=== PATIENT | female | born 1965 | race Caucasian/White ===

== ENCOUNTER 2018-01-30 05:19 | Emergency (ER) | payer BC ==
[2018-01-30] MEDS ORDERED: HYDROmorphone 0.5 MG/0.5 ML SYRINGE IVPUSH ONE ×2 (05:35→06:47)
[2018-01-30] MEDS ORDERED: Metoclopramide 10 MG/2 ML SDV IVPUSH ONE (05:36)
--- NOTE | 2018-01-30 05:40 | EDM.PDOC ---
ED HPI GENERAL MEDICAL PROBLEM - General Chief Complaint: Back Pain or Injury Stated Complaint: BACK PAIN Time Seen by Provider: 01/30/18 05:35 Source of Information: Reports: Patient, Family (spouse) History Limitations: Reports: No Limitations - History of Present Illness INITIAL COMMENTS - FREE TEXT/NARRATIVE: 52-year-old female presents to the ED with her spouse. She awoke around 0130 hrs. this morning with severe bilateral lower back pain radiating into her left groin. She does have pressure rating into her bulb at present. Associated nausea and vomiting from the intensity of the pain 3. Mostly bilious without blood. Does have some feeling of need to void but did not defecate. No history of kidney stones. Pain is currently a 6 out of 10. She is a insulin-dependent diabetic 42 years. Sugars were checked at home and were in the 200s. Currently no position is comfortable. She was fine when she went to bed last night. Onset: Today Onset Date: 01/30/18 Onset Time: 01:30 Duration: Hour(s): Location: Reports: Abdomen (Left lower quadrant abdominal pain), Back (Diffuse low back pain felt across both sides of the L5 facet joint distribution.) Quality: Reports: Other (Pain is constant with a strong intermittent severe colicky component) Severity: Moderate Improves with: Reports: None Worsens with: Reports: None Context: Reports: Other (Awoke from sleep with terrible pain.). Denies: Activity, Exercise, Lifting, Sick Contact, Trauma Associated Symptoms: Reports: Loss of Appetite (Due to the intensity of the pain.), Nausea/Vomiting Treatments DISABILITY MANAGER: Reports: Other (see below) (None.) Bilateral Back Pain Score (Numeric/FACES): 8 - Related Data Allergies Allergy/AdvReac Type Severity Reaction Status Date / Time No Known Allergies Allergy Verified 01/30/18 05:24 Home Meds: Home Meds oxyCODONE HCl/Acetaminophen [Percocet 5-325 mg Tablet] 1 - 2 each PO Q4H PRN # 10 tablet 01/30/18 [Rx] Past Medical History HEENT History: Reports: Impaired Vision Other HEENT History: Wears glasses Endocrine/Metabolic History: Reports: Diabetes, Type I, Hypothyroidism Social & Family History - Living Situation & Occupation Living situation: Reports: Occupation: Employed ED ROS GENERAL - Review of Systems Review Of Systems: See Below Constitutional: Reports: Fatigue, Decreased Appetite. Denies: Fever, Chills HEENT: Reports: No Symptoms Respiratory: Reports: No Symptoms Cardiovascular: Reports: No Symptoms Endocrine: Reports: Fatigue GI/Abdominal: Reports: Abdominal Pain (Diffuse lower abdominal pain mostly suprapubic and little more in the left as compared to the right.), Nausea, Vomiting (Precipitated by intensity of the pain that awoke from sleep at 0130 hrs. this morning) : Reports: Frequency, Urgency. Denies: Dysuria, Flank Pain Musculoskeletal: Reports: Back Pain (Diffuse low back pain) Skin: Reports: No Symptoms Neurological: Reports: No Symptoms Psychiatric: Reports: No Symptoms Hematologic/Lymphatic: Reports: No Symptoms Immunologic: Reports: No Symptoms ED EXAM,LOWER BACK PAIN/INJURY - Physical Exam Exam: See Below Exam Limited By: No Limitations General Appearance: Alert, WD/WN, Moderate Distress (Obviously in pain. No position is comfortable) Eye Exam: Bilateral Eye: Normal Inspection Respiratory/Chest: No Respiratory Distress, Lungs Clear, Normal Breath Sounds Cardiovascular: Normal Peripheral Pulses, Regular Rate, Rhythm, No Edema, No Murmur, No Rub GI/Abdominal: No Organomegaly, No Abnormal Bruit, No Mass, Tender (Mild tenderness suprapubically.), Abnormal Bowel Sounds (Fairly quiet sent bowel sounds.), Other (Some ecchymoses in various locations from insulin injections.) . No: Rigid, Rebound Back Exam: Normal Inspection, Full Range of Motion. No: CVA Tenderness (L), CVA Tenderness (R) Extremities: Normal Inspection, Normal Range of Motion, Non-Tender, No Pedal Edema Neurological: Alert, Normal Mood/Affect, Normal Dorsiflexion, CN II-XII Intact, Oriented x 3 Skin Exam: Warm, Intact, Normal Color, No Rash Course - Vital Signs Last Recorded V/S: Last Vital Signs Temp 37.8 C 01/30/18 05:26 Pulse 83 01/30/18 05:26 Resp 18 01/30/18 05:26 BP 154/71 H 01/30/18 05:26 Pulse Ox 95 01/30/18 05:26 - Orders/Labs/Meds Orders: Active Orders 24 hr Category Date Time Status URINALYSIS W/MICROSCOPIC [UA W/MICROSCOPIC] [URIN] Stat Lab 01/30/18 07:13 Ordered Dicyclomine [Bentyl] Med 01/30/18 07:18 Once 20 mg PO ONETIME ONE Magnesium Citrate [Citrate of Magnesia] Med 01/30/18 07:19 Once 240 ml PO ONETIME ONE Sodium Chloride 0.9% [Normal Saline] 1,000 ml Med 01/30/18 07:00 Active IV ASDIRECTED Medication Orders Dicyclomine HCl (Bentyl) 20 mg PO ONETIME ONE Stop: 01/30/18 07:19 Sodium Chloride (Normal Saline) 1,000 mls @ 999 mls/hr IV ASDIRECTED [facility] Meds: Medications Generic Name Dose Route Start Last Admin Trade Name Freq PRN Reason Stop Dose Admin Dicyclomine HCl 20 mg 01/30/18 07:18 Bentyl PO 01/30/18 07:19 ONETIME ONE Sodium Chloride 1,000 mls @ 999 mls/hr 01/30/18 07:00 Normal Saline IV ASDIRECTED [facility] Discontinued Medications Generic Name Dose Route Start Last Admin Trade Name Freq PRN Reason Stop Dose Admin Hydromorphone HCl 1 mg 01/30/18 05:35 01/30/18 05:47 Dilaudid IVPUSH 01/30/18 05:36 1 mg ONETIME ONE Administration Hydromorphone HCl 0.5 mg 01/30/18 06:47 01/30/18 06:53 Dilaudid IVPUSH 01/30/18 06:48 0.5 mg ONETIME ONE Administration Sodium Chloride 1,000 mls @ 150 mls/hr 01/30/18 05:45 01/30/18 06:48 Normal Saline IV 999 mls/hr ASDIRECTED [facility] Infusion Metoclopramide HCl 7.5 mg 01/30/18 05:36 01/30/18 05:45 Reglan IVPUSH 01/30/18 05:37 7.5 mg ONETIME ONE Administration - Radiology Interpretation Free Text/Narrative:: 52-year-old female presents to the ED after wakening suddenly from sleep with severe bilateral low back pain radiating into the left groin and vulvar area. Associated nausea and vomiting with the onset of the pain at about 1:30 this morning. Feeling fine. No position is been carpal since onset of the pain. Pain is constant but has a strong intermittent colicky component. She has no known chronic back problems. On examination quite bowel sounds throughout. Anion abdomen on examination. No CVA tenderness. The history is strongly suggestive of a renal colic problem. CT abdomen without contrast will be done Urinalysis 1 one becomes available. IV will be normal saline at 150 mils per hour. Dilaudid 1 mg IV with Reglan 7.5 mg IV for nausea and pain relief. Toradol and not be given as she's been insulin-dependent diabetic 42 years. - Re-Assessments/Exams Free Text/Narrative Re-Assessment/Exam: 01/30/18 06:34 CT the abdomen has been completed. Liver appears to be normal. Gallbladder is visualized without any obvious gallstones. Pancreas is mildly atrophic. Spleen is normal. Both kidneys are atrophic in appearance. There is minimal bilateral perinephric stranding. I could not identify any dilatation of the ureters or evidence of stone disease. There are no stones within the renal parenchyma. The colon is fairly stool-filled ,particularly on the right side up to the hepatic flexure. No evidence of diverticulitis is evident. Appendix is visualized and is felt to be within normal limits. Disc spaces are well maintained although there are moderate degenerative arthritic changes in the lumbar spine. Therefore no specific cause for her diffuse low back pain is identified. I will await V rad report. 01/30/18 06:39 Still has not been able to void. Pain is still of 5 or 6 out of 10 in her low back. She reports that when she was in to see her family physician couple weeks back she was identified to have a low-grade bacterial infection I suspect bacterial vaginosis by the way she speaking and she was on a one-week course of Flagyl. Been off this medication for couple of weeks. There was no mention of PID. Plan I'm going to open up her IV so that I can get a urine specimen. Will give her 0.5 of Dilaudid IV for further pain relief. 01/30/18 07:19 radiologist is over read her CT and agrees with me with no positive findings. His only the significant finding of constipation as a possible cause of her pain. Possible due to diabetes that she may have ischemia of an organ but this is certainly not evident at this time. I'm going to allow her to go home and provide bowel cleanse with Citroma 8 ounces but quit by mouth for 6 ounces of juice of choice. Bentyl 20 mg will be given by mouth now to help alleviate cramping /colicky pain. It may take a few hours for the Citroma to work as she has pain medicine on board. Once her bowel cleanse her pain should be gone. She was advised if she is not better by 4:00 this afternoon she is to return to the ED. She will need further investigations and imaging. Departure - Departure Time of Disposition: 07:23 Disposition: Home, Self-Care 01 Condition: Fair Clinical Impression: Constipation by delayed colonic transit Low back pain Qualifiers: Chronicity: acute Back pain laterality: bilateral Sciatica presence: without sciatica Qualified Code(s): M54.5 - Low back pain - Discharge Information Prescriptions: oxyCODONE HCl/Acetaminophen [Percocet 5-325 mg Tablet] 1 - 2 each PO Q4H PRN # 10 tablet PRN Reason: pain relief. Referrals: Kobe Maravilla MD [Primary Care Provider] - Forms: ED Department Discharge, ED Return to Work/School Form Additional Instructions: Evaluation the emergency room this morning due to awakening from sleep with severe low back pain which was more or less bilateral. Associated development of nausea and vomiting. Pain in the left lower groin and vulvar area. Concern was for possibility of a kidney stone. You received medication Dilaudid 1 mg IV with Reglan 710 mg IV for relief of pain and nausea. Subsequent he required another 0.5 mg of Dilaudid for pain relief. CT scan of the abdomen and pelvis was performed and did not reveal any evidence of kidney stones. Gallbladder shows no evidence of stones liver pancreas appeared to be normal. The only positive finding was increased stool throughout the entire colon compatible with constipation. Pelvic organs look to be normal with ovaries present without any major cysts or free fluid in the pelvis. Back bones also look to be okay without any stents severe degenerative disc disease or degenerative arthritis. Changes were age-appropriate. Suggest treatment with Citroma 8 ounces by mouth with 6 ounces of juice of choice orally once when you get home this morning. This may take a few hours to kick in situ pain medicine on board. Bowls should work 3-5 times over the next 6-8 hours. This should alleviate your lower abdominal /back pain. May use Percocet 5/3/25 milligram tablet 1 or 2 every 4-6 hours if needed for pain relief. If you are not we will back to normal within the next 8-12 hours you're to return to the ED for further investigations. Obviously off work today and in no provided in this regard. - My Orders Last 24 Hours: My Active Orders 01/30/18 07:00 Sodium Chloride 0.9% [Normal Saline] 1,000 ml IV ASDIRECTED 01/30/18 07:13 URINALYSIS W/MICROSCOPIC [UA W/MICROSCOPIC] [URIN] Stat 01/30/18 07:18 Dicyclomine [Bentyl] 20 mg PO ONETIME ONE 01/30/18 07:19 Magnesium Citrate [Citrate of Magnesia] 240 ml PO ONETIME ONE - Assessment/Plan Last 24 Hours: My Active Orders 01/30/18 07:00 Sodium Chloride 0.9% [Normal Saline] 1,000 ml IV ASDIRECTED 01/30/18 07:13 URINALYSIS W/MICROSCOPIC [UA W/MICROSCOPIC] [URIN] Stat 01/30/18 07:18 Dicyclomine [Bentyl] 20 mg PO ONETIME ONE 01/30/18 07:19 Magnesium Citrate [Citrate of Magnesia] 240 ml PO ONETIME ONE
[2018-01-30] MEDS ORDERED: Sodium Chloride 0.9% 1,000 ML IV SCH ×2 (05:45→07:00)
--- NOTE | 2018-01-30 06:57 | CT ---
CT abdomen and pelvis Technique: Multiple axial sections were obtained from top of the liver inferiorly through the pubic symphysis. Intravenous and oral contrast was not utilized. Comparison: No previous study. Findings: Kidneys show no abnormal calcifications. Adrenal glands show no nodule. No abnormal calcifications are seen within the kidneys. Ureters show no dilatation. No abnormal calcifications are seen along the course of the ureters. Visualized lung bases shows nothing acute. Noncontrast appearance of the spleen and liver shows no focal abnormality. Adrenal glands show no nodule. Pancreas appears within normal limits. Gallbladder contains no calcified gallstones. Aorta shows no aneurysmal dilatation. No retroperitoneal adenopathy or mesenteric abnormalities are seen. Appendix is seen which is normal in size. No pelvic mass or adenopathy is seen. Low density areas are seen within the cervix believed to represent incidental nabothian cysts. Bone window settings were reviewed which shows slight degenerative change within the spine. Impression: 1. No renal calculi, ureteral dilatation or ureteral stone is seen. 2. Other incidental findings. Nothing acute is appreciated on noncontrast CT study of the abdomen and pelvis. Diagnostic code #2
[2018-01-30] MEDS ORDERED: Dicyclomine 10 MG Cap PO ONE (07:18)
[2018-01-30] MEDS ORDERED: Magnesium Citrate Solution 296 ML Bottle PO ONE (07:19)
== END 2018-01-30 07:52 | disposition home or self-care (01) ==
LOC: JD.ED 05:19
DX: K59.01 Slow transit constipation (principal); M54.5 Low back pain; E10.9 Type 1 diabetes mellitus without complications
CPT/HCPCS: 74176; 81001; 96361; 96374; 96375; 96376; 99284; J1170; J2765; J7040

== ENCOUNTER 2018-02-15 11:26 | Inpatient (IN) | payer BC ==
[2018-02-15] MEDS ORDERED: Lactated Ringers 1,000 ML IV ONE ×2 (12:29→13:48)
[2018-02-15] MEDS ORDERED: Sodium Chloride 0.9% 10 ML Syringe FLUSH PRN (12:30)
[2018-02-15] MEDS ORDERED: Ondansetron 4 MG/2 ML SDV IVPUSH ONE (12:30)
--- NOTE | 2018-02-15 12:58 | EDM.PDOC ---
ED HPI GENERAL MEDICAL PROBLEM - General Chief Complaint: Diabetic Complaint Stated Complaint: BODY ACHES/VOMITING Time Seen by Provider: 02/15/18 12:13 Source of Information: Reports: Patient History Limitations: Reports: No Limitations - History of Present Illness INITIAL COMMENTS - FREE TEXT/NARRATIVE: 52-year-old female presents for evaluation and treatment of abdominal discomfort , vomiting and malaise. She states she has been feeling unwell for the last 2 weeks. She was seen in our ER proximally 2 weeks ago. UA and CT of the abdomen and pelvis without IV and oral contrast was done. She states she was diagnosed with constipation. She did the bowel cleanout as prescribed but her symptoms continue to worsen. This Sunday she saw her primary care provider, Dr. Chauhan, she had lab work done. On Sunday she was given fluids. She feels that her symptoms are slowly worsening. Patient reports current symptoms of generalized abdominal discomfort which she describes as an intermit "fire ". reports that she had an episode of diaphoresis and dizziness earlier which prompted the visit to the ER tonight. She has been feeling nauseous and vomited once this morning. She states that she is not much and appetite has not much to eat since last Sunday. In addition she has a dry nonproductive cough. No ear pain or sore throat. Patient has a past medical history of type 1 diabetes. She is currently on sliding scale NovoLog and Toujeo at night. Last dose of Toujeo was last night. Her last dose of NovoLog was this morning, she states that she utilized 4 units. Her last blood sugar was 289 this morning. She has never had any history of DKA. Generalized Pain Score (Numeric/FACES): 8 lower abdomen Pain Score (Numeric/FACES): 2 - Related Data Allergies Allergy/AdvReac Type Severity Reaction Status Date / Time No Known Allergies Allergy Verified 02/15/18 12:03 Home Meds: Home Meds Ondansetron [Zofran ODT] 4 mg PO Q6H PRN #20 tab.dis 02/15/18 [Rx] Past Medical History HEENT History: Reports: Impaired Vision Other HEENT History: Wears glasses Endocrine/Metabolic History: Reports: Diabetes, Type I, Hypothyroidism Social & Family History - Tobacco Use Smoking Status *Q: Unknown Ever Smoked - Living Situation & Occupation Living situation: Reports: Occupation: Employed ED ROS GENERAL - Review of Systems Review Of Systems: See Below Constitutional: Reports: Malaise, Weakness, Fatigue, Diaphoresis. Denies: Fever HEENT: Denies: Ear Pain, Throat Pain Respiratory: Reports: Shortness of Breath (episodic), Cough. Denies: Sputum Cardiovascular: Reports: Chest Pain ("some") GI/Abdominal: Reports: Abdominal Pain (generalized "fire"), Nausea, Vomiting Neurological: Reports: Dizziness ED EXAM GENERAL NO PERIP PULSE - Physical Exam Exam: See Below Exam Limited By: No Limitations General Appearance: Alert, WD/WN, No Apparent Distress, Mild Distress, Obese, Other (acutely ill appearing) Eye Exam: Bilateral Eye: Normal Inspection Ears: Normal External Exam Nose: Normal Inspection Throat/Mouth: Normal Inspection, Normal Lips, Normal Voice, No Airway Compromise , Other (dry mucus membranes, smells of ketones) Respiratory/Chest: No Respiratory Distress, Lungs Clear, Normal Breath Sounds Cardiovascular: Normal Peripheral Pulses, Regular Rate, Rhythm, No Murmur GI/Abdominal: Normal Bowel Sounds, Soft, Non-Tender Extremities: Normal Inspection Neurological: Alert, Oriented, Normal Cognition Psychiatric: Normal Affect, Normal Mood Skin Exam: Warm, Dry, Normal Color EKG INTERPRETATION EKG Date: 02/15/18 Time: 15:40 Rhythm: NSR Rate (Beats/Min): 63 [place]: LAD-Left [place] Deviation P-Wave: Present QRS: Normal ST-T: Normal QT: Normal EKG Interpretation Comments: NSR at 63 bpm. First degree AV block. No ischmic changes. LAD. NO LVH. NO IVCDs. QTc within normal limits. Reviewd by myself and Dr. Hanson. Course - Vital Signs Last Recorded V/S: Last Vital Signs Temp 98.5 F 02/15/18 11:59 Pulse 58 L 02/15/18 11:59 Resp 18 02/15/18 11:59 BP 169/82 H 02/15/18 11:59 Pulse Ox 99 02/15/18 18:13 - Orders/Labs/Meds Orders: Active Orders 24 hr Category Date Time Status RESPIRATORY PANEL BY PCR [MREF] Stat Lab 02/15/18 17:35 Ordered UA W/MICROSCOPIC [URIN] Stat Lab 02/15/18 13:35 Ordered Sodium Chloride 0.9% [Saline Flush] Med 02/15/18 12:30 Active 10 ml FLUSH ASDIRECTED PRN Peripheral IV Insertion Adult [OM.PC] Routine Oth 02/15/18 12:29 Ordered EKG 12 Lead [EK] Stat Ther 02/15/18 14:58 Ordered Medication Orders Acetaminophen (Tylenol) 650 mg PO Q4H PRN PRN Reason: Pain (Mild 1-3)/fever Albuterol/Ipratropium (Duoneb 3.0-0.5 Mg/3 Ml) 3 ml NEB Q4H PRN PRN Reason: Shortness Of Breath/wheezing Bisacodyl (Dulcolax) 5 mg PO DAILY PRN PRN Reason: Constipation Dextrose/Water (Dextrose 50% In Water) 50 ml IVPUSH ASDIRECTED PRN PRN Reason: Hypoglycemia Docusate Sodium (Colace) 100 mg PO BID PRN PRN Reason: Constipation Famotidine (Pepcid) 20 mg IVPUSH BID WILLIAM Hydralazine HCl (Apresoline) 20 mg IVPUSH Q4H PRN PRN Reason: Hypertension Sodium Chloride (Normal Saline) 1,000 mls @ 100 mls/hr IV ASDIRECTED [facility] Last Admin: 02/15/18 18:39 Dose: 100 mls/hr Insulin Aspart (Novolog) 0 unit SUBCUT Q6H [facility]; Protocol Last Admin: 02/15/18 18:34 Dose: 4 units Lorazepam (Ativan) 2 mg IVPUSH Q4H PRN PRN Reason: Seizures Magnesium Sulfate (Pharmacy To Dose - Magnesium Replacement) 1 dose .XX ASDIRECTED [facility] Metoclopramide HCl (Reglan) 5 mg IVPUSH ACBED [facility] Stop: 02/16/18 17:01 Metoclopramide HCl (Reglan) 5 mg PO ACBED [facility] Metoprolol Tartrate (Lopressor) 5 mg IVPUSH Q4H PRN PRN Reason: Tachycardia Miscellaneous Information (Remove Patch) 1 ea TRDERM Q72H [facility] Stop: 02/18/18 18:31 Last Admin: 02/15/18 18:37 Dose: Not Given Potassium Chloride (Pharmacy To Dose - Potassium Replacement) 1 dose .XX ASDIRECTED [facility] Senna/Docusate Sodium (Senna Plus) 1 tab PO BID PRN PRN Reason: Constipation Sodium Chloride (Saline Flush) 10 ml FLUSH ASDIRECTED PRN PRN Reason: Keep Vein Open Last Admin: 02/15/18 13:05 Dose: 10 ml Temazepam (Restoril) 15 mg PO BEDTIME PRN PRN Reason: Sleep Labs: Laboratory Tests 02/15/18 02/15/18 02/15/18 Range/Units 12:48 13:09 13:09 WBC 8.79 (3.98-10.04) K/mm3 RBC 5.06 (3.98-5.22) M/mm3 Hgb 14.3 (11.2-15.7) gm/L Hct 39.7 (34.1-44.9) % MCV 78.5 L (79.4-94.8) fl MCH 28.3 (25.6-32.2) pg MCHC 36.0 H (32.2-35.5) g/dl RDW Std Deviation 37.2 (36.4-46.3) fL Plt Count 247 (182-369) K/mm3 MPV 10.3 (9.4-12.3) fl Neut % (Auto) 69.8 (34.0-71.1) % Lymph % (Auto) 23.5 (19.3-51.7) % [place] % (Auto) 6.0 (4.7-12.5) % Eos % (Auto) 0.3 L (0.7-5.8) Baso % (Auto) 0.2 (0.1-1.2) % Neut # (Auto) 6.12 (1.56-6.13) K/mm3 Lymph # (Auto) 2.07 (1.18-3.74) K/mm3 [place] # (Auto) 0.53 H (0.24-0.36) K/mm3 Eos # (Auto) 0.03 L (0.04-0.36) K/mm3 Baso # (Auto) 0.02 (0.01-0.08) K/mm3 D-Dimer, Quantitative (0.19-0.50) mg/L Puncture Site Lt radial ABG pH 7.53 H (7.35-7.45) ABG pCO2 22.6 L (35.0-45.0) mmHg ABG pO2 101.0 H (80.0-100.0) mmHg ABG HCO3 19.0 L (22.0-26.0) meq/L ABG O2 Saturation 98.6 H (96.0-97.0) % ABG Base Excess -1.6 (-2-2.0) Romario Test Positive A-a Gradient 5 mmHg FiO2 21.00 (21.00-100.00) % Sodium 136 (136-145) mEq/L Potassium 3.6 (3.5-5.1) mEq/L Chloride 103 (98-107) mEq/L Carbon Dioxide 23 (21-32) mEq/L Anion Gap 13.6 (5-15) BUN 13 (7-18) mg/dL Creatinine 0.8 (0.55-1.02) mg/dL Est Cr Clr Drug Dosing TNP Estimated GFR (MDRD) > 60 (>60) mL/min BUN/Creatinine Ratio 16.3 (14-18) Glucose 282 H (74-106) mg/dL POC Glucose (70-105) mg/dL Hemoglobin A1c (4.50-6.20) % Serum Osmolality 293 (280-300) mosm/kg Lactic Acid (0.4-2.0) mmol/L Calcium 8.3 L (8.5-10.1) mg/dL Magnesium 1.5 L (1.8-2.4) mg/dl Total Bilirubin 0.8 (0.2-1.0) mg/dL AST 16 (15-37) U/L ALT 13 L (14-59) U/L Alkaline Phosphatase 83 (46-116) U/L Troponin I (0.00-0.056) ng/mL C-Reactive Protein (<1.0) mg/dL Total Protein 7.0 (6.4-8.2) g/dl Albumin 3.1 L (3.4-5.0) g/dl Globulin 3.9 gm/dL Albumin/Globulin Ratio 0.8 L (1-2) Lipase (73-393) U/L TSH 3rd Generation (0.358-3.74) uIU/mL Urine Color (Yellow) Urine Appearance (Clear) Urine pH (5.0-8.0) Ur Specific [place] (1.005-1.030) Urine Protein (Negative) Urine Glucose (UA) (Negative) Urine Ketones (Negative) Urine Occult Blood (Negative) Urine Nitrite (Negative) Urine Bilirubin (Negative) Urine Urobilinogen (0.2-1.0) Ur Leukocyte Esterase (Negative) Urine RBC (0-5) /hpf Urine WBC (0-5) /hpf Ur Epithelial Cells (0-5) /hpf Urine Bacteria (FEW) /hpf Urine Mucus (FEW) /hpf Ketones (0.0-0.3) mM 02/15/18 02/15/18 02/15/18 Range/Units 13:09 13:09 13:09 WBC (3.98-10.04) K/mm3 RBC (3.98-5.22) M/mm3 Hgb (11.2-15.7) gm/L Hct (34.1-44.9) % MCV (79.4-94.8) fl MCH (25.6-32.2) pg MCHC (32.2-35.5) g/dl RDW Std Deviation (36.4-46.3) fL Plt Count (182-369) K/mm3 MPV (9.4-12.3) fl Neut % (Auto) (34.0-71.1) % Lymph % (Auto) (19.3-51.7) % [place] % (Auto) (4.7-12.5) % Eos % (Auto) (0.7-5.8) Baso % (Auto) (0.1-1.2) % Neut # (Auto) (1.56-6.13) K/mm3 Lymph # (Auto) (1.18-3.74) K/mm3 [place] # (Auto) (0.24-0.36) K/mm3 Eos # (Auto) (0.04-0.36) K/mm3 Baso # (Auto) (0.01-0.08) K/mm3 D-Dimer, Quantitative 0.30 (0.19-0.50) mg/L Puncture Site ABG pH (7.35-7.45) ABG pCO2 (35.0-45.0) mmHg ABG pO2 (80.0-100.0) mmHg ABG HCO3 (22.0-26.0) meq/L ABG O2 Saturation (96.0-97.0) % ABG Base Excess (-2-2.0) Romario Test A-a Gradient mmHg FiO2 (21.00-100.00) % Sodium (136-145) mEq/L Potassium (3.5-5.1) mEq/L Chloride (98-107) mEq/L Carbon Dioxide (21-32) mEq/L Anion Gap (5-15) BUN (7-18) mg/dL Creatinine (0.55-1.02) mg/dL Est Cr Clr Drug Dosing Estimated GFR (MDRD) (>60) mL/min BUN/Creatinine Ratio (14-18) Glucose (74-106) mg/dL POC Glucose (70-105) mg/dL Hemoglobin A1c (4.50-6.20) % Serum Osmolality (280-300) mosm/kg Lactic Acid (0.4-2.0) mmol/L Calcium (8.5-10.1) mg/dL Magnesium (1.8-2.4) mg/dl Total Bilirubin (0.2-1.0) mg/dL AST (15-37) U/L ALT (14-59) U/L Alkaline Phosphatase (46-116) U/L Troponin I (0.00-0.056) ng/mL C-Reactive Protein 0.9 (<1.0) mg/dL Total Protein (6.4-8.2) g/dl Albumin (3.4-5.0) g/dl Globulin gm/dL Albumin/Globulin Ratio (1-2) Lipase (73-393) U/L TSH 3rd Generation 1.915 (0.358-3.74) uIU/mL Urine Color (Yellow) Urine Appearance (Clear) Urine pH (5.0-8.0) Ur Specific [place] (1.005-1.030) Urine Protein (Negative) Urine Glucose (UA) (Negative) Urine Ketones (Negative) Urine Occult Blood (Negative) Urine Nitrite (Negative) Urine Bilirubin (Negative) Urine Urobilinogen (0.2-1.0) Ur Leukocyte Esterase (Negative) Urine RBC (0-5) /hpf Urine WBC (0-5) /hpf Ur Epithelial Cells (0-5) /hpf Urine Bacteria (FEW) /hpf Urine Mucus (FEW) /hpf Ketones 1.5 (0.0-0.3) mM 02/15/18 02/15/18 02/15/18 Range/Units 13:09 13:09 13:09 WBC (3.98-10.04) K/mm3 RBC (3.98-5.22) M/mm3 Hgb (11.2-15.7) gm/L Hct (34.1-44.9) % MCV (79.4-94.8) fl MCH (25.6-32.2) pg MCHC (32.2-35.5) g/dl RDW Std Deviation (36.4-46.3) fL Plt Count (182-369) K/mm3 MPV (9.4-12.3) fl Neut % (Auto) (34.0-71.1) % Lymph % (Auto) (19.3-51.7) % [place] % (Auto) (4.7-12.5) % Eos % (Auto) (0.7-5.8) Baso % (Auto) (0.1-1.2) % Neut # (Auto) (1.56-6.13) K/mm3 Lymph # (Auto) (1.18-3.74) K/mm3 [place] # (Auto) (0.24-0.36) K/mm3 Eos # (Auto) (0.04-0.36) K/mm3 Baso # (Auto) (0.01-0.08) K/mm3 D-Dimer, Quantitative (0.19-0.50) mg/L Puncture Site ABG pH (7.35-7.45) ABG pCO2 (35.0-45.0) mmHg ABG pO2 (80.0-100.0) mmHg ABG HCO3 (22.0-26.0) meq/L ABG O2 Saturation (96.0-97.0) % ABG Base Excess (-2-2.0) Romario Test A-a Gradient mmHg FiO2 (21.00-100.00) % Sodium (136-145) mEq/L Potassium (3.5-5.1) mEq/L Chloride (98-107) mEq/L Carbon Dioxide (21-32) mEq/L Anion Gap (5-15) BUN (7-18) mg/dL Creatinine (0.55-1.02) mg/dL Est Cr Clr Drug Dosing Estimated GFR (MDRD) (>60) mL/min BUN/Creatinine Ratio (14-18) Glucose (74-106) mg/dL POC Glucose (70-105) mg/dL Hemoglobin A1c 7.20 H (4.50-6.20) % Serum Osmolality (280-300) mosm/kg Lactic Acid (0.4-2.0) mmol/L Calcium (8.5-10.1) mg/dL Magnesium (1.8-2.4) mg/dl Total Bilirubin (0.2-1.0) mg/dL AST (15-37) U/L ALT (14-59) U/L Alkaline Phosphatase (46-116) U/L Troponin I < 0.017 (0.00-0.056) ng/mL C-Reactive Protein 1.2 H* (<1.0) mg/dL Total Protein (6.4-8.2) g/dl Albumin (3.4-5.0) g/dl Globulin gm/dL Albumin/Globulin Ratio (1-2) Lipase 49 L (73-393) U/L TSH 3rd Generation (0.358-3.74) uIU/mL Urine Color (Yellow) Urine Appearance (Clear) Urine pH (5.0-8.0) Ur Specific [place] (1.005-1.030) Urine Protein (Negative) Urine Glucose (UA) (Negative) Urine Ketones (Negative) Urine Occult Blood (Negative) Urine Nitrite (Negative) Urine Bilirubin (Negative) Urine Urobilinogen (0.2-1.0) Ur Leukocyte Esterase (Negative) Urine RBC (0-5) /hpf Urine WBC (0-5) /hpf Ur Epithelial Cells (0-5) /hpf Urine Bacteria (FEW) /hpf Urine Mucus (FEW) /hpf Ketones (0.0-0.3) mM 02/15/18 02/15/18 02/15/18 Range/Units 13:14 13:35 15:18 WBC (3.98-10.04) K/mm3 RBC (3.98-5.22) M/mm3 Hgb (11.2-15.7) gm/L Hct (34.1-44.9) % MCV (79.4-94.8) fl MCH (25.6-32.2) pg MCHC (32.2-35.5) g/dl RDW Std Deviation (36.4-46.3) fL Plt Count (182-369) K/mm3 MPV (9.4-12.3) fl Neut % (Auto) (34.0-71.1) % Lymph % (Auto) (19.3-51.7) % [place] % (Auto) (4.7-12.5) % Eos % (Auto) (0.7-5.8) Baso % (Auto) (0.1-1.2) % Neut # (Auto) (1.56-6.13) K/mm3 Lymph # (Auto) (1.18-3.74) K/mm3 [place] # (Auto) (0.24-0.36) K/mm3 Eos # (Auto) (0.04-0.36) K/mm3 Baso # (Auto) (0.01-0.08) K/mm3 D-Dimer, Quantitative (0.19-0.50) mg/L Puncture Site ABG pH (7.35-7.45) ABG pCO2 (35.0-45.0) mmHg ABG pO2 (80.0-100.0) mmHg ABG HCO3 (22.0-26.0) meq/L ABG O2 Saturation (96.0-97.0) % ABG Base Excess (-2-2.0) Romario Test A-a Gradient mmHg FiO2 (21.00-100.00) % Sodium (136-145) mEq/L Potassium (3.5-5.1) mEq/L Chloride (98-107) mEq/L Carbon Dioxide (21-32) mEq/L Anion Gap (5-15) BUN (7-18) mg/dL Creatinine (0.55-1.02) mg/dL Est Cr Clr Drug Dosing Estimated GFR (MDRD) (>60) mL/min BUN/Creatinine Ratio (14-18) Glucose (74-106) mg/dL POC Glucose 320 H (70-105) mg/dL Hemoglobin A1c (4.50-6.20) % Serum Osmolality (280-300) mosm/kg Lactic Acid 1.4 (0.4-2.0) mmol/L Calcium (8.5-10.1) mg/dL Magnesium (1.8-2.4) mg/dl Total Bilirubin (0.2-1.0) mg/dL AST (15-37) U/L ALT (14-59) U/L Alkaline Phosphatase (46-116) U/L Troponin I (0.00-0.056) ng/mL C-Reactive Protein (<1.0) mg/dL Total Protein (6.4-8.2) g/dl Albumin (3.4-5.0) g/dl Globulin gm/dL Albumin/Globulin Ratio (1-2) Lipase (73-393) U/L TSH 3rd Generation (0.358-3.74) uIU/mL Urine Color Yellow (Yellow) Urine Appearance Clear (Clear) Urine pH 7.0 (5.0-8.0) Ur Specific [place] 1.015 (1.005-1.030) Urine Protein Negative (Negative) Urine Glucose (UA) 2+ H (Negative) Urine Ketones 4+ H (Negative) Urine Occult Blood Negative (Negative) Urine Nitrite Negative (Negative) Urine Bilirubin Negative (Negative) Urine Urobilinogen 1.0 (0.2-1.0) Ur Leukocyte Esterase Negative (Negative) Urine RBC 0-5 (0-5) /hpf Urine WBC 0-5 (0-5) /hpf Ur Epithelial Cells 0-5 (0-5) /hpf Urine Bacteria Few (FEW) /hpf Urine Mucus Not seen (FEW) /hpf Ketones (0.0-0.3) mM // Range/Units 16:00 WBC (3.98-10.04) K/mm3 RBC (3.98-5.22) M/mm3 Hgb (11.2-15.7) gm/L Hct (34.1-44.9) % MCV (79.4-94.8) fl MCH (25.6-32.2) pg MCHC (32.2-35.5) g/dl RDW Std Deviation (36.4-46.3) fL Plt Count (182-369) K/mm3 MPV (9.4-12.3) fl Neut % (Auto) (34.0-71.1) % Lymph % (Auto) (19.3-51.7) % [place] % (Auto) (4.7-12.5) % Eos % (Auto) (0.7-5.8) Baso % (Auto) (0.1-1.2) % Neut # (Auto) (1.56-6.13) K/mm3 Lymph # (Auto) (1.18-3.74) K/mm3 [place] # (Auto) (0.24-0.36) K/mm3 Eos # (Auto) (0.04-0.36) K/mm3 Baso # (Auto) (0.01-0.08) K/mm3 D-Dimer, Quantitative (0.19-0.50) mg/L Puncture Site ABG pH (7.35-7.45) ABG pCO2 (35.0-45.0) mmHg ABG pO2 (80.0-100.0) mmHg ABG HCO3 (22.0-26.0) meq/L ABG O2 Saturation (96.0-97.0) % ABG Base Excess (-2-2.0) Romario Test A-a Gradient mmHg FiO2 (21.00-100.00) % Sodium (136-145) mEq/L Potassium (3.5-5.1) mEq/L Chloride (98-107) mEq/L Carbon Dioxide (21-32) mEq/L Anion Gap (5-15) BUN (7-18) mg/dL Creatinine (0.55-1.02) mg/dL Est Cr Clr Drug Dosing Estimated GFR (MDRD) (>60) mL/min BUN/Creatinine Ratio (14-18) Glucose (74-106) mg/dL POC Glucose 243 H (70-105) mg/dL Hemoglobin A1c (4.50-6.20) % Serum Osmolality (280-300) mosm/kg Lactic Acid (0.4-2.0) mmol/L Calcium (8.5-10.1) mg/dL Magnesium (1.8-2.4) mg/dl Total Bilirubin (0.2-1.0) mg/dL AST (15-37) U/L ALT (14-59) U/L Alkaline Phosphatase (46-116) U/L Troponin I (0.00-0.056) ng/mL C-Reactive Protein (<1.0) mg/dL Total Protein (6.4-8.2) g/dl Albumin (3.4-5.0) g/dl Globulin gm/dL Albumin/Globulin Ratio (1-2) Lipase (73-393) U/L TSH 3rd Generation (0.358-3.74) uIU/mL Urine Color (Yellow) Urine Appearance (Clear) Urine pH (5.0-8.0) Ur Specific [place] (1.005-1.030) Urine Protein (Negative) Urine Glucose (UA) (Negative) Urine Ketones (Negative) Urine Occult Blood (Negative) Urine Nitrite (Negative) Urine Bilirubin (Negative) Urine Urobilinogen (0.2-1.0) Ur Leukocyte Esterase (Negative) Urine RBC (0-5) /hpf Urine WBC (0-5) /hpf Ur Epithelial Cells (0-5) /hpf Urine Bacteria (FEW) /hpf Urine Mucus (FEW) /hpf Ketones (0.0-0.3) mM Meds: Medications Generic Name Dose Route Start Last Admin Trade Name Freq PRN Reason Stop Dose Admin Acetaminophen 650 mg 02/15/18 18:12 Tylenol PO Q4H PRN Pain (Mild 1-3)/fever Albuterol/Ipratropium 3 ml 02/15/18 18:12 Duoneb 3.0-0.5 Mg/3 Ml NEB Q4H PRN Shortness Of Breath/wheezing Bisacodyl 5 mg 02/15/18 18:12 Dulcolax PO DAILY PRN Constipation Dextrose/Water 50 ml 02/15/18 17:36 Dextrose 50% In Water IVPUSH ASDIRECTED PRN Hypoglycemia Docusate Sodium 100 mg 02/15/18 18:12 Colace PO BID PRN Constipation Famotidine 20 mg 02/16/18 09:00 Pepcid IVPUSH BID WILLIAM Hydralazine HCl 20 mg 02/15/18 17:35 Apresoline IVPUSH Q4H PRN Hypertension Sodium Chloride 1,000 mls @ 100 mls/hr 02/15/18 18:30 02/15/18 18:39 Normal Saline IV 100 mls/hr ASDIRECTED WILLIAM Administration Insulin Aspart 0 unit 02/15/18 17:45 02/15/18 18:34 Novolog SUBCUT 4 units Q6H WILLIAM Administration Protocol Lorazepam 2 mg 02/15/18 17:35 Ativan IVPUSH Q4H PRN Seizures Magnesium Sulfate 1 dose 02/15/18 17:45 Pharmacy To Dose - Magnesium Replacement .XX ASDIRECTED WILLIAM Metoclopramide HCl 5 mg 02/16/18 07:00 Reglan IVPUSH 02/16/18 17:01 ACBED [facility] Metoclopramide HCl 5 mg 02/16/18 22:00 Reglan PO ACBED [facility] Metoprolol Tartrate 5 mg 02/15/18 17:35 Lopressor IVPUSH Q4H PRN Tachycardia Miscellaneous Information 1 ea 02/15/18 18:30 02/15/18 18:37 Remove Patch TRDERM 02/18/18 18:31 Not Given Q72H [facility] Potassium Chloride 1 dose 02/15/18 17:45 Pharmacy To Dose - Potassium Replacement .XX ASDIRECTED [facility] Senna/Docusate Sodium 1 tab 02/15/18 18:12 Senna Plus PO BID PRN Constipation Sodium Chloride 10 ml 02/15/18 12:30 02/15/18 13:05 Saline Flush FLUSH 10 ml ASDIRECTED PRN Administration Keep Vein Open Temazepam 15 mg 02/15/18 18:12 Restoril PO BEDTIME PRN Sleep Discontinued Medications Generic Name Dose Route Start Last Admin Trade Name Freq PRN Reason Stop Dose Admin Albuterol/Ipratropium 3 ml 02/15/18 18:14 Duoneb 3.0-0.5 Mg/3 Ml NEB Q4H PRN Shortness Of Breath/wheezing Famotidine 20 mg 02/15/18 18:27 02/15/18 18:37 Pepcid IVPUSH 02/15/18 18:28 20 mg ONETIME ONE Administration Lactated Ringer's 1,000 mls @ 999 mls/hr 02/15/18 12:29 02/15/18 13:05 Ringers, Lactated IV 02/15/18 13:29 999 mls/hr .BOLUS ONE Administration Lactated Ringer's 1,000 mls @ 999 mls/hr 02/15/18 13:48 02/15/18 14:07 Ringers, Lactated IV 02/15/18 14:48 999 mls/hr .BOLUS ONE Administration Magnesium Sulfate 2 gm/ Premix 50 mls @ 50 mls/hr 02/15/18 15:53 02/15/18 16: 05 IV 02/15/18 16:52 50 mls/hr ONETIME ONE Administration Erythromycin Lactobionate 250 100 mls @ 100 mls/hr 02/15/18 18:30 02/15/18 18 :58 mg/ Sodium Chloride IV 02/16/18 13:29 100 mls/hr Q6H WILLIAM Administration Insulin Aspart 3 unit 02/15/18 16:04 02/15/18 16:11 Novolog SUBCUT 02/15/18 16:05 3 units NOW STA Administration Ketorolac Tromethamine 15 mg 02/15/18 13:39 02/15/18 18:48 Toradol IVPUSH 02/15/18 13:40 Not Given ONETIME ONE Lorazepam 0.5 mg 02/15/18 16:02 02/15/18 16:12 Ativan IVPUSH 02/15/18 16:03 0.5 mg ONETIME ONE Administration Metoclopramide HCl 10 mg 02/15/18 17:45 02/15/18 18:49 Reglan IVPUSH 02/16/18 11:46 Not Given Q6H WILLIAM Metoclopramide HCl 10 mg 02/15/18 18:24 02/15/18 18:34 Reglan IVPUSH 02/15/18 18:25 10 mg ONETIME ONE Administration Metoclopramide HCl 10 mg 02/16/18 07:00 Reglan IVPUSH 02/16/18 19:01 Q6H WILLIAM Metoclopramide HCl 10 mg 02/17/18 07:00 Reglan PO ACBED WILLIAM Metoclopramide HCl 5 mg 02/17/18 07:00 Reglan IVPUSH 02/17/18 19:01 Q6H WILLIAM Ondansetron HCl 4 mg 02/15/18 12:30 02/15/18 13:05 Zofran IVPUSH 02/15/18 12:31 4 mg ONETIME ONE Administration Scopolamine 1.5 mg 02/15/18 18:18 02/15/18 18:34 Transderm-Scop TRDERM 02/15/18 18:19 1.5 mg Q72H ONE Administration - Radiology Interpretation Free Text/Narrative:: Chest: Two views of the chest were obtained. Comparison: No prior chest x-ray. Heart size and mediastinum are normal. Lungs are clear. Bony structures are unremarkable. Impression: 1. Nothing acute is seen on two-view chest x-ray. - Re-Assessments/Exams Free Text/Narrative Re-Assessment/Exam: 02/15/18 16:31 I reviewed the patient's labs and imaging with her. She has a respiratory alkalosis, hypomagnesemia and hyperglycemia. I did give her 2 liters of LR. The case was discussed with Dr. Hanson, ER physician. Recommended ruling out a pulmonary embolus and silent RI. EKG and additional labs including d-dimer, troponin, lipase were ordered. The patient had an episode where she became quite dizzy and short of breath. I entered the room. Her oxygen sats were 100% on room air. She was tachypneic and sitting on the edge of the bed. Very anxious at this time. Lungs were clear to auscultation. I asked nursing staff to check her blood sugar, blood sugar at this time is 243. I reassured her and ordered her 0.5 mg Ativan. I also gave her 3 units of NovoLog for her elevated sugar. When checked on her later she states that the Ativan helped her sleep and she feels much more relaxed. Patient has declined pain medication since coming to the ER. Once the patient's additional labs returned including her EKG, troponin and d- dimer is unclear etiology of her symptoms at this point. I did order a respiratory panel as well as West Nile and Lyme's disease labs. I discussed the case with Dr. Smith, hospitalist on-call agrees to the admission. Patient meets for observation. Departure - Departure Time of Disposition: 16:55 Disposition: Refer to Observation Condition: Fair Clinical Impression: Hyperglycemia, Hypoglycemia, Respiratory alkalosis - Discharge Information - My Orders Last 24 Hours: My Active Orders 02/15/18 12:29 Peripheral IV Insertion Adult [OM.PC] Routine 02/15/18 12:30 Sodium Chloride 0.9% [Saline Flush] 10 ml FLUSH ASDIRECTED PRN 02/15/18 13:35 UA W/MICROSCOPIC [URIN] Stat 02/15/18 14:58 EKG 12 Lead [EK] Stat 02/15/18 17:35 RESPIRATORY PANEL BY PCR [MREF] Stat - Assessment/Plan Last 24 Hours: My Active Orders 02/15/18 12:29 Peripheral IV Insertion Adult [OM.PC] Routine 02/15/18 12:30 Sodium Chloride 0.9% [Saline Flush] 10 ml FLUSH ASDIRECTED PRN 02/15/18 13:35 UA W/MICROSCOPIC [URIN] Stat 02/15/18 14:58 EKG 12 Lead [EK] Stat 02/15/18 17:35 RESPIRATORY PANEL BY PCR [MREF] Stat
[2018-02-15] MEDS ORDERED: Ketorolac 15 MG/ML SDV IVPUSH ONE (13:39)
--- NOTE | 2018-02-15 13:51 | CR ---
Chest: Two views of the chest were obtained. Comparison: No prior chest x-ray. Heart size and mediastinum are normal. Lungs are clear. Bony structures are unremarkable. Impression: 1. Nothing acute is seen on two-view chest x-ray. Diagnostic code #1
[2018-02-15] MEDS ORDERED: Magnesium Sulfate/Water 2 GM in Premix Bag 1 BAG IV ONE (15:53)
[2018-02-15] MEDS ORDERED: LORazepam 2 MG/ML SDV IVPUSH ONE (16:02)
[2018-02-15] MEDS ORDERED: Insulin Aspart 100 Units/ML 3 ML Pen SUBCUT STA (16:04)
[2018-02-15] MEDS ORDERED: hydrALAZINE 20 MG/ML SDV IVPUSH PRN (17:35)
[2018-02-15] MEDS ORDERED: LORazepam 2 MG/ML SDV IVPUSH PRN (17:35)
[2018-02-15] MEDS ORDERED: Metoprolol Tartrate 5 MG/5 ML SDV IVPUSH PRN (17:35)
[2018-02-15] MEDS ORDERED: 50% Dextrose in Water 50 ML Syringe IVPUSH PRN (17:36)
[2018-02-15] MEDS ORDERED: Metoclopramide 10 MG/2 ML SDV IVPUSH SCH (17:45)
[2018-02-15] MEDS ORDERED: Bisacodyl 5 MG Tab PO PRN (18:12)
[2018-02-15] MEDS ORDERED: Albuterol/Ipratropium 3.0-0.5 MG/3 ML Neb Soln NEB PRN ×2 (18:12→18:14)
[2018-02-15] MEDS ORDERED: Acetaminophen 325 MG Tab PO PRN (18:12)
[2018-02-15] MEDS ORDERED: Temazepam 15 MG Cap PO PRN (18:12)
[2018-02-15] MEDS ORDERED: Docusate Sodium 100 MG Cap PO PRN (18:12)
[2018-02-15] MEDS ORDERED: Scopolamine 1.5 MG Transdermal Patch TRDERM ONE (18:18)
[2018-02-15] MEDS ORDERED: Metoclopramide 10 MG/2 ML SDV IVPUSH ONE (18:24)
[2018-02-15] MEDS ORDERED: Famotidine 20 MG/2 ML SDV IVPUSH ONE (18:27)
[2018-02-15] MEDS ORDERED: REMOVE SCOPALAMINE TRDERM SCH (18:30)
[2018-02-15] MEDS: Insulin Aspart 100 Units/ML 3 ML Pen SUBCUT SCH ×2 (18:34→23:49)
--- NOTE | 2018-02-15 18:37 | PCM.HP ---
H&P History of Present Illness - General Date of Service: 02/15/18 Admit Problem/Dx: Admission Diagnosis/Problem Admission Diagnosis/Problem Hyperglycemia Source of Information: Patient, Family, Old Records, Provider, RN Notes Reviewed History Limitations: Reports: No Limitations - History of Present Illness Initial Comments - Free Text/Narative: This is a 62 yo white female with past medical hx/o DM1 for 41 years now, Peripheral Neuropathy and Hypothyroidism who comes in with 2 weeks hx/o GI complaints of abdominal discomfort, nausea, vomiting, pyrosis and early satiety. She also reports having no appetite and as a result she had a considerable amount of weight loss. She admits to having dry cough but w/o shortness of breath. She denies having diarrhea or change in bowel habits. Patient was initially seen in ED on 01/30/2018, presented with complaints of bilateral lower back pain associated with nausea and vomiting. At that time, kidney stone was a concern but her CT scan revealed no acute abnormal finding for liver, pancreas, gall bladder or renal stones. However she was noted for increased stool throughout the entire colon and was subsequently diagnosed with constipation. According to patient, she was discharged with a colon prep/stimulant and was able to evacuate her stools w/o much trouble. Her last bowel movement was yesterday and was regular. However she is not passing much gas. Patient reports no recent trauma or surgery. Her screening colonoscopy was done this past May at [facility] with benign findings (per patient). She carries no hx/o GERD or PUD and most importantly she never had EGD in the past. Patient reports no recent travel outside the country. No unusual diet or drink and no sick contact. She could not remember her last meal but she admits to hiking with her family in [place] prior to onset of her symptoms. Her initial work up in ED shows a CBC remarkable for MCV of 78.5, MCHC of 36 and eosinophils of 0.3%. Her ABG shows a pH of 7.53, PCO2 of 22.6, PO2 of 101, HCO3 of 19, and O2 saturation of 98.6% on 21% FiO2. Her chemistry is significant for glucose of 282, calcium of 8.3, magnesium of 1.5, ALT of 13, CRP of 1.2, albumin of 2.1, and lipase of 49. Her initial troponin level and d- dimer are both wnls. Her chest x-ray shows no acute abnormal findings. Patient is being admitted for evaluation of probable diabetic gastroparesis. She is full code. Generalized Pain Score (Numeric/FACES): 8 lower abdomen Pain Score (Numeric/FACES): 2 - Related Data Allergies/Adverse Reactions: Allergies Allergy/AdvReac Type Severity Reaction Status Date / Time No Known Allergies Allergy Verified 02/15/18 12:03 Home Medications: Home Meds Acetaminophen 500 mg PO DAILY PRN 02/16/18 [History] Acetaminophen/oxyCODONE [Percocet 325-5 MG] 1 - 2 tab PO DAILY PRN 02/16/18 [ History] Aspirin [Adult Low Dose Aspirin EC] 81 mg PO DAILY 02/16/18 [History] Gabapentin [Neurontin] 1,200 mg PO BEDTIME 02/16/18 [History] Levothyroxine [Synthroid] 50 mcg PO DAILY 02/16/18 [History] Lisinopril 20 mg PO DAILY 02/16/18 [History] atorvaSTATin [Lipitor] 10 mg PO DAILY 02/16/18 [History] Past Medical History HEENT History: Reports: Impaired Vision Other HEENT History: Wears glasses Cardiovascular History: Reports: High Cholesterol, Hypertension Gastrointestinal History: Reports: None Genitourinary History: Reports: Diabetic Nephropathy Endocrine/Metabolic History: Reports: Diabetes, Type I, Hypothyroidism - Infectious Disease History Infectious Disease History: Reports: Chicken Pox - Past Surgical History HEENT Surgical History: Reports: Eye Surgery, Laser Surgery Cardiovascular Surgical History: Reports: None GI Surgical History: Reports: Colonoscopy Social & Family History - Family History Family Medical History: Noncontributory - Tobacco Use Smoking Status *Q: Unknown Ever Smoked - Caffeine Use Caffeine Use: Reports: Coffee, Soda - Recreational Drug Use Recreational Drug Use: No - Living Situation & Occupation Living situation: Reports: Occupation: Employed H&P Review of Systems - Review of Systems: Review Of Systems: See Below General: Reports: Malaise, Weakness, Fatigue, Diaphoresis, Weight Loss. Denies : Fever, Chills, Night Sweats HEENT: Reports: No Symptoms. Denies: Sore Throat Pulmonary: Reports: Shortness of Breath (episodic), Cough. Denies: Pleuritic Chest Pain Cardiovascular: Denies: Chest Pain Gastrointestinal: Reports: Constipation, Decreased Appetite, Nausea, Vomiting, Other (Abdominal discomfort, early satiety). Denies: Anorexia, Black Stool, Bloody Stool, Diarrhea, Difficulty Swallowing, Distension, Hematemesis, Mucous in Stool, Stool Incontinence Genitourinary: Reports: No Symptoms Musculoskeletal: Reports: No Symptoms Skin: Denies: Cyanosis, Jaundice, Mottled, Pallor, Diaphoresis, Dryness, Pruritis, Rash, Erythema, Change in Color, Change in Hair/Nails, Lesions, Urticaria Psychiatric: Denies: Depression, Anxiety, Agitation, Hallucinations Neurological: Reports: Weakness. Denies: Confusion, Pre-Existing Deficit, Difficulty Walking, Gait Disturbance Hematologic/Lymphatic: Reports: No Symptoms Immunologic: Reports: No Symptoms Exam - Exam Exam: See Below - Vital Signs Vital Signs: Last Vital Signs Temp 36.9 C 02/15/18 11:59 Pulse 58 L 02/15/18 11:59 Resp 18 02/15/18 11:59 BP 169/82 H 02/15/18 11:59 Pulse Ox 99 02/15/18 18:13 Weight: 90.038 kg - Exam General: Alert, Oriented, Cooperative, Mild Distress HEENT: Conjunctiva Clear, EACs Clear, EOMI, Hearing Intact, Mucosa Moist & [place] , Nares Patent, Normal Nasal Septum, Posterior Pharynx Clear, Pupils Equal, Pupils Reactive Neck: Supple, Trachea Midline Lungs: Clear to Auscultation, Normal Respiratory Effort Cardiovascular: Regular Rate, Regular Rhythm GI/Abdominal Exam: Normal Bowel Sounds, Soft, Non-Tender, No Organomegaly, No Distention, No Abnormal Bruit, No Mass (Female) Exam: Deferred Rectal (Female) Exam: Deferred Back Exam: Normal Inspection, Full Range of Motion Extremities: Normal Inspection, Normal Range of Motion, Non-Tender, No Pedal Edema, Normal Capillary Refill Peripheral Pulses: 3+: Posterior Tibial (L), Posterior Tibial (R), Dorsalis Pedis (L), Dorsalis Pedis (R) Skin: Warm, Intact. No: Rash, Petechia, Ecchymosis Neuro Extensive - Mental Status: Oriented x3, Normal Cognition, Memory Intact Neuro Extensive - Motor, Sensory, Reflexes: CN II-XII Intact, Normal Gait Psychiatric: Alert, Normal Affect, Normal Mood - Patient Data Lab Results Last 24 hrs: Laboratory Results - last 24 hr 02/15/18 02/15/18 02/15/18 Range/Units 12:48 13:09 13:09 WBC 8.79 (3.98-10.04) K/mm3 RBC 5.06 (3.98-5.22) M/mm3 Hgb 14.3 (11.2-15.7) gm/L Hct 39.7 (34.1-44.9) % MCV 78.5 L (79.4-94.8) fl MCH 28.3 (25.6-32.2) pg MCHC 36.0 H (32.2-35.5) g/dl RDW Std Deviation 37.2 (36.4-46.3) fL Plt Count 247 (182-369) K/mm3 MPV 10.3 (9.4-12.3) fl Neut % (Auto) 69.8 (34.0-71.1) % Lymph % (Auto) 23.5 (19.3-51.7) % [place] % (Auto) 6.0 (4.7-12.5) % Eos % (Auto) 0.3 L (0.7-5.8) Baso % (Auto) 0.2 (0.1-1.2) % Neut # (Auto) 6.12 (1.56-6.13) K/mm3 Lymph # (Auto) 2.07 (1.18-3.74) K/mm3 [place] # (Auto) 0.53 H (0.24-0.36) K/mm3 Eos # (Auto) 0.03 L (0.04-0.36) K/mm3 Baso # (Auto) 0.02 (0.01-0.08) K/mm3 D-Dimer, Quantitative (0.19-0.50) mg/L Puncture Site Lt radial ABG pH 7.53 H (7.35-7.45) ABG pCO2 22.6 L (35.0-45.0) mmHg ABG pO2 101.0 H (80.0-100.0) mmHg ABG HCO3 19.0 L (22.0-26.0) meq/L ABG O2 Saturation 98.6 H (96.0-97.0) % ABG Base Excess -1.6 (-2-2.0) Romario Test Positive A-a Gradient 5 mmHg FiO2 21.00 (21.00-100.00) % Sodium 136 (136-145) mEq/L Potassium 3.6 (3.5-5.1) mEq/L Chloride 103 (98-107) mEq/L Carbon Dioxide 23 (21-32) mEq/L Anion Gap 13.6 (5-15) BUN 13 (7-18) mg/dL Creatinine 0.8 (0.55-1.02) mg/dL Est Cr Clr Drug Dosing TNP Estimated GFR (MDRD) > 60 (>60) mL/min BUN/Creatinine Ratio 16.3 (14-18) Glucose 282 H (74-106) mg/dL POC Glucose (70-105) mg/dL Serum Osmolality 293 (280-300) mosm/kg Lactic Acid (0.4-2.0) mmol/L Calcium 8.3 L (8.5-10.1) mg/dL Magnesium 1.5 L (1.8-2.4) mg/dl Total Bilirubin 0.8 (0.2-1.0) mg/dL AST 16 (15-37) U/L ALT 13 L (14-59) U/L Alkaline Phosphatase 83 (46-116) U/L Troponin I (0.00-0.056) ng/mL C-Reactive Protein (<1.0) mg/dL Total Protein 7.0 (6.4-8.2) g/dl Albumin 3.1 L (3.4-5.0) g/dl Globulin 3.9 gm/dL Albumin/Globulin Ratio 0.8 L (1-2) Lipase (73-393) U/L TSH 3rd Generation (0.358-3.74) uIU/mL Urine Color (Yellow) Urine Appearance (Clear) Urine pH (5.0-8.0) Ur Specific [place] (1.005-1.030) Urine Protein (Negative) Urine Glucose (UA) (Negative) Urine Ketones (Negative) Urine Occult Blood (Negative) Urine Nitrite (Negative) Urine Bilirubin (Negative) Urine Urobilinogen (0.2-1.0) Ur Leukocyte Esterase (Negative) Urine RBC (0-5) /hpf Urine WBC (0-5) /hpf Ur Epithelial Cells (0-5) /hpf Urine Bacteria (FEW) /hpf Urine Mucus (FEW) /hpf Ketones (0.0-0.3) mM 06/22/18 06/22/18 06/22/18 Range/Units 13:09 13:09 13:09 WBC (3.98-10.04) K/mm3 RBC (3.98-5.22) M/mm3 Hgb (11.2-15.7) gm/L Hct (34.1-44.9) % MCV (79.4-94.8) fl MCH (25.6-32.2) pg MCHC (32.2-35.5) g/dl RDW Std Deviation (36.4-46.3) fL Plt Count (182-369) K/mm3 MPV (9.4-12.3) fl Neut % (Auto) (34.0-71.1) % Lymph % (Auto) (19.3-51.7) % [place] % (Auto) (4.7-12.5) % Eos % (Auto) (0.7-5.8) Baso % (Auto) (0.1-1.2) % Neut # (Auto) (1.56-6.13) K/mm3 Lymph # (Auto) (1.18-3.74) K/mm3 [place] # (Auto) (0.24-0.36) K/mm3 Eos # (Auto) (0.04-0.36) K/mm3 Baso # (Auto) (0.01-0.08) K/mm3 D-Dimer, Quantitative 0.30 (0.19-0.50) mg/L Puncture Site ABG pH (7.35-7.45) ABG pCO2 (35.0-45.0) mmHg ABG pO2 (80.0-100.0) mmHg ABG HCO3 (22.0-26.0) meq/L ABG O2 Saturation (96.0-97.0) % ABG Base Excess (-2-2.0) Romario Test A-a Gradient mmHg FiO2 (21.00-100.00) % Sodium (136-145) mEq/L Potassium (3.5-5.1) mEq/L Chloride (98-107) mEq/L Carbon Dioxide (21-32) mEq/L Anion Gap (5-15) BUN (7-18) mg/dL Creatinine (0.55-1.02) mg/dL Est Cr Clr Drug Dosing Estimated GFR (MDRD) (>60) mL/min BUN/Creatinine Ratio (14-18) Glucose (74-106) mg/dL POC Glucose (70-105) mg/dL Serum Osmolality (280-300) mosm/kg Lactic Acid (0.4-2.0) mmol/L Calcium (8.5-10.1) mg/dL Magnesium (1.8-2.4) mg/dl Total Bilirubin (0.2-1.0) mg/dL AST (15-37) U/L ALT (14-59) U/L Alkaline Phosphatase (46-116) U/L Troponin I (0.00-0.056) ng/mL C-Reactive Protein 0.9 (<1.0) mg/dL Total Protein (6.4-8.2) g/dl Albumin (3.4-5.0) g/dl Globulin gm/dL Albumin/Globulin Ratio (1-2) Lipase (73-393) U/L TSH 3rd Generation 1.915 (0.358-3.74) uIU/mL Urine Color (Yellow) Urine Appearance (Clear) Urine pH (5.0-8.0) Ur Specific [place] (1.005-1.030) Urine Protein (Negative) Urine Glucose (UA) (Negative) Urine Ketones (Negative) Urine Occult Blood (Negative) Urine Nitrite (Negative) Urine Bilirubin (Negative) Urine Urobilinogen (0.2-1.0) Ur Leukocyte Esterase (Negative) Urine RBC (0-5) /hpf Urine WBC (0-5) /hpf Ur Epithelial Cells (0-5) /hpf Urine Bacteria (FEW) /hpf Urine Mucus (FEW) /hpf Ketones 1.5 (0.0-0.3) mM 02/15/18 02/15/18 02/15/18 Range/Units 13:09 13:14 13:35 WBC (3.98-10.04) K/mm3 RBC (3.98-5.22) M/mm3 Hgb (11.2-15.7) gm/L Hct (34.1-44.9) % MCV (79.4-94.8) fl MCH (25.6-32.2) pg MCHC (32.2-35.5) g/dl RDW Std Deviation (36.4-46.3) fL Plt Count (182-369) K/mm3 MPV (9.4-12.3) fl Neut % (Auto) (34.0-71.1) % Lymph % (Auto) (19.3-51.7) % [place] % (Auto) (4.7-12.5) % Eos % (Auto) (0.7-5.8) Baso % (Auto) (0.1-1.2) % Neut # (Auto) (1.56-6.13) K/mm3 Lymph # (Auto) (1.18-3.74) K/mm3 [place] # (Auto) (0.24-0.36) K/mm3 Eos # (Auto) (0.04-0.36) K/mm3 Baso # (Auto) (0.01-0.08) K/mm3 D-Dimer, Quantitative (0.19-0.50) mg/L Puncture Site ABG pH (7.35-7.45) ABG pCO2 (35.0-45.0) mmHg ABG pO2 (80.0-100.0) mmHg ABG HCO3 (22.0-26.0) meq/L ABG O2 Saturation (96.0-97.0) % ABG Base Excess (-2-2.0) Romario Test A-a Gradient mmHg FiO2 (21.00-100.00) % Sodium (136-145) mEq/L Potassium (3.5-5.1) mEq/L Chloride (98-107) mEq/L Carbon Dioxide (21-32) mEq/L Anion Gap (5-15) BUN (7-18) mg/dL Creatinine (0.55-1.02) mg/dL Est Cr Clr Drug Dosing Estimated GFR (MDRD) (>60) mL/min BUN/Creatinine Ratio (14-18) Glucose (74-106) mg/dL POC Glucose 320 H (70-105) mg/dL Serum Osmolality (280-300) mosm/kg Lactic Acid (0.4-2.0) mmol/L Calcium (8.5-10.1) mg/dL Magnesium (1.8-2.4) mg/dl Total Bilirubin (0.2-1.0) mg/dL AST (15-37) U/L ALT (14-59) U/L Alkaline Phosphatase (46-116) U/L Troponin I < 0.017 (0.00-0.056) ng/mL C-Reactive Protein (<1.0) mg/dL Total Protein (6.4-8.2) g/dl Albumin (3.4-5.0) g/dl Globulin gm/dL Albumin/Globulin Ratio (1-2) Lipase 49 L (73-393) U/L TSH 3rd Generation (0.358-3.74) uIU/mL Urine Color Yellow (Yellow) Urine Appearance Clear (Clear) Urine pH 7.0 (5.0-8.0) Ur Specific [place] 1.015 (1.005-1.030) Urine Protein Negative (Negative) Urine Glucose (UA) 2+ H (Negative) Urine Ketones 4+ H (Negative) Urine Occult Blood Negative (Negative) Urine Nitrite Negative (Negative) Urine Bilirubin Negative (Negative) Urine Urobilinogen 1.0 (0.2-1.0) Ur Leukocyte Esterase Negative (Negative) Urine RBC 0-5 (0-5) /hpf Urine WBC 0-5 (0-5) /hpf Ur Epithelial Cells 0-5 (0-5) /hpf Urine Bacteria Few (FEW) /hpf Urine Mucus Not seen (FEW) /hpf Ketones (0.0-0.3) mM 02/15/18 02/15/18 02/15/18 Range/Units 15:18 16:00 18:15 WBC (3.98-10.04) K/mm3 RBC (3.98-5.22) M/mm3 Hgb (11.2-15.7) gm/L Hct (34.1-44.9) % MCV (79.4-94.8) fl MCH (25.6-32.2) pg MCHC (32.2-35.5) g/dl RDW Std Deviation (36.4-46.3) fL Plt Count (182-369) K/mm3 MPV (9.4-12.3) fl Neut % (Auto) (34.0-71.1) % Lymph % (Auto) (19.3-51.7) % [place] % (Auto) (4.7-12.5) % Eos % (Auto) (0.7-5.8) Baso % (Auto) (0.1-1.2) % Neut # (Auto) (1.56-6.13) K/mm3 Lymph # (Auto) (1.18-3.74) K/mm3 [place] # (Auto) (0.24-0.36) K/mm3 Eos # (Auto) (0.04-0.36) K/mm3 Baso # (Auto) (0.01-0.08) K/mm3 D-Dimer, Quantitative (0.19-0.50) mg/L Puncture Site ABG pH (7.35-7.45) ABG pCO2 (35.0-45.0) mmHg ABG pO2 (80.0-100.0) mmHg ABG HCO3 (22.0-26.0) meq/L ABG O2 Saturation (96.0-97.0) % ABG Base Excess (-2-2.0) Romario Test A-a Gradient mmHg FiO2 (21.00-100.00) % Sodium (136-145) mEq/L Potassium (3.5-5.1) mEq/L Chloride (98-107) mEq/L Carbon Dioxide (21-32) mEq/L Anion Gap (5-15) BUN (7-18) mg/dL Creatinine (0.55-1.02) mg/dL Est Cr Clr Drug Dosing Estimated GFR (MDRD) (>60) mL/min BUN/Creatinine Ratio (14-18) Glucose (74-106) mg/dL POC Glucose 243 H 204 H (70-105) mg/dL Serum Osmolality (280-300) mosm/kg Lactic Acid 1.4 (0.4-2.0) mmol/L Calcium (8.5-10.1) mg/dL Magnesium (1.8-2.4) mg/dl Total Bilirubin (0.2-1.0) mg/dL AST (15-37) U/L ALT (14-59) U/L Alkaline Phosphatase (46-116) U/L Troponin I (0.00-0.056) ng/mL C-Reactive Protein (<1.0) mg/dL Total Protein (6.4-8.2) g/dl Albumin (3.4-5.0) g/dl Globulin gm/dL Albumin/Globulin Ratio (1-2) Lipase (73-393) U/L TSH 3rd Generation (0.358-3.74) uIU/mL Urine Color (Yellow) Urine Appearance (Clear) Urine pH (5.0-8.0) Ur Specific [place] (1.005-1.030) Urine Protein (Negative) Urine Glucose (UA) (Negative) Urine Ketones (Negative) Urine Occult Blood (Negative) Urine Nitrite (Negative) Urine Bilirubin (Negative) Urine Urobilinogen (0.2-1.0) Ur Leukocyte Esterase (Negative) Urine RBC (0-5) /hpf Urine WBC (0-5) /hpf Ur Epithelial Cells (0-5) /hpf Urine Bacteria (FEW) /hpf Urine Mucus (FEW) /hpf Ketones (0.0-0.3) mM Result Diagrams: 02/16/18 05:30 02/16/18 11:55 EKG INTERPRETATION EKG Date: 02/15/18 Time: 03:40 Rhythm: NSR Rate (Beats/Min): 63 [place]: LAD-Left [place] Deviation P-Wave: Present QRS: Normal ST-T: Normal QT: Normal ME/PQ Interval: prolonged Comparison: NA - No Prior EKG EKG Interpretation Comments: Q wave in lead III, aVF, and V1-V3 Problem List Initiated/Reviewed/Updated: Yes Orders Last 24hrs: Active Orders 24 hr Category Date Time Status Patient Status [ADT] Routine ADT 02/15/18 17:10 Active Blood Glucose Check, Bedside [RC] Q6H Care 02/15/18 17:36 Active Height and Weight [RC] DAILY Care 02/15/18 18:12 Ordered Intake and Output [RC] QSHIFT Care 02/15/18 18:13 Ordered Oxygen Therapy [RC] PRN Care 02/15/18 18:13 Ordered RT Aerosol Therapy [RC] ASDIRECTED Care 02/15/18 18:14 Ordered Up ad [place] [RC] ASDIRECTED Care 02/15/18 18:12 Ordered VTE/DVT Education [RC] PER UNIT ROUTINE Care 02/15/18 18:13 Ordered Vital Signs [RC] Q4H Care 02/15/18 18:13 Ordered Nothing per Oral Now Diet [DIET] Diet 02/15/18 Dinner Ordered Gastric Empty Study [NM] Routine Exams 02/16/18 07:00 Ordered A1C [GLYCOSYLATED HEMOGLOBIN,HGBA1C] [CHEM] Stat Lab 02/15/18 13:09 Received BASIC METABOLIC PANEL,BMP [CHEM] AM Lab 02/16/18 05:11 Ordered BASIC METABOLIC PANEL,BMP [CHEM] AM Lab 02/17/18 05:11 Ordered C-REACTIVE PROTEIN [CHEM] AM Lab 02/16/18 05:11 Ordered C-REACTIVE PROTEIN [CHEM] Stat Lab 02/15/18 18:14 Ordered CBC WITH AUTO DIFF [HEME] AM Lab 02/16/18 05:11 Ordered CBC WITH AUTO DIFF [HEME] AM Lab 02/17/18 05:11 Ordered RESPIRATORY PANEL BY PCR [MREF] Stat Lab 02/15/18 17:35 Ordered UA W/MICROSCOPIC [URIN] Stat Lab 02/15/18 13:35 Ordered Acetaminophen [Tylenol] Med 02/15/18 18:12 Ordered 650 mg PO Q4H PRN Albuterol/Ipratropium [DuoNeb 3.0-0.5 MG/3 ML] Med 02/15/18 18:12 Ordered 3 ml NEB Q4H PRN Bisacodyl [Dulcolax] Med 02/15/18 18:12 Ordered 5 mg PO DAILY PRN Dextrose 50% in Water Med 02/15/18 17:36 Active 50 ml IVPUSH ASDIRECTED PRN Docusate Sodium [Colace] Med 02/15/18 18:12 Ordered 100 mg PO BID PRN Docusate Sodium/Sennosides [Senna Plus] Med 02/15/18 18:12 Ordered 1 tab PO BID PRN Erythromycin Lactobionate 250 mg Med 02/15/18 18:30 Ordered Sodium Chloride 0.9% [Normal Saline] 100 ml IV Q6H Famotidine [Pepcid] Med 02/16/18 09:00 Ordered 20 mg IVPUSH BID Insulin Aspart [NovoLOG] Med 02/15/18 17:45 Active See Protocol SUBCUT Q6H LORazepam [Ativan] Med 02/15/18 17:35 Active 2 mg IVPUSH Q4H PRN Magnesium Rep Pharmacy to Dose [Pharmacy to Dose - Med 02/15/18 17:45 Pending Magnesium Replacement] 1 dose .XX ASDIRECTED Metoclopramide [Reglan] Med 02/16/18 07:00 Ordered 10 mg IVPUSH Q6H Metoclopramide [Reglan] Med 02/17/18 07:00 Active 10 mg PO ACBED Metoprolol Tartrate [Lopressor] Med 02/15/18 17:35 Active 5 mg IVPUSH Q4H PRN Potassium Rep Pharmacy to Dose [Pharmacy to Dose - Med 02/15/18 17:45 Pending Potassium Replacement] 1 dose .XX ASDIRECTED Remove Patch Med 02/15/18 18:30 Active 1 ea TRDERM Q72H Sodium Chloride 0.9% @ 100 MLS/HR(1000ml Bag) Med 02/15/18 18:30 Ordered Sodium Chloride 0.9% [Normal Saline] 1,000 ml IV ASDIRECTED Sodium Chloride 0.9% [Saline Flush] Med 02/15/18 12:30 Active 10 ml FLUSH ASDIRECTED PRN Temazepam [Restoril] Med 02/15/18 18:12 Ordered 15 mg PO BEDTIME PRN hydrALAZINE [Apresoline] Med 02/15/18 17:35 Active 20 mg IVPUSH Q4H PRN Peripheral IV Insertion Adult [OM.PC] Routine Oth 02/15/18 12:29 Ordered Resuscitation Status Routine Resus Stat 02/15/18 18:12 Ordered EKG 12 Lead [EK] Stat Ther 02/15/18 14:58 Ordered Medication Orders Acetaminophen (Tylenol) 650 mg PO Q4H PRN PRN Reason: Pain (Mild 1-3)/fever Albuterol/Ipratropium (Duoneb 3.0-0.5 Mg/3 Ml) 3 ml NEB Q4H PRN PRN Reason: Shortness Of Breath/wheezing Bisacodyl (Dulcolax) 5 mg PO DAILY PRN PRN Reason: Constipation Dextrose/Water (Dextrose 50% In Water) 50 ml IVPUSH ASDIRECTED PRN PRN Reason: Hypoglycemia Docusate Sodium (Colace) 100 mg PO BID PRN PRN Reason: Constipation Famotidine (Pepcid) 20 mg IVPUSH BID WILLIAM Hydralazine HCl (Apresoline) 20 mg IVPUSH Q4H PRN PRN Reason: Hypertension Sodium Chloride (Normal Saline) 1,000 mls @ 100 mls/hr IV ASDIRECTED WILLIAM Erythromycin Lactobionate 250 (mg/ Sodium Chloride) 100 mls @ 100 mls/hr IV Q6H [facility] Stop: 02/16/18 13:29 Insulin Aspart (Novolog) 0 unit SUBCUT Q6H [facility]; Protocol Lorazepam (Ativan) 2 mg IVPUSH Q4H PRN PRN Reason: Seizures Magnesium Sulfate (Pharmacy To Dose - Magnesium Replacement) 1 dose .XX ASDIRECTED [facility] Metoclopramide HCl (Reglan) 10 mg IVPUSH Q6H [facility] Stop: 02/16/18 19:01 Metoclopramide HCl (Reglan) 10 mg PO ACBED [facility] Metoprolol Tartrate (Lopressor) 5 mg IVPUSH Q4H PRN PRN Reason: Tachycardia Miscellaneous Information (Remove Patch) 1 ea TRDERM Q72H [facility] Stop: 02/18/18 18:31 Potassium Chloride (Pharmacy To Dose - Potassium Replacement) 1 dose .XX ASDIRECTED [facility] Senna/Docusate Sodium (Senna Plus) 1 tab PO BID PRN PRN Reason: Constipation Sodium Chloride (Saline Flush) 10 ml FLUSH ASDIRECTED PRN PRN Reason: Keep Vein Open Last Admin: 02/15/18 13:05 Dose: 10 ml Temazepam (Restoril) 15 mg PO BEDTIME PRN PRN Reason: Sleep Assessment/Plan Comment:: Assessment/Plan: Acute: 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 - Meets criteria: Abdominal Discomfort, nausea, vomiting and early satiety; + /- pyrosis - Risk Factor: 42 year hx/o Type 1 DM with Peripheral Neuropathy both on SA/ LA Insulin - 2 weeks on going symptoms w/o diarrhea - Last A1C was 7.3-this past Sunday when she saw her PCP for follow up - Initially seen in ED and was diagnosed with constipation - She was given bowel cleansing prep/agent but worsened her symptoms - She reports no recent travel outside the country, no unusual diet or drink and no change in her bowel habits - She did however went hiking around the period in [place] but denies being bitten by anything - She denies any fever, rigors, and chills. No skin rash or signs of localized infections since onset of symptoms--> rule out infections in etiology - Afebrile, w/o leukocytosis and with minimal CRP level of 1.2; UA is negative for UTI and CXR shows no acute abnormal findings - DDx: PUD, GERD and Gastric Dysmotility other than Gastroparesis - Medical management at this point with prokinetic agents (Reglan and Erythromycin); NPO status except ice chips, sips of water and oral medications; IV Hydration; H2B; Electrolytes replacements and most importantly good glucose control - Will monitor for QT changes and make adjustment to regimen as needed - She needs gastric emptying study and EGD to confirm above diagnosis--most likely be done outpatient since we are going into the weekends - Informed benefits and side effects associated with both prokinetic agents before patient was administered with those drugs DM 1 with Hyperglycemia - Long standing hx/o DM1 ~ 41 years - Most recent A1C was 7.3 this past Sunday according to her and 3 months before that she was 6.7; re-check A1C - She normally runs bet 120s-150s on average with her glucose - She is on ISS with Novolog TID and 21 units of Trujeo QHS for insulin regimen - BS on initial lab 282 and her FSBS is 320 - Accu-check Q6 with ISS; will hold LA insulin for now - Resume Home dose of ASA, Statin and ACEI - NPO status as above Hypomagnesemia - Mg 1.5--> repeat lab later tonight - 2/2 GI Loss - Replete and monitor Hypocalcemia - Ca 8.3 - 2/2 GI loss and inadequate intake - Repeat lab later tonight Borderline QTc Prolongation/Acquired Long QTc Syndrome - Corrected QTc is 462 - Suspect 2/2 Hypomagnesemia and Hypocalcemia - Risk factors: Female, Longstanding hx/o DM1 (Has peripheral neuropathy on gabapentin), and Hypothyroidism - Currently asymptomatic but admits to having palpitations and dizziness with the 2 weeks onset of symptoms. No syncopal episode or chest pain - No family hx/o Congenital Long QT syndrome - She is not on any murtaza blocking agents, diuretics, anticholinergics, cimetadine or estrogen - Will monitor patient closely since she will be getting erythromycin and reglan - Replete electrolytes and consider serial EKG; she will be on telemetry Chronic: Impaired Vision Acquired Hypothyroidism, TSH normal Diabetic Neuropathy on Gabapentin Plan: Admit to the floor w/ Telemetry Patient did not bring in her home meds but will hold her LA insulin if family brings them in Routine AM Labs Lipid Panel and CE in AM Medical Management as noted above PRN meds for symptomatic control May benefit with Dietary and Diabetic Education but services are not available this weekend Additional orders as above Code status:1
[2018-02-15] MEDS: Sodium Chloride 0.9% 1,000 ML IV SCH (18:39)
--- NOTE | 2018-02-15 20:30 | PCM.SN ---
- Free Text/Narrative Note: ICU nurse called to inform me that patient's QT is prolonged on Telemetry. Patient however is comfortably resting in bed. Her most recent vitals shows a slightly low HR of 58 with a BP of 169/82 mmHg. Her repeat EKG shows a QTc that is much lower at 437 from 462 earlier EKG taken in ED. Her corrected QTc QTc is 437 (normal). Patient is not on any murtaza blocking agents, diuretics, anticholinergics, cimetadine or estrogen. However she carries a hx/o longstanding DM1 (41 years) with Peripheral Neuropathy. Patient had already received one time dose of 250 IV erythromycin and 10 mg IVP of Reglan. Will discontinue erythromycin and cut down her Reglan dose to 5 mg IV Q6H x 3 doses then switch to oral dose. We will also get routine EKG prior to administration of Reglan. If QTc is < or equal to 450; patient should be okay to receive Reglan (relayed to mark Thomas-CN). Advised ICU nurse to order labs if patient continues to have QT changes on Telemetry.
[2018-02-15] MEDS ORDERED: Potassium Chloride 20 MEQ Tab.ER PO ONE (23:59)
[2018-02-16] MEDS: Magnesium Sulfate/Water 2 GM in Premix Bag 1 BAG IV SCH ×2 (00:03→05:01)
[2018-02-16] MEDS: Sodium Chloride 0.9% 1,000 ML IV SCH ×3 (04:51→23:23)
[2018-02-16] MEDS: Insulin Aspart 100 Units/ML 3 ML Pen SUBCUT SCH ×4 (06:53→21:00)
[2018-02-16] MEDS ORDERED: Metoclopramide 10 MG/2 ML SDV IVPUSH SCH (07:00)
[2018-02-16] MEDS: Metoclopramide 10 MG/2 ML SDV IVPUSH SCH ×3 (07:08→17:41)
--- NOTE | 2018-02-16 07:11 | PCM.PN ---
- General Info Date of Service: 02/16/18 Admission Dx/Problem (Free Text): Admission Diagnosis/Problem Admission Diagnosis/Problem Hyperglycemia Subjective Update: Follow Up Functional Status: Reports: Pain Controlled, Ambulating, Urinating - Review of Systems General: Denies: Fever, Weakness, Fatigue, Malaise, Chills HEENT: Reports: No Symptoms Pulmonary: Denies: Shortness of Breath Cardiovascular: Denies: Chest Pain, Palpitations, Dyspnea on Exertion, Edema, Lightheadedness Gastrointestinal: Reports: Flatus. Denies: Abdominal Pain, Constipation, Decreased Appetite, Diarrhea, Difficulty Swallowing, Nausea, Vomiting Genitourinary: Reports: No Symptoms Musculoskeletal: Reports: No Symptoms Skin: Denies: Cyanosis, Mottled, Pallor, Diaphoresis, Pruritis, Rash Neurological: Denies: Confusion, Difficulty Walking, Weakness, Gait Disturbance Psychiatric: Denies: Depression, Anxiety, Agitation, Hallucinations Systems Review Comment:: No overnight or acute issues. She slept really well last night and feels pretty good this morning. Her morning labs are fairly unremarkable. She has no complaints. - Patient Data Vitals - Most Recent: Last Vital Signs Temp 36.9 C 02/16/18 00:07 Pulse 96 02/16/18 00:07 Resp 16 02/16/18 00:07 BP 150/69 H 02/16/18 00:07 Pulse Ox 96 02/16/18 00:07 Weight - Most Recent: 90.038 kg I&O - Last 24 Hours: Intake & Output 02/15/18 02/16/18 02/16/18 22:59 06:59 14:59 Intake Total 1122 Balance 1122 Lab Results Last 24 Hours: Laboratory Results - last 24 hr 02/15/18 02/15/18 02/15/18 Range/Units 12:48 13:09 13:09 WBC 8.79 (3.98-10.04) K/mm3 RBC 5.06 (3.98-5.22) M/mm3 Hgb 14.3 (11.2-15.7) gm/L Hct 39.7 (34.1-44.9) % MCV 78.5 L (79.4-94.8) fl MCH 28.3 (25.6-32.2) pg MCHC 36.0 H (32.2-35.5) g/dl RDW Std Deviation 37.2 (36.4-46.3) fL Plt Count 247 (182-369) K/mm3 MPV 10.3 (9.4-12.3) fl Neut % (Auto) 69.8 (34.0-71.1) % Lymph % (Auto) 23.5 (19.3-51.7) % [place] % (Auto) 6.0 (4.7-12.5) % Eos % (Auto) 0.3 L (0.7-5.8) Baso % (Auto) 0.2 (0.1-1.2) % Neut # (Auto) 6.12 (1.56-6.13) K/mm3 Lymph # (Auto) 2.07 (1.18-3.74) K/mm3 [place] # (Auto) 0.53 H (0.24-0.36) K/mm3 Eos # (Auto) 0.03 L (0.04-0.36) K/mm3 Baso # (Auto) 0.02 (0.01-0.08) K/mm3 D-Dimer, Quantitative (0.19-0.50) mg/L Puncture Site Lt radial ABG pH 7.53 H (7.35-7.45) ABG pCO2 22.6 L (35.0-45.0) mmHg ABG pO2 101.0 H (80.0-100.0) mmHg ABG HCO3 19.0 L (22.0-26.0) meq/L ABG O2 Saturation 98.6 H (96.0-97.0) % ABG Base Excess -1.6 (-2-2.0) Romario Test Positive A-a Gradient 5 mmHg FiO2 21.00 (21.00-100.00) % Sodium 136 (136-145) mEq/L Potassium 3.6 (3.5-5.1) mEq/L Chloride 103 (98-107) mEq/L Carbon Dioxide 23 (21-32) mEq/L Anion Gap 13.6 (5-15) BUN 13 (7-18) mg/dL Creatinine 0.8 (0.55-1.02) mg/dL Est Cr Clr Drug Dosing TNP Estimated GFR (MDRD) > 60 (>60) mL/min BUN/Creatinine Ratio 16.3 (14-18) Glucose 282 H (74-106) mg/dL POC Glucose (70-105) mg/dL Hemoglobin A1c (4.50-6.20) % Serum Osmolality 293 (280-300) mosm/kg Lactic Acid (0.4-2.0) mmol/L Calcium 8.3 L (8.5-10.1) mg/dL Magnesium 1.5 L (1.8-2.4) mg/dl Total Bilirubin 0.8 (0.2-1.0) mg/dL AST 16 (15-37) U/L ALT 13 L (14-59) U/L Alkaline Phosphatase 83 (46-116) U/L Troponin I (0.00-0.056) ng/mL C-Reactive Protein (<1.0) mg/dL Total Protein 7.0 (6.4-8.2) g/dl Albumin 3.1 L (3.4-5.0) g/dl Globulin 3.9 gm/dL Albumin/Globulin Ratio 0.8 L (1-2) Lipase (73-393) U/L TSH 3rd Generation (0.358-3.74) uIU/mL Urine Color (Yellow) Urine Appearance (Clear) Urine pH (5.0-8.0) Ur Specific [place] (1.005-1.030) Urine Protein (Negative) Urine Glucose (UA) (Negative) Urine Ketones (Negative) Urine Occult Blood (Negative) Urine Nitrite (Negative) Urine Bilirubin (Negative) Urine Urobilinogen (0.2-1.0) Ur Leukocyte Esterase (Negative) Urine RBC (0-5) /hpf Urine WBC (0-5) /hpf Ur Epithelial Cells (0-5) /hpf Urine Bacteria (FEW) /hpf Urine Mucus (FEW) /hpf Ketones (0.0-0.3) mM 02/15/18 02/15/18 02/15/18 Range/Units 13:09 13:09 13:09 WBC (3.98-10.04) K/mm3 RBC (3.98-5.22) M/mm3 Hgb (11.2-15.7) gm/L Hct (34.1-44.9) % MCV (79.4-94.8) fl MCH (25.6-32.2) pg MCHC (32.2-35.5) g/dl RDW Std Deviation (36.4-46.3) fL Plt Count (182-369) K/mm3 MPV (9.4-12.3) fl Neut % (Auto) (34.0-71.1) % Lymph % (Auto) (19.3-51.7) % [place] % (Auto) (4.7-12.5) % Eos % (Auto) (0.7-5.8) Baso % (Auto) (0.1-1.2) % Neut # (Auto) (1.56-6.13) K/mm3 Lymph # (Auto) (1.18-3.74) K/mm3 [place] # (Auto) (0.24-0.36) K/mm3 Eos # (Auto) (0.04-0.36) K/mm3 Baso # (Auto) (0.01-0.08) K/mm3 D-Dimer, Quantitative 0.30 (0.19-0.50) mg/L Puncture Site ABG pH (7.35-7.45) ABG pCO2 (35.0-45.0) mmHg ABG pO2 (80.0-100.0) mmHg ABG HCO3 (22.0-26.0) meq/L ABG O2 Saturation (96.0-97.0) % ABG Base Excess (-2-2.0) Romario Test A-a Gradient mmHg FiO2 (21.00-100.00) % Sodium (136-145) mEq/L Potassium (3.5-5.1) mEq/L Chloride (98-107) mEq/L Carbon Dioxide (21-32) mEq/L Anion Gap (5-15) BUN (7-18) mg/dL Creatinine (0.55-1.02) mg/dL Est Cr Clr Drug Dosing Estimated GFR (MDRD) (>60) mL/min BUN/Creatinine Ratio (14-18) Glucose (74-106) mg/dL POC Glucose (70-105) mg/dL Hemoglobin A1c (4.50-6.20) % Serum Osmolality (280-300) mosm/kg Lactic Acid (0.4-2.0) mmol/L Calcium (8.5-10.1) mg/dL Magnesium (1.8-2.4) mg/dl Total Bilirubin (0.2-1.0) mg/dL AST (15-37) U/L ALT (14-59) U/L Alkaline Phosphatase (46-116) U/L Troponin I (0.00-0.056) ng/mL C-Reactive Protein 0.9 (<1.0) mg/dL Total Protein (6.4-8.2) g/dl Albumin (3.4-5.0) g/dl Globulin gm/dL Albumin/Globulin Ratio (1-2) Lipase (73-393) U/L TSH 3rd Generation 1.915 (0.358-3.74) uIU/mL Urine Color (Yellow) Urine Appearance (Clear) Urine pH (5.0-8.0) Ur Specific [place] (1.005-1.030) Urine Protein (Negative) Urine Glucose (UA) (Negative) Urine Ketones (Negative) Urine Occult Blood (Negative) Urine Nitrite (Negative) Urine Bilirubin (Negative) Urine Urobilinogen (0.2-1.0) Ur Leukocyte Esterase (Negative) Urine RBC (0-5) /hpf Urine WBC (0-5) /hpf Ur Epithelial Cells (0-5) /hpf Urine Bacteria (FEW) /hpf Urine Mucus (FEW) /hpf Ketones 1.5 (0.0-0.3) mM 02/15/18 02/15/18 02/15/18 Range/Units 13:09 13:09 13:09 WBC (3.98-10.04) K/mm3 RBC (3.98-5.22) M/mm3 Hgb (11.2-15.7) gm/L Hct (34.1-44.9) % MCV (79.4-94.8) fl MCH (25.6-32.2) pg MCHC (32.2-35.5) g/dl RDW Std Deviation (36.4-46.3) fL Plt Count (182-369) K/mm3 MPV (9.4-12.3) fl Neut % (Auto) (34.0-71.1) % Lymph % (Auto) (19.3-51.7) % [place] % (Auto) (4.7-12.5) % Eos % (Auto) (0.7-5.8) Baso % (Auto) (0.1-1.2) % Neut # (Auto) (1.56-6.13) K/mm3 Lymph # (Auto) (1.18-3.74) K/mm3 [place] # (Auto) (0.24-0.36) K/mm3 Eos # (Auto) (0.04-0.36) K/mm3 Baso # (Auto) (0.01-0.08) K/mm3 D-Dimer, Quantitative (0.19-0.50) mg/L Puncture Site ABG pH (7.35-7.45) ABG pCO2 (35.0-45.0) mmHg ABG pO2 (80.0-100.0) mmHg ABG HCO3 (22.0-26.0) meq/L ABG O2 Saturation (96.0-97.0) % ABG Base Excess (-2-2.0) Romario Test A-a Gradient mmHg FiO2 (21.00-100.00) % Sodium (136-145) mEq/L Potassium (3.5-5.1) mEq/L Chloride (98-107) mEq/L Carbon Dioxide (21-32) mEq/L Anion Gap (5-15) BUN (7-18) mg/dL Creatinine (0.55-1.02) mg/dL Est Cr Clr Drug Dosing Estimated GFR (MDRD) (>60) mL/min BUN/Creatinine Ratio (14-18) Glucose (74-106) mg/dL POC Glucose (70-105) mg/dL Hemoglobin A1c 7.20 H (4.50-6.20) % Serum Osmolality (280-300) mosm/kg Lactic Acid (0.4-2.0) mmol/L Calcium (8.5-10.1) mg/dL Magnesium (1.8-2.4) mg/dl Total Bilirubin (0.2-1.0) mg/dL AST (15-37) U/L ALT (14-59) U/L Alkaline Phosphatase (46-116) U/L Troponin I < 0.017 (0.00-0.056) ng/mL C-Reactive Protein 1.2 H* (<1.0) mg/dL Total Protein (6.4-8.2) g/dl Albumin (3.4-5.0) g/dl Globulin gm/dL Albumin/Globulin Ratio (1-2) Lipase 49 L (73-393) U/L TSH 3rd Generation (0.358-3.74) uIU/mL Urine Color (Yellow) Urine Appearance (Clear) Urine pH (5.0-8.0) Ur Specific [place] (1.005-1.030) Urine Protein (Negative) Urine Glucose (UA) (Negative) Urine Ketones (Negative) Urine Occult Blood (Negative) Urine Nitrite (Negative) Urine Bilirubin (Negative) Urine Urobilinogen (0.2-1.0) Ur Leukocyte Esterase (Negative) Urine RBC (0-5) /hpf Urine WBC (0-5) /hpf Ur Epithelial Cells (0-5) /hpf Urine Bacteria (FEW) /hpf Urine Mucus (FEW) /hpf Ketones (0.0-0.3) mM 02/15/18 02/15/18 02/15/18 Range/Units 13:14 13:35 15:18 WBC (3.98-10.04) K/mm3 RBC (3.98-5.22) M/mm3 Hgb (11.2-15.7) gm/L Hct (34.1-44.9) % MCV (79.4-94.8) fl MCH (25.6-32.2) pg MCHC (32.2-35.5) g/dl RDW Std Deviation (36.4-46.3) fL Plt Count (182-369) K/mm3 MPV (9.4-12.3) fl Neut % (Auto) (34.0-71.1) % Lymph % (Auto) (19.3-51.7) % [place] % (Auto) (4.7-12.5) % Eos % (Auto) (0.7-5.8) Baso % (Auto) (0.1-1.2) % Neut # (Auto) (1.56-6.13) K/mm3 Lymph # (Auto) (1.18-3.74) K/mm3 [place] # (Auto) (0.24-0.36) K/mm3 Eos # (Auto) (0.04-0.36) K/mm3 Baso # (Auto) (0.01-0.08) K/mm3 D-Dimer, Quantitative (0.19-0.50) mg/L Puncture Site ABG pH (7.35-7.45) ABG pCO2 (35.0-45.0) mmHg ABG pO2 (80.0-100.0) mmHg ABG HCO3 (22.0-26.0) meq/L ABG O2 Saturation (96.0-97.0) % ABG Base Excess (-2-2.0) Romario Test A-a Gradient mmHg FiO2 (21.00-100.00) % Sodium (136-145) mEq/L Potassium (3.5-5.1) mEq/L Chloride (98-107) mEq/L Carbon Dioxide (21-32) mEq/L Anion Gap (5-15) BUN (7-18) mg/dL Creatinine (0.55-1.02) mg/dL Est Cr Clr Drug Dosing Estimated GFR (MDRD) (>60) mL/min BUN/Creatinine Ratio (14-18) Glucose (74-106) mg/dL POC Glucose 320 H (70-105) mg/dL Hemoglobin A1c (4.50-6.20) % Serum Osmolality (280-300) mosm/kg Lactic Acid 1.4 (0.4-2.0) mmol/L Calcium (8.5-10.1) mg/dL Magnesium (1.8-2.4) mg/dl Total Bilirubin (0.2-1.0) mg/dL AST (15-37) U/L ALT (14-59) U/L Alkaline Phosphatase (46-116) U/L Troponin I (0.00-0.056) ng/mL C-Reactive Protein (<1.0) mg/dL Total Protein (6.4-8.2) g/dl Albumin (3.4-5.0) g/dl Globulin gm/dL Albumin/Globulin Ratio (1-2) Lipase (73-393) U/L TSH 3rd Generation (0.358-3.74) uIU/mL Urine Color Yellow (Yellow) Urine Appearance Clear (Clear) Urine pH 7.0 (5.0-8.0) Ur Specific [place] 1.015 (1.005-1.030) Urine Protein Negative (Negative) Urine Glucose (UA) 2+ H (Negative) Urine Ketones 4+ H (Negative) Urine Occult Blood Negative (Negative) Urine Nitrite Negative (Negative) Urine Bilirubin Negative (Negative) Urine Urobilinogen 1.0 (0.2-1.0) Ur Leukocyte Esterase Negative (Negative) Urine RBC 0-5 (0-5) /hpf Urine WBC 0-5 (0-5) /hpf Ur Epithelial Cells 0-5 (0-5) /hpf Urine Bacteria Few (FEW) /hpf Urine Mucus Not seen (FEW) /hpf Ketones (0.0-0.3) mM 02/15/18 02/15/18 02/15/18 Range/Units 16:00 18:15 22:05 WBC (3.98-10.04) K/mm3 RBC (3.98-5.22) M/mm3 Hgb (11.2-15.7) gm/L Hct (34.1-44.9) % MCV (79.4-94.8) fl MCH (25.6-32.2) pg MCHC (32.2-35.5) g/dl RDW Std Deviation (36.4-46.3) fL Plt Count (182-369) K/mm3 MPV (9.4-12.3) fl Neut % (Auto) (34.0-71.1) % Lymph % (Auto) (19.3-51.7) % [place] % (Auto) (4.7-12.5) % Eos % (Auto) (0.7-5.8) Baso % (Auto) (0.1-1.2) % Neut # (Auto) (1.56-6.13) K/mm3 Lymph # (Auto) (1.18-3.74) K/mm3 [place] # (Auto) (0.24-0.36) K/mm3 Eos # (Auto) (0.04-0.36) K/mm3 Baso # (Auto) (0.01-0.08) K/mm3 D-Dimer, Quantitative (0.19-0.50) mg/L Puncture Site ABG pH (7.35-7.45) ABG pCO2 (35.0-45.0) mmHg ABG pO2 (80.0-100.0) mmHg ABG HCO3 (22.0-26.0) meq/L ABG O2 Saturation (96.0-97.0) % ABG Base Excess (-2-2.0) Rmoario Test A-a Gradient mmHg FiO2 (21.00-100.00) % Sodium 140 (136-145) mEq/L Potassium 3.1 L (3.5-5.1) mEq/L Chloride 106 (98-107) mEq/L Carbon Dioxide 25 (21-32) mEq/L Anion Gap 12.1 (5-15) BUN 11 (7-18) mg/dL Creatinine 0.7 (0.55-1.02) mg/dL Est Cr Clr Drug Dosing 85.56 Estimated GFR (MDRD) > 60 (>60) mL/min BUN/Creatinine Ratio 15.7 (14-18) Glucose 113 H (74-106) mg/dL POC Glucose 243 H 204 H (70-105) mg/dL Hemoglobin A1c (4.50-6.20) % Serum Osmolality (280-300) mosm/kg Lactic Acid (0.4-2.0) mmol/L Calcium 7.7 L (8.5-10.1) mg/dL Magnesium 1.8 (1.8-2.4) mg/dl Total Bilirubin (0.2-1.0) mg/dL AST (15-37) U/L ALT (14-59) U/L Alkaline Phosphatase (46-116) U/L Troponin I (0.00-0.056) ng/mL C-Reactive Protein (<1.0) mg/dL Total Protein (6.4-8.2) g/dl Albumin (3.4-5.0) g/dl Globulin gm/dL Albumin/Globulin Ratio (1-2) Lipase (73-393) U/L TSH 3rd Generation (0.358-3.74) uIU/mL Urine Color (Yellow) Urine Appearance (Clear) Urine pH (5.0-8.0) Ur Specific [place] (1.005-1.030) Urine Protein (Negative) Urine Glucose (UA) (Negative) Urine Ketones (Negative) Urine Occult Blood (Negative) Urine Nitrite (Negative) Urine Bilirubin (Negative) Urine Urobilinogen (0.2-1.0) Ur Leukocyte Esterase (Negative) Urine RBC (0-5) /hpf Urine WBC (0-5) /hpf Ur Epithelial Cells (0-5) /hpf Urine Bacteria (FEW) /hpf Urine Mucus (FEW) /hpf Ketones (0.0-0.3) mM 02/15/18 02/16/18 Range/Units 23:46 05:30 WBC 7.05 (3.98-10.04) K/mm3 RBC 4.61 (3.98-5.22) M/mm3 Hgb 13.1 (11.2-15.7) gm/L Hct 37.0 (34.1-44.9) % MCV 80.3 (79.4-94.8) fl MCH 28.4 (25.6-32.2) pg MCHC 35.4 (32.2-35.5) g/dl RDW Std Deviation 37.7 (36.4-46.3) fL Plt Count 252 (182-369) K/mm3 MPV 10.3 (9.4-12.3) fl Neut % (Auto) 54.9 (34.0-71.1) % Lymph % (Auto) 34.9 (19.3-51.7) % [place] % (Auto) 8.9 (4.7-12.5) % Eos % (Auto) 0.9 (0.7-5.8) Baso % (Auto) 0.3 (0.1-1.2) % Neut # (Auto) 3.87 (1.56-6.13) K/mm3 Lymph # (Auto) 2.46 (1.18-3.74) K/mm3 [place] # (Auto) 0.63 H (0.24-0.36) K/mm3 Eos # (Auto) 0.06 (0.04-0.36) K/mm3 Baso # (Auto) 0.02 (0.01-0.08) K/mm3 D-Dimer, Quantitative (0.19-0.50) mg/L Puncture Site ABG pH (7.35-7.45) ABG pCO2 (35.0-45.0) mmHg ABG pO2 (80.0-100.0) mmHg ABG HCO3 (22.0-26.0) meq/L ABG O2 Saturation (96.0-97.0) % ABG Base Excess (-2-2.0) Romario Test A-a Gradient mmHg FiO2 (21.00-100.00) % Sodium (136-145) mEq/L Potassium (3.5-5.1) mEq/L Chloride (98-107) mEq/L Carbon Dioxide (21-32) mEq/L Anion Gap (5-15) BUN (7-18) mg/dL Creatinine (0.55-1.02) mg/dL Est Cr Clr Drug Dosing Estimated GFR (MDRD) (>60) mL/min BUN/Creatinine Ratio (14-18) Glucose (74-106) mg/dL POC Glucose 86 (70-105) mg/dL Hemoglobin A1c (4.50-6.20) % Serum Osmolality (280-300) mosm/kg Lactic Acid (0.4-2.0) mmol/L Calcium (8.5-10.1) mg/dL Magnesium (1.8-2.4) mg/dl Total Bilirubin (0.2-1.0) mg/dL AST (15-37) U/L ALT (14-59) U/L Alkaline Phosphatase (46-116) U/L Troponin I (0.00-0.056) ng/mL C-Reactive Protein (<1.0) mg/dL Total Protein (6.4-8.2) g/dl Albumin (3.4-5.0) g/dl Globulin gm/dL Albumin/Globulin Ratio (1-2) Lipase (73-393) U/L TSH 3rd Generation (0.358-3.74) uIU/mL Urine Color (Yellow) Urine Appearance (Clear) Urine pH (5.0-8.0) Ur Specific [place] (1.005-1.030) Urine Protein (Negative) Urine Glucose (UA) (Negative) Urine Ketones (Negative) Urine Occult Blood (Negative) Urine Nitrite (Negative) Urine Bilirubin (Negative) Urine Urobilinogen (0.2-1.0) Ur Leukocyte Esterase (Negative) Urine RBC (0-5) /hpf Urine WBC (0-5) /hpf Ur Epithelial Cells (0-5) /hpf Urine Bacteria (FEW) /hpf Urine Mucus (FEW) /hpf Ketones (0.0-0.3) mM Med Orders - Current: Current Medications Acetaminophen (Tylenol) 650 mg PO Q4H PRN PRN Reason: Pain (Mild 1-3)/fever Albuterol/Ipratropium (Duoneb 3.0-0.5 Mg/3 Ml) 3 ml NEB Q4H PRN PRN Reason: Shortness Of Breath/wheezing Bisacodyl (Dulcolax) 5 mg PO DAILY PRN PRN Reason: Constipation Dextrose/Water (Dextrose 50% In Water) 50 ml IVPUSH ASDIRECTED PRN PRN Reason: Hypoglycemia Docusate Sodium (Colace) 100 mg PO BID PRN PRN Reason: Constipation Famotidine (Pepcid) 20 mg IVPUSH BID WILLIAM Hydralazine HCl (Apresoline) 20 mg IVPUSH Q4H PRN PRN Reason: Hypertension Sodium Chloride (Normal Saline) 1,000 mls @ 100 mls/hr IV ASDIRECTED [facility] Last Admin: 02/16/18 04:51 Dose: 100 mls/hr Insulin Aspart (Novolog) 0 unit SUBCUT Q6H [facility]; Protocol Last Admin: 02/16/18 06:53 Dose: Not Given Lorazepam (Ativan) 2 mg IVPUSH Q4H PRN PRN Reason: Seizures Magnesium Sulfate (Pharmacy To Dose - Magnesium Replacement) 1 dose .XX ASDIRECTED [facility] Metoclopramide HCl (Reglan) 5 mg IVPUSH ACBED [facility] Stop: 02/16/18 17:01 Last Admin: 02/16/18 07:08 Dose: Not Given Metoclopramide HCl (Reglan) 5 mg PO ACBED [facility] Metoprolol Tartrate (Lopressor) 5 mg IVPUSH Q4H PRN PRN Reason: Tachycardia Miscellaneous Information (Remove Patch) 1 ea TRDERM Q72H [facility] Stop: 02/18/18 18:31 Last Admin: 02/15/18 18:37 Dose: Not Given Potassium Chloride (Pharmacy To Dose - Potassium Replacement) 1 dose .XX ASDIRECTED [facility] Senna/Docusate Sodium (Senna Plus) 1 tab PO BID PRN PRN Reason: Constipation Sodium Chloride (Saline Flush) 10 ml FLUSH ASDIRECTED PRN PRN Reason: Keep Vein Open Last Admin: 02/15/18 13:05 Dose: 10 ml Temazepam (Restoril) 15 mg PO BEDTIME PRN PRN Reason: Sleep Discontinued Medications Albuterol/Ipratropium (Duoneb 3.0-0.5 Mg/3 Ml) 3 ml NEB Q4H PRN PRN Reason: Shortness Of Breath/wheezing Famotidine (Pepcid) 20 mg IVPUSH ONETIME ONE Stop: 02/15/18 18:28 Last Admin: 02/15/18 18:37 Dose: 20 mg Lactated Ringer's (Ringers, Lactated) 1,000 mls @ 999 mls/hr IV .BOLUS ONE Stop: 02/15/18 13:29 Last Admin: 02/15/18 13:05 Dose: 999 mls/hr Lactated Ringer's (Ringers, Lactated) 1,000 mls @ 999 mls/hr IV .BOLUS ONE Stop: 02/15/18 14:48 Last Admin: 02/15/18 14:07 Dose: 999 mls/hr Magnesium Sulfate 2 gm/ Premix 50 mls @ 50 mls/hr IV ONETIME ONE Stop: 02/15/18 16:52 Last Admin: 02/15/18 16:05 Dose: 50 mls/hr Erythromycin Lactobionate 250 (mg/ Sodium Chloride) 100 mls @ 100 mls/hr IV Q6H [facility] Stop: 02/16/18 13:29 Last Admin: 02/15/18 18:58 Dose: 100 mls/hr Magnesium Sulfate 2 gm/ Premix 50 mls @ 25 mls/hr IV Q1H WILLIAM Stop: 02/16/18 01:58 Last Admin: 02/16/18 05:01 Dose: Not Given Insulin Aspart (Novolog) 3 unit SUBCUT NOW STA Stop: 02/15/18 16:05 Last Admin: 02/15/18 16:11 Dose: 3 units Ketorolac Tromethamine (Toradol) 15 mg IVPUSH ONETIME ONE Stop: 02/15/18 13:40 Last Admin: 02/15/18 18:48 Dose: Not Given Lorazepam (Ativan) 0.5 mg IVPUSH ONETIME ONE Stop: 02/15/18 16:03 Last Admin: 02/15/18 16:12 Dose: 0.5 mg Metoclopramide HCl (Reglan) 10 mg IVPUSH Q6H [facility] Stop: 02/16/18 11:46 Last Admin: 02/15/18 18:49 Dose: Not Given Metoclopramide HCl (Reglan) 10 mg IVPUSH ONETIME ONE Stop: 06/22/18 18:25 Last Admin: 02/15/18 18:34 Dose: 10 mg Metoclopramide HCl (Reglan) 10 mg IVPUSH Q6H [facility] Stop: 02/16/18 19:01 Metoclopramide HCl (Reglan) 10 mg PO ACBED WILLIAM Metoclopramide HCl (Reglan) 5 mg IVPUSH Q6H [facility] Stop: 02/17/18 19:01 Ondansetron HCl (Zofran) 4 mg IVPUSH ONETIME ONE Stop: 02/15/18 12:31 Last Admin: 02/15/18 13:05 Dose: 4 mg Potassium Chloride (Klor-Con M20) 60 meq PO ONETIME ONE Stop: 02/16/18 00:00 Last Admin: 02/16/18 00:04 Dose: 60 meq Scopolamine (Transderm-Scop) 1.5 mg TRDERM Q72H ONE Stop: 02/15/18 18:19 Last Admin: 02/15/18 18:34 Dose: 1.5 mg - Exam General: Alert, Oriented, Cooperative, No Acute Distress HEENT: Pupils Equal, Pupils Reactive, EOMI, Mucous Membr. Moist/[place] Neck: Supple, +2 Carotid Pulse wo Bruit Lungs: Clear to Auscultation, Normal Respiratory Effort Cardiovascular: Regular Rate, Regular Rhythm GI/Abdominal Exam: Normal Bowel Sounds, Soft, Non-Tender, No Organomegaly, No Distention, No Abnormal Bruit, No Mass. No: Guarding, Rigid, Rebound (Female) Exam: Deferred Back Exam: Normal Inspection, Decreased Range of Motion Extremities: Normal Inspection, Normal Range of Motion, Non-Tender, No Pedal Edema, Normal Capillary Refill Peripheral Pulses: 2+: Dorsalis Pedis (R) Skin: Dry Neurological: No New Focal Deficit. No: Sensation Intact (Has lower extremity peripheral neuropathy) Psy/Mental Status: Alert, Normal Affect, Normal Mood - Problem List Review Problem List Initiated/Reviewed/Updated: Yes - My Orders Last 24 Hours: My Active Orders 02/15/18 17:35 LORazepam [Ativan] 2 mg IVPUSH Q4H PRN Metoprolol Tartrate [Lopressor] 5 mg IVPUSH Q4H PRN hydrALAZINE [Apresoline] 20 mg IVPUSH Q4H PRN 02/15/18 17:36 Blood Glucose Check, Bedside [RC] Q6H Dextrose 50% in Water 50 ml IVPUSH ASDIRECTED PRN 02/15/18 17:39 Oxygen Therapy [RC] PRN 02/15/18 17:45 Insulin Aspart [NovoLOG] See Protocol SUBCUT Q6H Magnesium Rep Pharmacy to Dose [Pharmacy to Dose - Magnesium Replacement] 1 dose .XX ASDIRECTED Potassium Rep Pharmacy to Dose [Pharmacy to Dose - Potassium Replacement] 1 dose .XX ASDIRECTED 02/15/18 18:12 Height and Weight [RC] DAILY Up ad [place] [RC] ASDIRECTED Acetaminophen [Tylenol] 650 mg PO Q4H PRN Albuterol/Ipratropium [DuoNeb 3.0-0.5 MG/3 ML] 3 ml NEB Q4H PRN Bisacodyl [Dulcolax] 5 mg PO DAILY PRN Docusate Sodium [Colace] 100 mg PO BID PRN Docusate Sodium/Sennosides [Senna Plus] 1 tab PO BID PRN Temazepam [Restoril] 15 mg PO BEDTIME PRN Resuscitation Status Routine 02/15/18 18:13 Intake and Output [RC] 04,16 VTE/DVT Education [RC] PER UNIT ROUTINE Vital Signs [RC] Q4HR 02/15/18 18:14 RT Aerosol Therapy [RC] ASDIRECTED 02/15/18 18:16 Sequential Compression Device [OM.PC] Per Unit Routine 02/15/18 18:30 Remove Patch 1 ea TRDERM Q72H Sodium Chloride 0.9% [Normal Saline] 1,000 ml IV ASDIRECTED 02/15/18 20:28 EKG 12 Lead [EK] Stat 02/15/18 20:29 EKG Documentation Completion [RC] ASDIRECTED 02/15/18 Dinner Nothing per Oral Now Diet [DIET] 02/16/18 05:30 BASIC METABOLIC PANEL,BMP [CHEM] AM C-REACTIVE PROTEIN [CHEM] AM CKMB [CHEM] AM LIPID PANEL [CHEM] AM MAGNESIUM [CHEM] AM TROPONIN I [CHEM] AM 02/16/18 07:00 EKG Documentation Completion [RC] ASDIRECTED Gastric Empty Study [NM] Routine Metoclopramide [Reglan] 5 mg IVPUSH ACBED EKG 12 Lead [EK] Routine 02/16/18 09:00 Famotidine [Pepcid] 20 mg IVPUSH BID 02/16/18 22:00 Metoclopramide [Reglan] 5 mg PO ACBED 02/17/18 05:11 BASIC METABOLIC PANEL,BMP [CHEM] AM CBC WITH AUTO DIFF [HEME] AM MAGNESIUM [CHEM] AM - Plan Plan:: Acute: 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--> She is now asymptomatic - Meets criteria: Abdominal Discomfort, nausea, vomiting and early satiety; + /- pyrosis - Risk Factor: 42 year hx/o Type 1 DM with Peripheral Neuropathy both on SA/ LA Insulin - 2 weeks on going symptoms w/o diarrhea - Last A1C was 7.3-this past Sunday when she saw her PCP for follow up - Initially seen in ED and was diagnosed with constipation - She was given bowel cleansing prep/agent but worsened her symptoms - She reports no recent travel outside the country, no unusual diet or drink and no change in her bowel habits - She did however went hiking around the period in [place] but denies being bitten by anything - She denies any fever, rigors, and chills. No skin rash or signs of localized infections since onset of symptoms--> rule out infections in etiology - Afebrie, w/o leukocytosi and with minimal CRP level of 1.2; UA is negative for UTI and CXR shows no acute abnormal findings - DDx: PUD, GERD and Gastric Dysmotility other than Gastroparesis - Medical management: Discontinued erythromycin and now on low dose IV/PO Reglan with parameter for QTc prolongation, start clear liquid diet, and continue intravenous hydration; H2B; electrolytes replacement and good glucose control - Continue to monitor for QT changes and make adjustment to regimen as needed - She needs gastric emptying study and EGD to confirm above diagnosis--not available on weekends; will schedule for outpatient DM 1 with Hyperglycemia - Long standing hx/o DM1 ~ 42 years - Most recent A1C was 7.3 this past Sunday according to her and 3 months before that she was 6.7; repeat A1C is 7.2 - She normally runs bet 120s-150s on average with her glucose - She is on ISS with Novolog TID and 21 units of Trujeo QHS for insulin regimen - BS on initial lab 282 and her FSBS is 320--> essentially the same - Accu-check now QIDACandHS with ISS; will resume LA insulin once she starts full liquid diet - Continue Home dose of ASA, Statin and ACEI - Start clear liquid diet and advance as tolerated Hypokalemia - K 3.1 --> 4.3 - 2/2 GI loss and no intake - Monitor Hypocalcemia - Ca 8.3--> 7.7--> now 7.8 - 2/2 GI loss and no intake (npo) - Replete and monitor Borderline QTc Prolongation/Acquired Long QTc Syndrome - Corrected QTc is 462-> Corrected QTc at 0700 is 452 and at 1053 is 464 - 2/2 Sinus Bradycardia/1st AVB, Drug-induced by Erythromycin/Reglan, Compounded by Electrolytes Abnormality: (Hypomagnesemia, Hypokalemia and Hypocalcemia) - Risk factors: Female, Longstanding hx/o DM1 (Has peripheral neuropathy on gabapentin), and Hypothyroidism - Currently asymptomatic but admits to having palpitations and dizziness within the 2 weeks onset of symptoms. No syncopal episode or chest pain - No family hx/o Congenital Long QT syndrome - She is not on any murtaza blocking agents, diuretics, anticholinergics, cimetadine or estrogen - Continue to monitor patient closely with low reglan treatment - Replete electrolytes and serial EKGs prior to administration of reglan - Give reglan if QTc is < 470 S/p 1st Degree AVB/Sinus Bradycardia - HR in the 40s-50s - She is asymptomatic and not on any murtaza blocking agents - Serial EKGs at least x 4 all show Q wave in inferior and anterior leads - She may have a mild cardiac diabetic neuropathy; consider 2D echo and Heart Scan/Calcium Score Medical Non-Compliance - A1C 6.7 3 months ago and now bet 7.2-7.3 - She did admit to maybe not using her ISS right - Her glucose on average runs in the 200s - Educated patient the importance of medical and dietary compliance High Risk for CVD - She is on ASA, Statin and PAIGE - Q wave in anterior and inferior leads - Bradycardia/Status post 1st Degree AVB and Borderline QTc Prolongation - 2D echo and Heart scan outpatient Resolved: S/p Hypomagnesemia - Mg 1.5--> 1.8---> now 2.4 - 2/2 GI Loss and no intake (npo) - Replete and monitor Chronic: Impaired Vision Acquired Hypothyroidism, TSH normal Diabetic Neuropathy on Gabapentin Plan: She is clinically much better Continue current treatment Start clear liquid diet and advance as tolerated Routine AM Labs Lipid Panel and CE this AM both wnl Repeat K, Ca, and Mg levels along with Vitamin D level, PTH, and FT4 at noon Additional orders as above Code status:1 Spoke to daughter and at bedside. Updated them about patient's diagnosis , prognosis and discharge care plan. Discharge if she continues to do well in AM.
[2018-02-16] MEDS ORDERED: Calcium Carbonate 600 MG Tab PO ONE (09:06)
[2018-02-16] MEDS: Famotidine 20 MG/2 ML SDV IVPUSH SCH ×2 (10:07→21:10)
[2018-02-16] MEDS: Calcium Carbonate 600 MG Tab PO SCH (16:49)
[2018-02-16] MEDS ORDERED: Acetaminophen 325 MG Tab PO PRN (17:40)
[2018-02-16] MEDS ORDERED: Oxymetazoline 0.05% Nasal Spray 15 ML Bottle NAS ONE ×2 (17:58→21:00)
[2018-02-16] MEDS ORDERED: Gabapentin 300 MG Cap PO SCH (21:00)
[2018-02-16] MEDS ORDERED: Insulin Detemir 100 Units/ML 3 ML Pen SUBCUT SCH (21:00)
[2018-02-16] MEDS ORDERED: TOUJEO SUBCUT SCH (21:30)
[2018-02-16] MEDS: Metoclopramide 10 MG Tab PO SCH (22:25)
[2018-02-17] MEDS ORDERED: Levothyroxine 50 MCG Tab PO SCH (06:00)
[2018-02-17] MEDS: Calcium Carbonate 600 MG Tab PO SCH (06:10)
[2018-02-17] MEDS: Metoclopramide 10 MG Tab PO SCH (06:10)
[2018-02-17] MEDS: Insulin Aspart 100 Units/ML 3 ML Pen SUBCUT SCH (06:11)
[2018-02-17] MEDS ORDERED: Metoclopramide 10 MG/2 ML SDV IVPUSH SCH (07:00)
[2018-02-17] MEDS ORDERED: Metoclopramide 10 MG Tab PO SCH (07:00)
[2018-02-17] MEDS ORDERED: Magnesium Sulfate/Water 2 GM in Premix Bag 1 BAG IV ONE (07:30)
[2018-02-17] MEDS: Famotidine 20 MG/2 ML SDV IVPUSH SCH (08:08)
[2018-02-17] MEDS ORDERED: Oxymetazoline 0.05% Nasal Spray 15 ML Bottle NAS SCH (09:00)
[2018-02-17] MEDS ORDERED: Lisinopril 20 MG Tab PO SCH (09:00)
[2018-02-17] MEDS ORDERED: Simvastatin 10 MG Tab PO SCH (09:00)
[2018-02-17] MEDS ORDERED: Potassium Chloride 20 MEQ Tab.ER PO SCH (09:00)
[2018-02-17] MEDS ORDERED: Magnesium Oxide 400 MG Tab PO SCH ×2 (09:00→21:00)
[2018-02-17] MEDS ORDERED: Magnesium Oxide 400 MG Tab PO ONE (09:00)
[2018-02-17] MEDS ORDERED: Aspirin 81 MG Tab.EC PO SCH (09:00)
--- NOTE | 2018-02-17 10:43 | PCM.DCSUM1 ---
Discharge Summary - Hospital Course Brief History: This is a 62 yo white female with past medical hx/o DM1 for 41 years now, Peripheral Neuropathy and Hypothyroidism who comes in with 2 weeks hx /o GI complaints of abdominal discomfort, nausea, vomiting, pyrosis and early satiety. She also reports having no appetite and as a result she had a considerable amount of weight loss. She admits to having dry cough but w/o shortness of breath. She denies having diarrhea or change in bowel habits. Patient was initially seen in ED on 01/30/2018, presented with complaints of bilateral lower back pain associated with nausea and vomiting. At that time, kidney stone was a concern but her CT scan revealed no acute abnormal finding for liver, pancreas, gall bladder or renal stones. However she was noted for increased stool throughout the entire colon and was subsequently diagnosed with constipation. According to patient, she was discharged with a colon prep/ stimulant and was able to evacuate her stools w/o much trouble. Her last bowel movement was yesterday and was regular. However she is not passing much gas. Patient reports no recent trauma or surgery. Her screening colonoscopy was done this past May at [facility] with benign findings (per patient). She carries no hx/o GERD or PUD and most importantly she never had EGD in the past. Patient reports no recent travel outside the country. No unusual diet or drink and no sick contact. She could not remember her last meal but she admits to hiking with her family in [place] prior to onset of her symptoms. Her initial work up in ED shows a CBC remarkable for MCV of 78.5, MCHC of 36 and eosinophils of 0.3%. Her ABG shows a pH of 7.53, PCO2 of 22.6, PO2 of 101, HCO3 of 19, and O2 saturation of 98.6% on 21% FiO2. Her chemistry is significant for glucose of 282, calcium of 8.3, magnesium of 1.5, ALT of 13, CRP of 1.2, albumin of 2.1, and lipase of 49. Her initial troponin level and d-dimer are both wnls. Her chest x-ray shows no acute abnormal findings. Patient is being admitted for evaluation of probable diabetic gastroparesis. She is full code. Diagnosis: Stroke: No - Discharge Data Discharge Date: 02/17/18 Discharge Disposition: Home, Self-Care 01 Condition: Good - Discharge Diagnosis/Problem(s) (1) Gastroparesis due to secondary diabetes SNOMED Code(s): 0775302, 397673146 ICD Code: E13.43 - OTH DIABETES MELLITUS W DIABETIC AUTONOMIC (POLY) NEUROPATHY Status: Acute (2) Hyperglycemia due to type 1 diabetes mellitus SNOMED Code(s): 681330772967238, 758655882304284 ICD Code: E10.65 - TYPE 1 DIABETES MELLITUS WITH HYPERGLYCEMIA Status: Acute (3) Hypomagnesemia syndrome SNOMED Code(s): 450428862 ICD Code: E83.42 - HYPOMAGNESEMIA Status: Acute (4) First degree AV block SNOMED Code(s): 076227843 ICD Code: I44.0 - ATRIOVENTRICULAR BLOCK, FIRST DEGREE Status: Acute Problem Details: - Asymptomatic (5) Bradycardia, sinus SNOMED Code(s): 91723089 ICD Code: R00.1 - BRADYCARDIA, UNSPECIFIED Status: Acute Problem Details : - Asymptomatic (6) Hypokalemia, gastrointestinal losses SNOMED Code(s): 34220231 ICD Code: E87.6 - HYPOKALEMIA Status: Resolved (7) Long QT interval SNOMED Code(s): 655517887 ICD Code: R94.31 - ABNORMAL ELECTROCARDIOGRAM [ECG] [EKG] Status: Resolved Problem Details: - Most recent EKG 02/17/2018 at 5:55 QTc is 429 (8) Non-adherence to medical treatment SNOMED Code(s): 649664502 ICD Code: Z91.19 - PATIENT'S NONCOMPLIANCE W OTH MEDICAL TREATMENT AND REGIMEN Status: Resolved Problem Details: - Admitted to maybe not following her ISS - Patient Summary/Data Operative Procedure(s) Performed: None Complications: None Consults: None Labs Pending at D/C: None Recommended Follow-up Testing/Procedures: 2D echo and heart scan to assess CVD status, Gastric Empty study to rule/in Diabetic Gastroparesis and EGD to r/o other causes of Gastric Dysmotility Planned Operative Procedure(s) after DC: None Hospital Course: Patient was admitted for further evaluation of subacute GI complaints that have been going on for 2 weeks now. She was told originally she had constipation but after undergoing gut cleansing, her GI symptoms remained the same. All if not most of her diagnostic work up in the hospital yielded no significant result. However after putting it all together, we felt she had new onset of diabetic gastroparesis given her immediate response to prokinetic agents (reglan/ erythromycin) and in the setting of longstanding type 1 diabetes. She did have borderline QT prolongation monitored on Tele and serial EKGs but quickly resolved once her regimen was adjusted. Her hospital course was uncomplicated and the rest of her chronic medical illness remained stable during this admission. Unfortunately we were not able to perform confirmatory tests of her diagnosis during her short hospital stay. However she was advised to get gastric emptying study and EGD done outpatient to confirm and r/o other causes of gastric dysmotility. She was further advised to have a 2D echo and heart scan due to increased risk of cardiovascular disease in diabetic patient. And most importantly, she was advised to come back or seek immediate care should her symptoms persist or get worse. The patient and her expressed understand and in agreement with the plans as discussed above. All questions were answered. Her PCP, Dr. Goetz was updated and informed about her diagnosis and discharge care plan. He was advised to perform serial EKGs to monitor for QT Prolongation while patient is on prokinetic agent with reglan. - Patient Instructions Diet: Usual Diet as Tolerated, Diabetic Diet Activity: As Tolerated Driving: Do Not Drive Showering/Bathing: May Shower Notify Provider of: Fever, Increased Pain, Nausea and/or Vomiting Other/Special Instructions: - Please take new medication as directed. - Resume all home medications and routine activities as tolerated. - Follow Gastroparesis and ADA diet. - Please come back to the hospital for gastric emptying study to confirm your diagnosis (call first). - Recommend 2D echocardiogram for baseline, Heart scan to assess CVD and EGD after gastric emptying study to r/o other causes of your gastric dysmotility. - Recommend life style modification: eat properly, exercise regulary and maintain an ideal weight. - Call your family doctor for any questions or concerns after discharge from the hospital. - Follow up with PCP in 1-2 week. - Come back or seek immediate care should your symptoms persist or get worse - Discharge Plan Prescriptions/Med Rec: Metoclopramide [Reglan] 5 mg PO ASDIRECTED #30 tab Home Medications: Home Meds Acetaminophen 500 mg PO DAILY PRN 02/16/18 [History] Acetaminophen/oxyCODONE [Percocet 325-5 MG] 1 - 2 tab PO DAILY PRN 02/16/18 [ History] Aspirin [Adult Low Dose Aspirin EC] 81 mg PO DAILY 02/16/18 [History] Gabapentin [Neurontin] 1,200 mg PO BEDTIME 02/16/18 [History] Insulin Aspart [NovoLOG] 6 units SQ ACBREAKFAST 02/16/18 [History] Insulin Aspart [Novolog Flexpen] 8 units SQ ACLUNCH 02/16/18 [History] Insulin Aspart [Novolog Flexpen] 12 units SQ ACDINNER 02/16/18 [History] Insulin Glargine,Hum.Rec.Anlog [Toujeo Solostar] 21 unit SQ 0930 02/16/18 [ History] Levothyroxine [Synthroid] 50 mcg PO DAILY 02/16/18 [History] Lisinopril 20 mg PO DAILY 02/16/18 [History] atorvaSTATin [Lipitor] 10 mg PO DAILY 02/16/18 [History] Metoclopramide [Reglan] 5 mg PO ASDIRECTED #30 tab 02/17/18 [Rx] Patient Handouts: Hypokalemia, Bradycardia, Adult, Diabetes Mellitus and Sick Day Management, Hyperglycemia, [id number], First-Degree Atrioventricular Block , Gastroparesis Referrals: Kobe Bell MD [Primary Care Provider] - (Please call and schedule a post- hospital follow-up appointment with your primary care doctor, Dr. Bell, in 1 to 2 weeks. ) - Discharge Summary/Plan Comment DC Time >30 min.: Yes (45 mins) Discharge Summary/Plan Comment: Discharge to Home - General Info Date of Service: 02/17/18 Admission Dx/Problem (Free Text: Admission Diagnosis/Problem Admission Diagnosis/Problem Hyperglycemia Subjective Update: Follow Up Functional Status: Reports: Pain Controlled, Tolerating Diet, Ambulating, Urinating - Review of Systems General: Denies: Fever, Weakness, Fatigue, Malaise, Chills HEENT: Reports: No Symptoms Pulmonary: Reports: Cough. Denies: Shortness of Breath, Pleuritic Chest Pain Cardiovascular: Denies: Chest Pain, Palpitations, Dyspnea on Exertion, Lightheadedness Gastrointestinal: Denies: Abdominal Pain, Nausea, Vomiting Genitourinary: Reports: No Symptoms Musculoskeletal: Reports: No Symptoms Skin: Denies: Jaundice, Mottled, Pallor, Diaphoresis, Bruising, Rash Neurological: Denies: Confusion, Difficulty Walking, Weakness, Gait Disturbance Psychiatric: Denies: Depression, Anxiety, Agitation, Hallucinations Systems Review Comment: No overnight or acutes. She feels pretty good and again no complaints. She tolerated her regular diet this morning w/o any symptoms. Her Mg is slightly low at 1.7. Her most recent vitals are fairly stable. - Patient Data Vitals - Most Recent: Last Vital Signs Temp 36.8 C 02/17/18 08:05 Pulse 62 02/17/18 08:05 Resp 15 02/17/18 08:05 BP 140/72 02/17/18 08:08 Pulse Ox 98 02/17/18 08:05 Weight - Most Recent: 90.401 kg I&O - Last 24 hours: Intake & Output 02/16/18 02/17/18 02/17/18 22:59 06:59 14:59 Intake Total 4 1479 Balance 2070 1479 Lab Results - Last 24 hrs: Laboratory Results - last 24 hr 02/16/18 02/16/18 02/16/18 Range/Units 05:53 11:54 11:55 WBC (3.98-10.04) K/mm3 RBC (3.98-5.22) M/mm3 Hgb (11.2-15.7) gm/L Hct (34.1-44.9) % MCV (79.4-94.8) fl MCH (25.6-32.2) pg MCHC (32.2-35.5) g/dl RDW Std Deviation (36.4-46.3) fL Plt Count (182-369) K/mm3 MPV (9.4-12.3) fl Neut % (Auto) (34.0-71.1) % Lymph % (Auto) (19.3-51.7) % Nelson % (Auto) (4.7-12.5) % Eos % (Auto) (0.7-5.8) Baso % (Auto) (0.1-1.2) % Neut # (Auto) (1.56-6.13) K/mm3 Lymph # (Auto) (1.18-3.74) K/mm3 Nelson # (Auto) (0.24-0.36) K/mm3 Eos # (Auto) (0.04-0.36) K/mm3 Baso # (Auto) (0.01-0.08) K/mm3 Sodium (136-145) mEq/L Potassium 4.1 (3.5-5.1) mEq/L Chloride (98-107) mEq/L Carbon Dioxide (21-32) mEq/L Anion Gap (5-15) BUN (7-18) mg/dL Creatinine (0.55-1.02) mg/dL Est Cr Clr Drug Dosing mL/min Estimated GFR (MDRD) (>60) mL/min BUN/Creatinine Ratio (14-18) Glucose (74-106) mg/dL POC Glucose 136 H 248 H (70-105) mg/dL Calcium 8.5 (8.5-10.1) mg/dL Magnesium 1.9 (1.8-2.4) mg/dl Free T4 (0.76-1.46) ng/dL 02/16/18 02/16/18 02/16/18 Range/Units 11:55 16:56 20:59 WBC (3.98-10.04) K/mm3 RBC (3.98-5.22) M/mm3 Hgb (11.2-15.7) gm/L Hct (34.1-44.9) % MCV (79.4-94.8) fl MCH (25.6-32.2) pg MCHC (32.2-35.5) g/dl RDW Std Deviation (36.4-46.3) fL Plt Count (182-369) K/mm3 MPV (9.4-12.3) fl Neut % (Auto) (34.0-71.1) % Lymph % (Auto) (19.3-51.7) % Nelson % (Auto) (4.7-12.5) % Eos % (Auto) (0.7-5.8) Baso % (Auto) (0.1-1.2) % Neut # (Auto) (1.56-6.13) K/mm3 Lymph # (Auto) (1.18-3.74) K/mm3 Nelson # (Auto) (0.24-0.36) K/mm3 Eos # (Auto) (0.04-0.36) K/mm3 Baso # (Auto) (0.01-0.08) K/mm3 Sodium (136-145) mEq/L Potassium (3.5-5.1) mEq/L Chloride (98-107) mEq/L Carbon Dioxide (21-32) mEq/L Anion Gap (5-15) BUN (7-18) mg/dL Creatinine (0.55-1.02) mg/dL Est Cr Clr Drug Dosing mL/min Estimated GFR (MDRD) (>60) mL/min BUN/Creatinine Ratio (14-18) Glucose (74-106) mg/dL POC Glucose 275 H 267 H (70-105) mg/dL Calcium (8.5-10.1) mg/dL Magnesium (1.8-2.4) mg/dl Free T4 1.23 (0.76-1.46) ng/dL 02/17/18 02/17/18 Range/Units 04:59 04:59 WBC 7.15 (3.98-10.04) K/mm3 RBC 4.55 (3.98-5.22) M/mm3 Hgb 13.2 (11.2-15.7) gm/L Hct 36.7 (34.1-44.9) % MCV 80.7 (79.4-94.8) fl MCH 29.0 (25.6-32.2) pg MCHC 36.0 H (32.2-35.5) g/dl RDW Std Deviation 38.7 (36.4-46.3) fL Plt Count 250 (182-369) K/mm3 MPV 10.6 (9.4-12.3) fl Neut % (Auto) 48.0 (34.0-71.1) % Lymph % (Auto) 39.4 (19.3-51.7) % Nelson % (Auto) 11.2 (4.7-12.5) % Eos % (Auto) 1.1 (0.7-5.8) Baso % (Auto) 0.3 (0.1-1.2) % Neut # (Auto) 3.43 (1.56-6.13) K/mm3 Lymph # (Auto) 2.82 (1.18-3.74) K/mm3 Nelson # (Auto) 0.80 H (0.24-0.36) K/mm3 Eos # (Auto) 0.08 (0.04-0.36) K/mm3 Baso # (Auto) 0.02 (0.01-0.08) K/mm3 Sodium 139 (136-145) mEq/L Potassium 3.5 (3.5-5.1) mEq/L Chloride 109 H (98-107) mEq/L Carbon Dioxide 23 (21-32) mEq/L Anion Gap 10.5 (5-15) BUN 16 (7-18) mg/dL Creatinine 0.7 (0.55-1.02) mg/dL Est Cr Clr Drug Dosing 85.56 mL/min Estimated GFR (MDRD) > 60 (>60) mL/min BUN/Creatinine Ratio 22.9 H (14-18) Glucose 147 H (74-106) mg/dL POC Glucose (70-105) mg/dL Calcium 8.0 L (8.5-10.1) mg/dL Magnesium 1.7 L (1.8-2.4) mg/dl Free T4 (0.76-1.46) ng/dL Med Orders - Current: Current Medications Acetaminophen (Tylenol) 650 mg PO Q4H PRN PRN Reason: Pain (Mild 1-3)/fever Acetaminophen (Tylenol) 650 mg PO DAILY PRN PRN Reason: PAIN Albuterol/Ipratropium (Duoneb 3.0-0.5 Mg/3 Ml) 3 ml NEB Q4H PRN PRN Reason: Shortness Of Breath/wheezing Aspirin (Halfprin) 81 mg PO DAILY [facility] Last Admin: 02/17/18 08:08 Dose: 81 mg Bisacodyl (Dulcolax) 5 mg PO DAILY PRN PRN Reason: Constipation Calcium Carbonate/Glycine (Calcium Carbonate) 1,200 mg PO BIDMEALS [facility] Stop: 02/17/18 17:01 Last Admin: 02/17/18 06:10 Dose: 1,200 mg Dextrose/Water (Dextrose 50% In Water) 50 ml IVPUSH ASDIRECTED PRN PRN Reason: Hypoglycemia Docusate Sodium (Colace) 100 mg PO BID PRN PRN Reason: Constipation Famotidine (Pepcid) 20 mg IVPUSH BID [facility] Last Admin: 02/17/18 08:08 Dose: 20 mg Flunisolide (Nasalide Nasal [place]) 0 ml NASBOTH BID [facility] Last Admin: 02/17/18 08:08 Dose: Not Given Gabapentin (Neurontin) 1,200 mg PO BEDTIME [facility] Last Admin: 02/16/18 21:08 Dose: 1,200 mg Hydralazine HCl (Apresoline) 20 mg IVPUSH Q4H PRN PRN Reason: Hypertension Last Admin: 02/16/18 17:04 Dose: 20 mg Sodium Chloride (Normal Saline) 1,000 mls @ 100 mls/hr IV ASDIRECTED [facility] Last Admin: 02/16/18 23:23 Dose: 100 mls/hr Insulin Aspart (Novolog) 0 unit SUBCUT QIDACANDBED [facility]; Protocol Last Admin: 02/17/18 06:11 Dose: Not Given Levothyroxine Sodium (Synthroid) 50 mcg PO DAILY@0600 [facility] Last Admin: 02/17/18 06:09 Dose: 50 mcg Lisinopril (Prinivil) 20 mg PO DAILY [facility] Last Admin: 02/17/18 08:08 Dose: 20 mg Lorazepam (Ativan) 2 mg IVPUSH Q4H PRN PRN Reason: Seizures Magnesium Sulfate (Pharmacy To Dose - Magnesium Replacement) 1 dose .XX ASDIRECTED PRN PRN Reason: RX TO DOSE Metoclopramide HCl (Reglan) 5 mg PO ACBED [facility] Last Admin: 02/17/18 06:10 Dose: 5 mg Metoprolol Tartrate (Lopressor) 5 mg IVPUSH Q4H PRN PRN Reason: Tachycardia Miscellaneous Information (Remove Patch) 1 ea TRDERM Q72H [facility] Stop: 02/18/18 18:31 Last Admin: 02/15/18 18:37 Dose: Not Given Toujeo Pt Own 0 each SUBCUT Q24H [facility] Last Admin: 02/16/18 21:02 Dose: 21 each Oxymetazoline HCl (Afrin Original 0.05% Nasal [place]) 0 ml TERRENCE Q12HR [facility] Last Admin: 02/17/18 08:08 Dose: Not Given Potassium Chloride (Pharmacy To Dose - Potassium Replacement) 1 dose .XX ASDIRECTED PRN PRN Reason: RX TO DOSE Potassium Chloride (Klor-Con M20) 40 meq PO Q4H [facility] Stop: 02/17/18 13:01 Last Admin: 02/17/18 09:04 Dose: 40 meq Senna/Docusate Sodium (Senna Plus) 1 tab PO BID PRN PRN Reason: Constipation Simvastatin (Zocor) 10 mg PO DAILY [facility] Last Admin: 02/17/18 08:08 Dose: 10 mg Sodium Chloride (Saline Flush) 10 ml FLUSH ASDIRECTED PRN PRN Reason: Keep Vein Open Last Admin: 02/15/18 13:05 Dose: 10 ml Temazepam (Restoril) 15 mg PO BEDTIME PRN PRN Reason: Sleep Discontinued Medications Albuterol/Ipratropium (Duoneb 3.0-0.5 Mg/3 Ml) 3 ml NEB Q4H PRN PRN Reason: Shortness Of Breath/wheezing Calcium Carbonate/Glycine (Calcium Carbonate) 1,200 mg PO ONETIME ONE Stop: 02/16/18 09:07 Last Admin: 02/16/18 10:07 Dose: 1,200 mg Famotidine (Pepcid) 20 mg IVPUSH ONETIME ONE Stop: 02/15/18 18:28 Last Admin: 02/15/18 18:37 Dose: 20 mg Lactated Ringer's (Ringers, Lactated) 1,000 mls @ 999 mls/hr IV .BOLUS ONE Stop: 02/15/18 13:29 Last Admin: 02/15/18 13:05 Dose: 999 mls/hr Lactated Ringer's (Ringers, Lactated) 1,000 mls @ 999 mls/hr IV .BOLUS ONE Stop: 02/15/18 14:48 Last Admin: 02/15/18 14:07 Dose: 999 mls/hr Magnesium Sulfate 2 gm/ Premix 50 mls @ 50 mls/hr IV ONETIME ONE Stop: 02/15/18 16:52 Last Admin: 02/15/18 16:05 Dose: 50 mls/hr Erythromycin Lactobionate 250 (mg/ Sodium Chloride) 100 mls @ 100 mls/hr IV Q6H [facility] Stop: 02/16/18 13:29 Last Admin: 02/15/18 18:58 Dose: 100 mls/hr Magnesium Sulfate 2 gm/ Premix 50 mls @ 25 mls/hr IV Q1H [facility] Stop: 02/16/18 01:58 Last Admin: 02/16/18 05:01 Dose: Not Given Magnesium Sulfate 2 gm/ Premix 50 mls @ 25 mls/hr IV ONETIME ONE Stop: 02/17/18 09:29 Last Admin: 02/17/18 08:07 Dose: 25 mls/hr Insulin Aspart (Novolog) 3 unit SUBCUT NOW STA Stop: 02/15/18 16:05 Last Admin: 02/15/18 16:11 Dose: 3 units Insulin Aspart (Novolog) 0 unit SUBCUT Q6H [facility]; Protocol Last Admin: 02/16/18 17:10 Dose: 6 units Ketorolac Tromethamine (Toradol) 15 mg IVPUSH ONETIME ONE Stop: 02/15/18 13:40 Last Admin: 02/15/18 18:48 Dose: Not Given Lorazepam (Ativan) 0.5 mg IVPUSH ONETIME ONE Stop: 02/15/18 16:03 Last Admin: 02/15/18 16:12 Dose: 0.5 mg Magnesium Oxide (Magnesium Oxide) 400 mg PO BID [facility] Magnesium Oxide (Magnesium Oxide) 400 mg PO BID [facility] Magnesium Oxide (Magnesium Oxide) 400 mg PO ONETIME ONE Stop: 02/17/18 09:01 Last Admin: 02/17/18 09:01 Dose: Not Given Metoclopramide HCl (Reglan) 10 mg IVPUSH Q6H [facility] Stop: 02/16/18 11:46 Last Admin: 02/15/18 18:49 Dose: Not Given Metoclopramide HCl (Reglan) 10 mg IVPUSH ONETIME ONE Stop: 02/15/18 18:25 Last Admin: 02/15/18 18:34 Dose: 10 mg Metoclopramide HCl (Reglan) 10 mg IVPUSH Q6H [facility] Stop: 02/16/18 19:01 Metoclopramide HCl (Reglan) 10 mg PO ACBED [facility] Metoclopramide HCl (Reglan) 5 mg IVPUSH Q6H [facility] Stop: 02/17/18 19:01 Metoclopramide HCl (Reglan) 5 mg IVPUSH ACBED [facility] Stop: 02/16/18 17:01 Last Admin: 02/16/18 17:41 Dose: 5 mg Ondansetron HCl (Zofran) 4 mg IVPUSH ONETIME ONE Stop: 02/15/18 12:31 Last Admin: 02/15/18 13:05 Dose: 4 mg Oxymetazoline HCl (Afrin Original 0.05% Nasal [place]) 0 ml TERRENCE ONETIME ONE Stop: 02/16/18 17:59 Last Admin: 02/16/18 20:26 Dose: Not Given Oxymetazoline HCl (Afrin Original 0.05% Nasal [place]) 0 ml TERRENCE ONETIME ONE Stop: 02/16/18 21:01 Last Admin: 02/16/18 21:10 Dose: Not Given Potassium Chloride (Klor-Con M20) 60 meq PO ONETIME ONE Stop: 02/16/18 00:00 Last Admin: 02/16/18 00:04 Dose: 60 meq Scopolamine (Transderm-Scop) 1.5 mg TRDERM Q72H ONE Stop: 02/15/18 18:19 Last Admin: 02/15/18 18:34 Dose: 1.5 mg - Exam General: Reports: Alert, Oriented, Cooperative, No Acute Distress HEENT: Reports: Pupils Equal, Pupils Reactive, EOMI, Mucous Membr. Moist/[place] Neck: Reports: Supple, Trachea Midline, No JVD, No Thyromegaly Lungs: Reports: Clear to Auscultation, Normal Respiratory Effort Cardiovascular: Reports: Regular Rate, Regular Rhythm GI/Abdominal Exam: Normal Bowel Sounds, Soft, Non-Tender, No Organomegaly, No Distention, No Abnormal Bruit, No Mass (Female) Exam: Deferred Rectal (Female) Exam: Deferred Back Exam: Reports: Normal Inspection, Decreased Range of Motion Extremities: Normal Inspection, Normal Range of Motion, Non-Tender, No Pedal Edema, Normal Capillary Refill Skin: Reports: Warm, Dry, Intact Neurological: Reports: No New Focal Deficit. Denies: Sensation Intact Psy/Mental Status: Reports: Alert, Normal Affect, Normal Mood
== END 2018-02-17 10:50 | disposition home or self-care (01) | DRG 48 ==
LOC: JD.ED 11:26 → JD.MS 17:10 → OBSVTOIN 02-16 14:48 → JD.MS 02-16 14:48
PROVIDERS: ADMIT Internal Medicine; ATTEND Internal Medicine
PROC: 039Y3ZZ Drainage of Upper Artery, Percutaneous Approach (ICD-10-PCS; principal; 2018-02-15)
DX: E10.43 Type 1 diabetes mellitus with diabetic autonomic (poly)neuropathy (principal); E87.3 Alkalosis; E10.21 Type 1 diabetes mellitus with diabetic nephropathy; E10.65 Type 1 diabetes mellitus with hyperglycemia; E83.42 Hypomagnesemia; I45.81 Long QT syndrome; E83.51 Hypocalcemia; E10.42 Type 1 diabetes mellitus with diabetic polyneuropathy; K31.84 Gastroparesis; E03.9 Hypothyroidism, unspecified; K59.00 Constipation, unspecified; I44.0 Atrioventricular block, first degree; R00.1 Bradycardia, unspecified; E87.6 Hypokalemia; H54.7 Unspecified visual loss; E78.00 Pure hypercholesterolemia, unspecified; I10 Essential (primary) hypertension; F41.9 Anxiety disorder, unspecified; T36.3X5A Adverse effect of macrolides, initial encounter; T45.0X5A Adverse effect of antiallergic and antiemetic drugs, initial encounter; Z91.14 Patient's other noncompliance with medication regimen; Z79.82 Long term (current) use of aspirin; Z79.4 Long term (current) use of insulin; Z79.899 Other long term (current) drug therapy
CPT/HCPCS: 36415; 36600; 71046; 71046-26; 80048; 80053; 80061; 81001; 82009; 82306; 82310; 82330; 82553; 82803; 82962; 83036; 83605; 83690; 83735; 83930; 83970; 84132; 84439; 84443; 84484; 85025; 85379; 86140; 87486; 87581; 87633; 87798; 93005; 93010; 96361; 96365; 96366; 96367; 96372; 96375; 96376; 99284; 99285-25; A9270-GY; G0378; J0360; J1364; J1815-GY; J2060; J2405; J2765; J3475; J7030; J7040; J7050; J7120

== ENCOUNTER 2018-02-18 16:50 | Emergency (ER) | payer BC ==
--- NOTE | 2018-02-18 17:36 | EDM.PDOC ---
ED HPI GENERAL MEDICAL PROBLEM - General Chief Complaint: Respiratory Problem Stated Complaint: SHORTNESS OF BREATH Time Seen by Provider: 02/18/18 17:35 Source of Information: Reports: Patient History Limitations: Reports: No Limitations - History of Present Illness INITIAL COMMENTS - FREE TEXT/NARRATIVE: 52-year-old female presents to the ED with her . Patient has been ill for over 2 and half weeks now. She reports chronic upper abdominal discomfort which she described as a diffuse burning discomfort. She states she is nauseated a good portion of the time. Rarely vomits. Did have looser stools today without any blood. She is a type I diabetic 41 years with overall blood sugars fairly well controlled. No new medications in regards to treatment. She is not known to have a gastroparesis. She's had no previous abdominal surgery. He has a mild cough. She was worked up recently for pulmonary embolism and cardiac workup which proved to be negative. She was hospitalized for 1 day with no positive findings and was discharged last evening. States she has small piece of lasagna for supper last night and subsequently has been unable to eat. Blood sugars today were around 190. She denies any back pain. She denies any dysuria. She has frequency she feels secondarily fluids she got well in hospital. She denies any medication changes other than the recent addition of thing to help with potential ulcer which I probably suspect his omeprazole. She has no iodine aphasia or trouble swallowing. She appreciates that her blood pressures been running much higher than normal the last several weeks. Onset: Gradual (Has been ill for the last 2-1/2 weeks. Estimated she's lost about 13 pounds of weight. Just simply can't eat. Even the smell of some food turns her off.) Onset Date: 01/29/18 (Early January she became ill.) Duration: Week(s): Location: Reports: Abdomen (Upper abdominal discomfort. She described as a burning discomfort. 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: Other (see below) (She has taken her usual medications a but she's been unable to eat at all.) Abdominal Pain Score (Numeric/FACES): 5 - Related Data Allergies Allergy/AdvReac Type Severity Reaction Status Date / Time No Known Allergies Allergy Verified 02/15/18 12:03 Home Meds: Home Meds Acetaminophen 500 mg PO DAILY PRN 02/16/18 [History] Acetaminophen/oxyCODONE [Percocet 325-5 MG] 1 - 2 tab PO DAILY PRN 02/16/18 [ History] Aspirin [Adult Low Dose Aspirin EC] 81 mg PO DAILY 02/16/18 [History] Gabapentin [Neurontin] 1,200 mg PO BEDTIME 02/16/18 [History] Insulin Aspart [NovoLOG] 6 units SQ ACBREAKFAST 02/16/18 [History] Insulin Aspart [Novolog Flexpen] 8 units SQ ACLUNCH 02/16/18 [History] Insulin Aspart [Novolog Flexpen] 12 units SQ ACDINNER 02/16/18 [History] Insulin Glargine,Hum.Rec.Anlog [Toujeo Solostar] 21 unit SQ 0930 02/16/18 [ History] Levothyroxine [Synthroid] 50 mcg PO DAILY 02/16/18 [History] Lisinopril 20 mg PO DAILY 02/16/18 [History] atorvaSTATin [Lipitor] 10 mg PO DAILY 02/16/18 [History] Metoclopramide [Reglan] 5 mg PO ASDIRECTED #30 tab 02/17/18 [Rx] Dicyclomine [Bentyl] 20 mg PO Q6H PRN #12 tablet 02/18/18 [Rx] Magnesium Chloride [Slow-Mag] 71.5 mg PO BID #60 tablet. 02/18/18 [Rx] Past Medical History HEENT History: Reports: Impaired Vision (Due to diabetic retinopathy. She has had vitrectomy on each eye.) Other HEENT History: Wears glasses Cardiovascular History: Reports: High Cholesterol, Hypertension Gastrointestinal History: Reports: None Genitourinary History: Reports: Chronic Renal Insuffiency, Diabetic Nephropathy Endocrine/Metabolic History: Reports: Diabetes, Type I (Type I diabetic 41 years. Complicated by diabetic retinopathy requiring vitrectomy 1 in each eye. Known renal insufficiency as well), Hypothyroidism (On 50 g of levothyroxine daily.), Obesity/BMI 30+ - Infectious Disease History Infectious Disease History: Reports: Chicken Pox - Past Surgical History HEENT Surgical History: Reports: Eye Surgery, Laser Surgery Cardiovascular Surgical History: Reports: None GI Surgical History: Reports: Colonoscopy Social & Family History - Family History Family Medical History: Noncontributory - Caffeine Use Caffeine Use: Reports: Coffee, Soda - Living Situation & Occupation Living situation: Reports: Occupation: Employed ED ROS GENERAL - Review of Systems Review Of Systems: See Below Constitutional: Reports: Weakness, Fatigue, Decreased Appetite (About 13 pounds over the last 2 weeks), Weight Loss. Denies: Fever, Chills, Malaise HEENT: Reports: Glasses, Other (Is visually impaired.) Respiratory: Reports: Cough Cardiovascular: Reports: Blood Pressure Problem, Dyspnea on Exertion. Denies: Chest Pain (Patient will cough without any sputum.), Claudication, Edema, Lightheadedness, Orthopnea (Pressures been running much higher than normal the last couple weeks) Endocrine: Reports: Fatigue GI/Abdominal: Reports: Abdominal Pain (Diffuse upper abdominal discomfort described as a burning discomfort.), Diarrhea (Tools were looser today but not watery.), Decreased Appetite, Nausea (Very rare vomiting. Nausea almost continuously.), Vomiting. Denies: Black Stool, Bloody Stool, Constipation, Difficulty Swallowing, Distension, Flatus, Hematemesis, Hematochezia, Melena, Other : Reports: Frequency Musculoskeletal: Reports: Back Pain, Joint Pain (Sometimes knees and hips.) Skin: Reports: Bruising (Just in the abdominal where she wall where she gives herself insulin shots.) Neurological: Reports: Dizziness, Weakness. Denies: Confusion, Headache, Numbness, Paresthesia, Pre-Existing Deficit, Seizure, Syncope, Tingling, Tremors , Trouble Speaking, Change in Speech, Gait Disturbance Psychiatric: Reports: Anxiety Hematologic/Lymphatic: Reports: No Symptoms (Component of anxiety was appreciated last admission with hyperventilation.) Immunologic: Reports: No Symptoms ED EXAM, GENERAL - Physical Exam Exam: See Below Exam Limited By: No Limitations General Appearance: Alert, WD/WN, No Apparent Distress Ear Exam: Left Ear: TM Dull (She has a left serous otitis media.), TM Bulging Nose: Nasal Swelling (Nasal turbinate swelling more so on the left as compared to the right compatible with allergic rhinitis.), Other Throat/Mouth: Normal Inspection, Normal Lips, Normal Teeth, Normal Oropharynx, Other (Can smell ketones on her breath.) Head: Atraumatic ( Once of infection), Normocephalic Neck: Normal Inspection, Supple, Non-Tender, Full Range of Motion. No: Carotid Bruit Respiratory/Chest: No Respiratory Distress, Lungs Clear, Normal Breath Sounds, Chest Non-Tender Cardiovascular: Normal Peripheral Pulses, Regular Rate, Rhythm, No Edema, No Gallop, No Murmur, No Rub Peripheral Pulses: 2+: Posterior Tibial (L), Posterior Tibial (R), Dorsalis Pedis (L), Dorsalis Pedis (R) GI/Abdominal: Normal Bowel Sounds, Soft, No Mass, Pelvis Stable, Tender ( Tenderness right upper quadrant with a positive Moon sign.), Other (No abdominal surgery scars.). No: Abnormal Bowel Sounds Back Exam: Normal Inspection, Full Range of Motion. No: CVA Tenderness (L), CVA Tenderness (R) Extremities: Normal Inspection, Normal Range of Motion, Non-Tender, No Pedal Edema, Other (Bruising and swelling both forearms and particularly left distal volar forearm where she had ABGs drawn last admission. Others) Neurological: Alert ( ones are IV and phlebotomy sticks.), Oriented, CN II-XII Intact, Normal Cognition, No Motor/Sensory Deficits Psychiatric: Normal Affect, Normal Mood Skin Exam: Warm, Dry, Intact, Normal Color, No Rash Course - Vital Signs Last Recorded V/S: Last Vital Signs Temp 36.5 C 02/18/18 16:56 Pulse 60 02/18/18 16:56 Resp 18 02/18/18 16:56 BP 189/78 H 02/18/18 16:56 Pulse Ox 100 02/18/18 16:56 - Orders/Labs/Meds Orders: Active Orders 24 hr Category Date Time Status Blood Glucose Check, Bedside [RC] ONETIME Care 02/18/18 17:54 Active EKG Documentation Completion [RC] STAT Care 02/18/18 17:54 Active Sodium Chloride 0.9% [Normal Saline] 1,000 ml Med 02/18/18 18:00 Active IV ASDIRECTED Medication Orders Sodium Chloride (Normal Saline) 1,000 mls @ 500 mls/hr IV ASDIRECTED WILLIAM Last Admin: 02/18/18 18:04 Dose: 500 mls/hr Labs: Laboratory Tests 06/25/18 06/25/18 06/25/18 Range/Units 18:08 18:08 18:08 WBC (3.98-10.04) K/mm3 RBC (3.98-5.22) M/mm3 Hgb (11.2-15.7) gm/L Hct (34.1-44.9) % MCV (79.4-94.8) fl MCH (25.6-32.2) pg MCHC (32.2-35.5) g/dl RDW Std Deviation (36.4-46.3) fL Plt Count (182-369) K/mm3 MPV (9.4-12.3) fl Neutrophils % (Manual) (40-60) % Band Neutrophils % (0-10) % Lymphocytes % (Manual) (20-40) % Atypical Lymphs % % Monocytes % (Manual) (2-10) % Eosinophils % (Manual) (0.7-5.8) % Basophils % (Manual) (0.1-1.2) Platelet Estimate Plt Morphology Comment RBC Morph Comment ESR 16 (0-20) mm/hr Sodium (136-145) mEq/L Potassium (3.5-5.1) mEq/L Chloride (98-107) mEq/L Carbon Dioxide (21-32) mEq/L Anion Gap (5-15) BUN (7-18) mg/dL Creatinine (0.55-1.02) mg/dL Est Cr Clr Drug Dosing mL/min Estimated GFR (MDRD) (>60) mL/min BUN/Creatinine Ratio (14-18) Glucose (74-106) mg/dL POC Glucose (70-105) mg/dL Calcium (8.5-10.1) mg/dL Magnesium 1.5 L (1.8-2.4) mg/dl Total Bilirubin (0.2-1.0) mg/dL AST (15-37) U/L ALT (14-59) U/L Alkaline Phosphatase (46-116) U/L C-Reactive Protein 0.2 (<1.0) mg/dL NT-Pro-B Natriuret Pep 265 H (0-125) pg/mL Total Protein (6.4-8.2) g/dl Albumin (3.4-5.0) g/dl Globulin gm/dL Albumin/Globulin Ratio (1-2) Lipase 71 L (73-393) U/L TSH 3rd Generation 2.751 (0.358-3.74) uIU/mL Ketones (0.0-0.3) mM H. pylori IgG Antibody Negative (NEGATIVE) 02/18/18 02/18/18 02/18/18 Range/Units 18:08 18:08 18:08 WBC 10.13 H (3.98-10.04) K/mm3 RBC 5.16 (3.98-5.22) M/mm3 Hgb 14.3 (11.2-15.7) gm/L Hct 40.6 (34.1-44.9) % MCV 78.7 L (79.4-94.8) fl MCH 27.7 (25.6-32.2) pg MCHC 35.2 (32.2-35.5) g/dl RDW Std Deviation 37.8 (36.4-46.3) fL Plt Count 298 (182-369) K/mm3 MPV 10.8 (9.4-12.3) fl Neutrophils % (Manual) 76 H (40-60) % Band Neutrophils % 0 (0-10) % Lymphocytes % (Manual) 19 L (20-40) % Atypical Lymphs % 0 % Monocytes % (Manual) 5 (2-10) % Eosinophils % (Manual) 0 L (0.7-5.8) % Basophils % (Manual) 0 L (0.1-1.2) Platelet Estimate Adequate Plt Morphology Comment Normal RBC Morph Comment Normal ESR (0-20) mm/hr Sodium 138 (136-145) mEq/L Potassium 4.2 (3.5-5.1) mEq/L Chloride 105 (98-107) mEq/L Carbon Dioxide 22 (21-32) mEq/L Anion Gap 15.2 H (5-15) BUN 10 (7-18) mg/dL Creatinine 0.7 (0.55-1.02) mg/dL Est Cr Clr Drug Dosing 85.56 mL/min Estimated GFR (MDRD) > 60 (>60) mL/min BUN/Creatinine Ratio 14.3 (14-18) Glucose 257 H (74-106) mg/dL POC Glucose (70-105) mg/dL Calcium 8.3 L (8.5-10.1) mg/dL Magnesium (1.8-2.4) mg/dl Total Bilirubin 0.7 (0.2-1.0) mg/dL AST 15 (15-37) U/L ALT 12 L (14-59) U/L Alkaline Phosphatase 88 (46-116) U/L C-Reactive Protein (<1.0) mg/dL NT-Pro-B Natriuret Pep (0-125) pg/mL Total Protein 6.7 (6.4-8.2) g/dl Albumin 3.3 L (3.4-5.0) g/dl Globulin 3.4 gm/dL Albumin/Globulin Ratio 1.0 (1-2) Lipase (73-393) U/L TSH 3rd Generation (0.358-3.74) uIU/mL Ketones 3.3 (0.0-0.3) mM H. pylori IgG Antibody (NEGATIVE) 02/18/18 Range/Units 18:20 WBC (3.98-10.04) K/mm3 RBC (3.98-5.22) M/mm3 Hgb (11.2-15.7) gm/L Hct (34.1-44.9) % MCV (79.4-94.8) fl MCH (25.6-32.2) pg MCHC (32.2-35.5) g/dl RDW Std Deviation (36.4-46.3) fL Plt Count (182-369) K/mm3 MPV (9.4-12.3) fl Neutrophils % (Manual) (40-60) % Band Neutrophils % (0-10) % Lymphocytes % (Manual) (20-40) % Atypical Lymphs % % Monocytes % (Manual) (2-10) % Eosinophils % (Manual) (0.7-5.8) % Basophils % (Manual) (0.1-1.2) Platelet Estimate Plt Morphology Comment RBC Morph Comment ESR (0-20) mm/hr Sodium (136-145) mEq/L Potassium (3.5-5.1) mEq/L Chloride (98-107) mEq/L Carbon Dioxide (21-32) mEq/L Anion Gap (5-15) BUN (7-18) mg/dL Creatinine (0.55-1.02) mg/dL Est Cr Clr Drug Dosing mL/min Estimated GFR (MDRD) (>60) mL/min BUN/Creatinine Ratio (14-18) Glucose (74-106) mg/dL POC Glucose 241 H (70-105) mg/dL Calcium (8.5-10.1) mg/dL Magnesium (1.8-2.4) mg/dl Total Bilirubin (0.2-1.0) mg/dL AST (15-37) U/L ALT (14-59) U/L Alkaline Phosphatase (46-116) U/L C-Reactive Protein (<1.0) mg/dL NT-Pro-B Natriuret Pep (0-125) pg/mL Total Protein (6.4-8.2) g/dl Albumin (3.4-5.0) g/dl Globulin gm/dL Albumin/Globulin Ratio (1-2) Lipase (73-393) U/L TSH 3rd Generation (0.358-3.74) uIU/mL Ketones (0.0-0.3) mM H. pylori IgG Antibody (NEGATIVE) Meds: Medications Generic Name Dose Route Start Last Admin Trade Name Freq PRN Reason Stop Dose Admin Sodium Chloride 1,000 mls @ 500 mls/hr 02/18/18 18:00 02/18/18 18:04 Normal Saline IV 500 mls/hr ASDIRECTED WILLIAM Administration Discontinued Medications Generic Name Dose Route Start Last Admin Trade Name Freq PRN Reason Stop Dose Admin Metoclopramide HCl 7.5 mg 02/18/18 17:59 02/18/18 18:04 Reglan IVPUSH 02/18/18 18:00 7.5 mg ONETIME ONE Administration - Radiology Interpretation Free Text/Narrative:: 52-year-old female presents to the ED after being discharged from hospital yesterday. She continues to have nausea and diffuse upper abdominal discomfort burning quality. Unable to eat at all today. Of note she is an insulin- dependent diabetic 41 years. It's not been established that she has a gastroparesis. He can smell ketones on her breath today. Lost 13 pounds of weight over the last 2 weeks of illness. All foods seem to make her not nauseated. The only finding on my examination was right upper quadrant abdominal tenderness suggestive of biliary colic. Has not appreciated pain in this area prior. She's had no previous abdominal surgeries. Plan IV normal saline at 500 mils per hour. Blood pressure remains quite elevated and I will keep an eye on this. Plan is routine labs ECG ultrasound of the gallbladder to be done. Ketones were ordered as well as a serum lipase and H. pylori. - Re-Assessments/Exams Free Text/Narrative Re-Assessment/Exam: 02/18/18 19:[address] from January 30 that I had ordered. It was a normal abdomen. No calcified gallstones were identified on that assessment. 02/18/18 19:42 Ultrasound of the liver and gallbladder reveal 2 hypoechoic abnormalities within the right lobe of the liver measuring 1.2 cm and 3.8 cm. These are poorly seen on prior CT exam even in retrospect due to lack of contrast these are most likely due to he hemangiomas. There is no intraductal dilatation. The gallbladder itself shows thin wall and no signs of stones. 02/18/18 19:43 Parts of her labs are back. Sedimentation rate is 16. Glucose is 241 at the bedside. Magnesium is low at 1.5. C-reactive protein is 0.2. BNP is 265 mildly elevated. Lipase is 71. TSH is 2.75 normal. Serum ketones are elevated at 3.3. H. pylori is negative. Chemistry and hematology are pending 02/18/18 20:01 Total white count is 10.13 with differential pending. Hemoglobin is 14.3 with hematocrit of 40.6. MCV is low at 78.7 suggesting iron deficiency. Platelet count is normal 298,000. Sodium was 138 with potassium of 4.2. Chloride is 105 with a bicarbonate of 22. Anion gap is minimally elevated at 15.2. BUN is 10 with a creatinine of 0.7. Glucose is 257 in the lab and 241 at the bedside. Liver function is otherwise normal. C-reactive protein is less than 0.2. Lipase is 71. 02/18/18 20:15 Discussed the findings with the patient. Working diagnosis is still likely a gastroparesis. I'm going to change her metoclopramide 10 mg 3 times a day from 5 mg 4 times a day in the hopes that this provides a more satisfactory response. She'll not take one at bedtime but ideally 6 hours in between meals. I will give her Bentyl tablets 20 mg to be used on a when necessary basis for recurrent upper abdominal pains. I strongly encourage her to have an upper GI endoscopy arranged to make sure we aren't missing anything within the stomach itself. Failing this a HIDA scan could be performed to completely rule out the gallbladder as any part of her abdominal pains and discomfort. I'm going to place her on Slow-Mag 1 tablet twice daily to improve her serum magnesium level. Advised her to seek out a multivitamin with zinc and low-dose iron as well and she is showing some signs of anemia. She will plan to follow-up with Dr. Chauhan as planned and will arrange tentatively a upper GI endoscopy with Dr. Anguiano. Departure - Departure Time of Disposition: 20:19 Disposition: Home, Self-Care 01 Condition: Fair Clinical Impression: Gastroparesis diabeticorum, Gastroparesis due to secondary diabetes Abdominal pain Qualifiers: Abdominal location: epigastric Qualified Code(s): R10.13 - Epigastric pain - Discharge Information Prescriptions: Dicyclomine [Bentyl] 20 mg PO Q6H PRN #12 tablet PRN Reason: Abdominal cramps/diarrhea Magnesium Chloride [Slow-Mag] 71.5 mg PO BID #60 tablet. Referrals: Kobe Maravilla MD [Primary Care Provider] - Forms: ED Department Discharge Additional Instructions: Evaluation in the emergency room tonight in regards to persistent upper abdominal discomfort/pain. Complete workup included a gallbladder ultrasound which showed thin-walled gallbladder with no evidence of any stones. The liver also appears to be within normal limits. Kidney on the right side also appears normal. Lab work revealed low iron levels and low serum magnesium levels. Blood sugar was 247 with mild ketones in your blood from not eating today. You received IV fluids in the emergency room and metoclopramide IV for nausea relief. It is still my belief that you're likely suffering from gastroparesis which means a partially paralyzed or paralyzed stomach that the [place] longer works well in. This means food considered in the stomach for a long period of time before his finally passed into the small bowel for absorption and indigestion. Normally the stomach is empty and 1-1/2-2 hours but he gastroparesis it can sometimes be 10-12 hours before the stomach empties. Suggest multiple meals throughout the day such as 5 times daily small quantities to help her stomach digest and turn the food a little bit easier. Suggest increasing your metoclopramide to 10 mg tablet every 6 hours half hour before each meal ideally. No tablet at bedtime. The only prescription I wrote was for magnesium supplement called Slow-Mag one tablet twice daily for the next month or so until you get back onto a regular diet and contains meet our major source of magnesium. Also suggest a multivitamin that contains zinc and iron to restore these levels to normal as well. I did write a prescription for medicine called Bentyl 20 mg tablet to be taken on an as-needed basis for recurrent upper abdominal pain. Again I strongly encourage you to seek out a upper GI endoscopy to make sure we are not missing anything within the stomach and first part of the small bowel. Dr. Anguiano at [facility] performs this procedure. - My Orders Last 24 Hours: My Active Orders 02/18/18 17:54 Blood Glucose Check, Bedside [RC] ONETIME EKG Documentation Completion [RC] STAT 02/18/18 18:00 Sodium Chloride 0.9% [Normal Saline] 1,000 ml IV ASDIRECTED - Assessment/Plan Last 24 Hours: My Active Orders 02/18/18 17:54 Blood Glucose Check, Bedside [RC] ONETIME EKG Documentation Completion [RC] STAT 02/18/18 18:00 Sodium Chloride 0.9% [Normal Saline] 1,000 ml IV ASDIRECTED
[2018-02-18] MEDS ORDERED: Metoclopramide 10 MG/2 ML SDV IVPUSH ONE (17:59)
[2018-02-18] MEDS ORDERED: Sodium Chloride 0.9% 1,000 ML IV SCH (18:00)
--- NOTE | 2018-02-18 19:36 | US ---
Limited abdominal ultrasound: Multiple real-time images were obtained of the upper right abdomen. Comparison: Prior noncontrast CT abdomen and pelvis exam dated 01/30/18. Findings: 2 hyperechoic abnormalities are seen within the right lobe of the liver measuring 1.2 cm in 3.8 cm. These are poorly seen on prior CT exam even in retrospect due to lack of contrast. These are most likely due to two hemangiomas. No additional abnormality is seen within the liver. Gallbladder contains no gallstones. No gallbladder wall thickening or biliary duct dilatation is seen. Right kidney shows no hydronephrosis or mass. Right kidney has a length of 12.7 cm. Pancreas is incompletely seen. Small portion of the visualized pancreas is unremarkable. Inferior vena cava is patent. Portal vein shows normal hepatopedal flow. Impression: 1. 2 hyperechoic lesions within the liver most likely representing hemangiomas. 2. No additional abnormality is appreciated on right upper quadrant abdominal ultrasound exam. Diagnostic code #2
== END 2018-02-18 20:45 | disposition home or self-care (01) ==
LOC: JD.ED 16:50
DX: E11.43 Type 2 diabetes mellitus with diabetic autonomic (poly)neuropathy (principal); K31.84 Gastroparesis; I12.9 Hypertensive chronic kidney disease with stage 1 through stage 4 chronic kidney disease, or unspecified chronic kidney disease; N18.9 Chronic kidney disease, unspecified; E11.21 Type 2 diabetes mellitus with diabetic nephropathy; E11.22 Type 2 diabetes mellitus with diabetic chronic kidney disease; E11.319 Type 2 diabetes mellitus with unspecified diabetic retinopathy without macular edema; E78.00 Pure hypercholesterolemia, unspecified; Z79.4 Long term (current) use of insulin; Z79.899 Other long term (current) drug therapy; Z79.82 Long term (current) use of aspirin
CPT/HCPCS: 36415; 76705; 80053; 82009; 82962; 83690; 83735; 83880; 84443; 85007; 85027; 85652; 86140; 86677; 93005; 96361; 96374; 99285; J2765; J7040; 99284

== ENCOUNTER 2018-11-28 20:37 | Emergency (ER) | payer BC ==
[2018-11-28] MEDS ORDERED: Aspirin 81 MG Tab.Chew PO ONE (20:51)
[2018-11-28] MEDS ORDERED: Sodium Chloride 0.9% 10 ML Syringe FLUSH PRN (20:51)
--- NOTE | 2018-11-28 21:48 | EDM.PDOC ---
ED HPI GENERAL MEDICAL PROBLEM - General Chief Complaint: Chest Pain Stated Complaint: CHEST PAIN Time Seen by Provider: 11/28/18 20:46 Source of Information: Reports: Patient History Limitations: Reports: No Limitations - History of Present Illness INITIAL COMMENTS - FREE TEXT/NARRATIVE: The patient presents with left sided chest pain. This has been going on since yesterday. The pain comes and goes. It is sharp at times and more intense at times. She denies any shortness of breath with the pain. She has no fever, chills or cough. She has no history of DVT, PE, swelling or pain in her legs. She has no nausea or vomiting. She was put on some eye drops and one side effect was chest pain however she talked to her ophtamologist and he said that is very rare to have chest pain with the medication and he advised her to come in and be checked. She has no history of heart problems. She does have diabetes, hypertension and hypercholesterolemia. Those are all under good control with medications. Onset: Gradual Duration: Day(s): (Yesterday) Location: Reports: Chest Quality: Reports: Sharp Severity: Moderate Improves with: Reports: None Worsens with: Reports: None Associated Symptoms: Reports: Chest Pain. Denies: Cough, Fever/Chills, Headaches, Nausea/Vomiting, Shortness of Breath Chest Pain Score (Numeric/FACES): 5 - Related Data Allergies Allergy/AdvReac Type Severity Reaction Status Date / Time No Known Allergies Allergy Verified 11/28/18 20:49 Home Meds: Home Meds Acetaminophen 500 mg PO DAILY PRN 02/16/18 [History] Acetaminophen/oxyCODONE [Percocet 325-5 MG] 1 - 2 tab PO DAILY PRN 02/16/18 [ History] Aspirin [Adult Low Dose Aspirin EC] 81 mg PO DAILY 02/16/18 [History] Gabapentin [Neurontin] 1,200 mg PO BEDTIME 02/16/18 [History] Insulin Aspart [NovoLOG] 6 units SQ ACBREAKFAST 02/16/18 [History] Insulin Aspart [Novolog Flexpen] 8 units SQ ACLUNCH 02/16/18 [History] Insulin Aspart [Novolog Flexpen] 12 units SQ ACDINNER 02/16/18 [History] Insulin Glargine,Hum.Rec.Anlog [Toujeo Solostar] 21 unit SQ 0930 02/16/18 [ History] Levothyroxine [Synthroid] 50 mcg PO DAILY 02/16/18 [History] Lisinopril 20 mg PO DAILY 02/16/18 [History] atorvaSTATin [Lipitor] 10 mg PO DAILY 02/16/18 [History] Metoclopramide [Reglan] 5 mg PO ASDIRECTED #30 tab 02/17/18 [Rx] Dicyclomine [Bentyl] 20 mg PO Q6H PRN #12 tablet 02/18/18 [Rx] Magnesium Chloride [Slow-Mag] 71.5 mg PO BID #60 tablet. 02/18/18 [Rx] Past Medical History HEENT History: Reports: Impaired Vision Other HEENT History: Wears glasses Cardiovascular History: Reports: High Cholesterol, Hypertension Gastrointestinal History: Reports: None Genitourinary History: Reports: Chronic Renal Insuffiency, Diabetic Nephropathy Endocrine/Metabolic History: Reports: Diabetes, Type I, Hypothyroidism, Obesity/ BMI 30+ - Infectious Disease History Infectious Disease History: Reports: Chicken Pox - Past Surgical History HEENT Surgical History: Reports: Eye Surgery, Laser Surgery Cardiovascular Surgical History: Reports: None GI Surgical History: Reports: Colonoscopy Social & Family History - Family History Family Medical History: Noncontributory - Tobacco Use Smoking Status *Q: Never Smoker - Caffeine Use Caffeine Use: Reports: Coffee, Soda - Recreational Drug Use Recreational Drug Use: No - Living Situation & Occupation Living situation: Reports: Occupation: Employed ED ROS GENERAL - Review of Systems Review Of Systems: See Below Constitutional: Reports: No Symptoms HEENT: Reports: No Symptoms Respiratory: Reports: No Symptoms Cardiovascular: Reports: Chest Pain Endocrine: Reports: No Symptoms GI/Abdominal: Reports: No Symptoms : Reports: No Symptoms Musculoskeletal: Reports: No Symptoms ED EXAM, GENERAL - Physical Exam Exam: See Below Exam Limited By: No Limitations General Appearance: Alert, No Apparent Distress Ears: Normal External Exam Nose: Normal Inspection Head: Atraumatic, Normocephalic Neck: Normal Inspection Respiratory/Chest: No Respiratory Distress, Lungs Clear, Normal Breath Sounds Cardiovascular: Regular Rate, Rhythm, No Edema, No Murmur GI/Abdominal: Soft, Non-Tender, No Organomegaly, No Mass Extremities: Normal Inspection EKG INTERPRETATION EKG Date: 11/28/18 Time: 20:50 Rhythm: NSR Rate (Beats/Min): 61 [place]: LAD-Left [place] Deviation P-Wave: Present QRS: Normal ST-T: Normal QT: Normal Comparison: No Change EKG Interpretation Comments: Q waves in the anterior and inferior leads Course - Vital Signs Last Recorded V/S: Last Vital Signs Temp 98.5 F 11/28/18 20:50 Pulse 70 11/28/18 20:50 Resp 18 11/28/18 20:50 BP 212/90 H 11/28/18 20:50 Pulse Ox 99 11/28/18 20:50 - Orders/Labs/Meds Orders: Active Orders 24 hr Category Date Time Status Cardiac Monitoring [RC] . DIRECTED Care 11/28/18 20:51 Active EKG 12 Lead [EKG Documentation Completion] [RC] STAT Care 11/28/18 20:46 Active Peripheral IV Care [RC] . DIRECTED Care 11/28/18 20:51 Active Chest 1V Frontal [CR] Stat Exams 11/28/18 20:51 Taken Sodium Chloride 0.9% [Saline Flush] Med 11/28/18 20:51 Active 10 ml FLUSH ASDIRECTED PRN Peripheral IV Insertion Adult [OM.PC] Stat Oth 11/28/18 20:51 Ordered Medication Orders Sodium Chloride (Saline Flush) 10 ml FLUSH ASDIRECTED PRN PRN Reason: Keep Vein Open Last Admin: 11/28/18 21:02 Dose: 10 ml Labs: Laboratory Tests 11/28/18 11/28/18 11/28/18 Range/Units 20:40 20:40 20:40 WBC 6.76 (3.98-10.04) K/mm3 RBC 5.09 (3.98-5.22) M/mm3 Hgb 14.2 (11.2-15.7) gm/L Hct 40.4 (34.1-44.9) % MCV 79.4 (79.4-94.8) fl MCH 27.9 (25.6-32.2) pg MCHC 35.1 (32.2-35.5) g/dl RDW Std Deviation 37.2 (36.4-46.3) fL Plt Count 237 (182-369) K/mm3 MPV 10.2 (9.4-12.3) fl Neut % (Auto) 60.9 (34.0-71.1) % Lymph % (Auto) 30.2 (19.3-51.7) % [place] % (Auto) 8.7 (4.7-12.5) % Eos % (Auto) 0 L (0.7-5.8) Baso % (Auto) 0.1 (0.1-1.2) % Neut # (Auto) 4.11 (1.56-6.13) K/mm3 Lymph # (Auto) 2.04 (1.18-3.74) K/mm3 [place] # (Auto) 0.59 H (0.24-0.36) K/mm3 Eos # (Auto) 0.00 L (0.04-0.36) K/mm3 Baso # (Auto) 0.01 (0.01-0.08) K/mm3 D-Dimer, Quantitative 0.45 (0.19-0.50) mg/L Sodium 142 (136-145) mEq/L Potassium 3.4 L (3.5-5.1) mEq/L Chloride 105 (98-107) mEq/L Carbon Dioxide 29 (21-32) mEq/L Anion Gap 11.4 (5-15) BUN 13 (7-18) mg/dL Creatinine 0.8 (0.55-1.02) mg/dL Est Cr Clr Drug Dosing 74.02 mL/min Estimated GFR (MDRD) > 60 (>60) mL/min BUN/Creatinine Ratio 16.3 (14-18) Glucose 173 H (74-106) mg/dL Calcium 9.0 (8.5-10.1) mg/dL Total Bilirubin 0.4 (0.2-1.0) mg/dL AST 14 L (15-37) U/L ALT 20 (14-59) U/L Alkaline Phosphatase 114 (46-116) U/L Troponin I < 0.017 (0.00-0.056) ng/mL Total Protein 7.3 (6.4-8.2) g/dl Albumin 3.6 (3.4-5.0) g/dl Globulin 3.7 gm/dL Albumin/Globulin Ratio 1.0 (1-2) Meds: Medications Generic Name Dose Route Start Last Admin Trade Name Freq PRN Reason Stop Dose Admin Sodium Chloride 10 ml 11/28/18 20:51 11/28/18 21:02 Saline Flush FLUSH 10 ml ASDIRECTED PRN Administration Keep Vein Open Discontinued Medications Generic Name Dose Route Start Last Admin Trade Name Bren PRN Reason Stop Dose Admin Aspirin 324 mg 11/28/18 20:51 11/28/18 21:02 Aspirin PO 11/28/18 20:52 324 mg ONETIME ONE Administration - Re-Assessments/Exams Free Text/Narrative Re-Assessment/Exam: 11/28/18 21:58 I ordered an IV saline lock, aspirin, EKG, CXR and labs. Her EKG shows a NSR with no acute changes. Her CBC looks good. Her D-dimer was negative. Her troponin was normal. Her K was a little low at 3.4. Her glucose was 173. 11/28/18 22:08 She feels better. I will discharge her home. Departure - Departure Time of Disposition: 22:10 Disposition: Home, Self-Care 01 Condition: Good Clinical Impression: Atypical chest pain Referrals: Kobe Maravilla MD [Primary Care Provider] - 1 Week Forms: ED Department Discharge, ED Return to Work/School Form Additional Instructions: Stop the eye drops for a day or two like your opthamologist suggested. Take tylenol or motrin for any pain. Please return if you are worse. - My Orders Last 24 Hours: My Active Orders 11/28/18 20:46 EKG 12 Lead [EKG Documentation Completion] [RC] STAT 11/28/18 20:51 Cardiac Monitoring [RC] . DIRECTED Peripheral IV Care [RC] . DIRECTED Chest 1V Frontal [CR] Stat Sodium Chloride 0.9% [Saline Flush] 10 ml FLUSH ASDIRECTED PRN Peripheral IV Insertion Adult [OM.PC] Stat - Assessment/Plan Last 24 Hours: My Active Orders 11/28/18 20:46 EKG 12 Lead [EKG Documentation Completion] [RC] STAT 11/28/18 20:51 Cardiac Monitoring [RC] . DIRECTED Peripheral IV Care [RC] . DIRECTED Chest 1V Frontal [CR] Stat Sodium Chloride 0.9% [Saline Flush] 10 ml FLUSH ASDIRECTED PRN Peripheral IV Insertion Adult [OM.PC] Stat
--- NOTE | 2018-11-29 06:47 | CR ---
Chest: Portable view of the chest was obtained. Comparison: Prior chest x-ray of 02/15/18. Heart size and mediastinum are normal. Lungs are clear. Bony structures are grossly intact. Impression: 1. Nothing acute is seen on portable chest x-ray. Diagnostic code #1
== END 2018-11-28 22:18 | disposition home or self-care (01) ==
LOC: JD.ED 20:37
DX: R07.89 Other chest pain (principal); E78.00 Pure hypercholesterolemia, unspecified; I12.9 Hypertensive chronic kidney disease with stage 1 through stage 4 chronic kidney disease, or unspecified chronic kidney disease; N18.9 Chronic kidney disease, unspecified; Z79.899 Other long term (current) drug therapy
CPT/HCPCS: 36415; 71045; 80053; 84484; 85025; 85379; 93005; 99285; A9270; 93010; 99284

== ENCOUNTER 2019-02-08 08:47 | Emergency (ER) | payer BC ==
[2019-02-08] MEDS ORDERED: HYDROmorphone 1 MG/ML Syringe IVPUSH ONE (10:20)
[2019-02-08] MEDS ORDERED: Metoclopramide 10 MG/2 ML SDV IVPUSH ONE (10:21)
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
[2019-02-08] MEDS ORDERED: Sodium Chloride 0.9% 1,000 ML IV SCH (10:30)
[2019-02-08] MEDS ORDERED: Ketorolac 30 MG/ML SDV IVPUSH SCH (10:30)
[2019-02-08] MEDS ORDERED: methylPREDNISolone Sodium Succinate 125 MG/2 ML SDV IVPUSH ONE (12:09)
--- NOTE | 2019-02-10 10:42 | CR ---
Right knee: AP and lateral views of the right knee were obtained. Joint effusion is present. Medial and lateral joint compartments are maintained in height. Right patellofemoral joint is within normal limits. Impression: 1. Joint effusion. 2. No acute bony abnormality is seen on right knee exam. Diagnostic code #3
--- NOTE | 2019-02-10 10:42 | CR ---
Left knee: AP, lateral and bilateral sunrise patellar views were obtained. Comparison: No prior left knee exam. No left-sided joint effusion is seen. Medial and lateral joint compartments are maintained in height. No fracture or other bony abnormality is seen. Impression: 1. No abnormality is identified on left knee exam. Diagnostic code #1
== END 2019-02-08 12:30 | disposition home or self-care (01) ==
LOC: JD.ED 08:47
DX: M25.562 Pain in left knee (principal); M11.261 Other chondrocalcinosis, right knee; I10 Essential (primary) hypertension; E78.00 Pure hypercholesterolemia, unspecified; E03.9 Hypothyroidism, unspecified; E10.42 Type 1 diabetes mellitus with diabetic polyneuropathy; Z79.899 Other long term (current) drug therapy
CPT/HCPCS: 36415; 73562; 80053; 84550; 85007; 85027; 85652; 86140; 96361; 96374; 96375; 99283; J1170; J1885; J2765; J2930; J7040; 99284

== ENCOUNTER 2020-09-14 10:01 | Emergency (ER) | payer BC ==
[2020-09-14] MEDS ORDERED: Sodium Chloride 0.9% 10 ML Syringe FLUSH PRN (10:32)
[2020-09-14] MEDS ORDERED: hydrALAZINE 20 MG/ML SDV IVPUSH ONE (10:46)
--- NOTE | 2020-09-14 11:15 | CT ---
Head CT Technique: Multiple axial sections through the brain were obtained. Intravenous contrast was not utilized. Reconstructed coronal and sagittal images were also obtained. Comparison: No prior intracranial imaging is available. Findings: Ventricles along with basal cisterns and sulci over the convexities appear within normal limits for the patient's age. No abnormal parenchymal densities are seen. No evidence of intracranial hemorrhage. No midline shift or mass-effect is appreciated. Bone window settings were reviewed. Visualized mastoid sinuses and paranasal sinuses show nothing acute. There is minimal carotid artery calcification being seen within the carotid siphon. No acute calvarial finding is appreciated. Impression: 1. Very minimal senescent change as noted above. 2. Nothing acute is appreciated on noncontrast head CT exam. Diagnostic code #2
[2020-09-14] MEDS ORDERED: Ketorolac 30 MG/ML SDV IVPUSH ONE (11:17)
--- NOTE | 2020-09-14 11:20 | CR ---
Chest: Portable view of the chest was obtained. Comparison: Prior chest x-ray of 11/28/18. Heart size and mediastinum are within normal limits for portable technique. Lungs are clear with no acute parenchymal change. Bony structures appear grossly intact. Impression: 1. Nothing acute is appreciated on portable chest x-ray. Diagnostic code #1
--- NOTE | 2020-09-14 11:23 | EDM.PDOC ---
ED HPI GENERAL MEDICAL PROBLEM - General Chief Complaint: Chest Pain Stated Complaint: CHEST PAIN/HIGH BP Time Seen by Provider: 09/14/20 10:20 Source of Information: Reports: Patient History Limitations: Reports: No Limitations - History of Present Illness INITIAL COMMENTS - FREE TEXT/NARRATIVE: 55-year-old male female presents to the emergency department complaints of chest pressure radiating to her left chest left jaw and left shoulder. Patient states this developed this morning while she was at work. 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 She states at that time someone did check her blood pressure and they just told her that it was elevated and that she should probably go to the hospital. On presentation to the [facility] emergency department the patient's blood pressure is 206/82. She states she was in to see Dr. Avila about 2 months ago regarding some palpitations that she was frequently having. She was having these palpitations this morning when she developed the chest pain also having some diaphoresis but denied any nausea or vomiting associated with this. She states she does have a history of hypertension and high cholesterol for which she takes lisinopril 20 mg daily and atorvastatin. Patient states she did develop a pretty exquisite headache last evening for which she took 2 Tylenol but that did not really help. Of note patient states she does have a history of migraine headaches but has not had one for several years. Left Chest Pain Score (Numeric/FACES): 7 - Related Data Allergies Allergy/AdvReac Type Severity Reaction Status Date / Time No Known Allergies Allergy Verified 09/14/20 10:13 Home Meds: Home Meds Levothyroxine [Synthroid] 50 mcg PO DAILY 02/16/18 [History] Lisinopril 20 mg PO DAILY 02/16/18 [History] atorvaSTATin [Lipitor] 10 mg PO DAILY 02/16/18 [History] Insulin Aspart [NovoLOG] 2 unit SQ ASDIRECTED 09/14/20 [History] Timolol [Betimol] 1 ml EYEBOTH BEDTIME 09/14/20 [History] hydroCHLOROthiazide [Hydrochlorothiazide] 25 mg PO DAILY 09/14/20 [History] Past Medical History HEENT History: Reports: Impaired Vision Other HEENT History: Wears glasses Cardiovascular History: Reports: High Cholesterol, Hypertension Gastrointestinal History: Reports: None Genitourinary History: Reports: Chronic Renal Insuffiency, Diabetic Nephropathy Neurological History: Reports: Neuropathy, Peripheral Endocrine/Metabolic History: Reports: Diabetes, Type I, Hypothyroidism, Obesity/BMI 30+ - Infectious Disease History Infectious Disease History: Reports: Chicken Pox - Past Surgical History HEENT Surgical History: Reports: Eye Surgery, Laser Surgery, Oral Surgery GI Surgical History: Reports: Colonoscopy Social & Family History - Family History Family Medical History: No Pertinent Family History - Tobacco Use Tobacco Use Status *Q: Never Tobacco User - Caffeine Use Caffeine Use: Reports: Coffee, Soda - Recreational Drug Use Recreational Drug Use: No - Living Situation & Occupation Living situation: Reports: Occupation: Employed ED ROS GENERAL - Review of Systems Review Of Systems: See Below Constitutional: Reports: Fatigue, Diaphoresis HEENT: Reports: No Symptoms, Glasses Respiratory: Reports: No Symptoms. Denies: Shortness of Breath, Cough Cardiovascular: Reports: Chest Pain, Blood Pressure Problem, Palpitations. Denies: Edema, Syncope Endocrine: Reports: No Symptoms GI/Abdominal: Reports: No Symptoms. Denies: Nausea, Vomiting : Reports: No Symptoms Musculoskeletal: Reports: No Symptoms Skin: Reports: No Symptoms Neurological: Reports: Headache (Patient has a history of migraines. But has not had one for several years.) Psychiatric: Reports: No Symptoms Hematologic/Lymphatic: Reports: No Symptoms Immunologic: Reports: No Symptoms ED EXAM, GENERAL - Physical Exam Exam: See Below Exam Limited By: No Limitations General Appearance: Alert, WD/WN, Anxious Eye Exam: Bilateral Eye: PERRL Ears: Hearing Grossly Normal Nose: Normal Inspection Throat/Mouth: Normal Inspection, Normal Voice, No Airway Compromise Head: Atraumatic, Normocephalic Neck: Normal Inspection, Supple, Non-Tender, Full Range of Motion Respiratory/Chest: No Respiratory Distress, Lungs Clear, Normal Breath Sounds, No Accessory Muscle Use. No: Chest Non-Tender (Left chest wall is tender with palpation.) Cardiovascular: Normal Peripheral Pulses, Regular Rate, Rhythm, No Edema, No Murmur Peripheral Pulses: 2+: Radial (L), Radial (R), Dorsalis Pedis (L), Dorsalis Pedis (R) GI/Abdominal: Normal Bowel Sounds, Soft, Non-Tender, No Distention (Female) Exam: Deferred Rectal (Female) Exam: Deferred Back Exam: Normal Inspection, Full Range of Motion Extremities: Normal Inspection, Normal Range of Motion, Non-Tender, No Pedal Edema, Normal Capillary Refill Neurological: Alert, Oriented, Normal Cognition Psychiatric: Normal Affect, Anxious Skin Exam: Warm, Dry, Intact, Normal Color, No Rash Lymphatic: No Adenopathy #1 Interpretation EKG Date: 09/14/20 Time: 10:10 Rhythm: NSR Rate (Beats/Min): 63 [place]: Normal P-Wave: Present QRS: Normal ST-T: Normal QT: Normal Comparison: NA - No Prior EKG EKG Interpretation Comments: EKG per Dr. 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 Course - Vital Signs Text/Narrative:: Even though patient does have a history of migraine headaches, it has been several years since she had 1 and she states that the headache that she had last evening was the most severe she ever has. So I have ordered a CT of the head. Also ordered a CBC, CMP, magnesium, troponin, EKG, and a chest x-ray. Last Recorded V/S: Last Vital Signs Temp 98.6 F 09/14/20 10:10 Pulse 64 09/14/20 10:10 Resp 21 H 09/14/20 10:10 BP 206/82 H 09/14/20 10:10 Pulse Ox 96 09/14/20 10:10 - Orders/Labs/Meds Orders: Active Orders 24 hr Category Date Time Status EKG Documentation Completion [RC] STAT Care 09/14/20 10:32 Active Sodium Chloride 0.9% [Saline Flush] Med 09/14/20 10:32 Active 10 ml FLUSH ASDIRECTED PRN Saline Lock Insert [OM.PC] Stat Oth 09/14/20 10:32 Ordered Medication Orders Sodium Chloride (Saline Flush) 10 ml FLUSH ASDIRECTED PRN PRN Reason: Keep Vein Open Last Admin: 09/14/20 11:13 Dose: 10 ml Documented by: YOLANDA Labs: Laboratory Tests 09/14/20 09/14/20 Range/Units 10:20 10:20 WBC 6.85 (3.98-10.04) K/mm3 RBC 5.07 (3.98-5.22) M/mm3 Hgb 14.2 (11.2-15.7) gm/dl Hct 42.3 (34.1-44.9) % MCV 83.4 (79.4-94.8) fl MCH 28.0 (25.6-32.2) pg MCHC 33.6 (32.2-35.5) g/dl RDW Std Deviation 40.3 (36.4-46.3) fL Plt Count 274 (182-369) K/mm3 MPV 10.6 (9.4-12.3) fl Neut % (Auto) 59.8 (34.0-71.1) % Lymph % (Auto) 30.5 (19.3-51.7) % [place] % (Auto) 8.0 (4.7-12.5) % Eos % (Auto) 1.3 (0.7-5.8) Baso % (Auto) 0.4 (0.1-1.2) % Neut # (Auto) 4.09 (1.56-6.13) K/mm3 Lymph # (Auto) 2.09 (1.18-3.74) K/mm3 [place] # (Auto) 0.55 H (0.24-0.36) K/mm3 Eos # (Auto) 0.09 (0.04-0.36) K/mm3 Baso # (Auto) 0.03 (0.01-0.08) K/mm3 Sodium 145 (136-145) mEq/L Potassium 3.6 (3.5-5.1) mEq/L Chloride 107 (98-107) mEq/L Carbon Dioxide 29 (21-32) mEq/L Anion Gap 12.6 (5-15) BUN 11 (7-18) mg/dL Creatinine 0.7 (0.55-1.02) mg/dL Est Cr Clr Drug Dosing 82.67 mL/min Estimated GFR (MDRD) > 60 (>60) mL/min BUN/Creatinine Ratio 15.7 (14-18) Glucose 104 (74-106) mg/dL Calcium 9.1 (8.5-10.1) mg/dL Magnesium 1.8 (1.8-2.4) mg/dl Total Bilirubin 0.6 (0.2-1.0) mg/dL AST 15 (15-37) U/L ALT 16 (14-59) U/L Alkaline Phosphatase 72 (46-116) U/L Troponin I < 0.017 (0.00-0.056) ng/mL Total Protein 7.2 (6.4-8.2) g/dl Albumin 3.6 (3.4-5.0) g/dl Globulin 3.6 gm/dL Albumin/Globulin Ratio 1.0 (1-2) Meds: Medications Generic Name Dose Route Start Last Admin Trade Name Bren PRN Reason Stop Dose Admin Sodium Chloride 10 ml 09/14/20 10:32 09/14/20 11:13 Saline Flush FLUSH 10 ml ASDIRECTED PRN Administration Keep Vein Open Discontinued Medications Generic Name Dose Route Start Last Admin Trade Name Freq PRN Reason Stop Dose Admin Hydralazine HCl 10 mg 09/14/20 10:46 09/14/20 11:11 Apresoline IVPUSH 09/14/20 10:47 10 mg ONETIME ONE Administration Ketorolac Tromethamine 30 mg 09/14/20 11:17 09/14/20 12:02 Toradol IVPUSH 09/14/20 11:18 30 mg ONETIME ONE Administration - Radiology Interpretation Free Text/Narrative:: Head CT radiologist impression: 1. Very minimal senescent changes as noted above. 2. Nothing acute is appreciated on noncontrast head CT. Portable view of the chest radiologist impression: 1. Nothing acute is appreciated on portable chest x-ray. - Re-Assessments/Exams Free Text/Narrative Re-Assessment/Exam: 09/14/20 11:23 Patient also received hydralazine 10 mg IV for hypertension. 09/14/20 11:24 Labs reveal CBC that is unremarkable, chemistry reveals sodium 145, potassium 3.6, BUN 11, creatinine 0.7, magnesium 1.8, troponin less than 0.017, Still complaining of a severe headache so I have ordered for her to receive Toradol 30 mg IV x1 dose. 09/14/20 12:18 Patient reports that she is feeling much better than when she came in. Because pain is reproducible with palpitation I suspect it is not due to anything cardiac in origin. Recommend that the patient takes ibuprofen 600 mg every 6 hours for the next 48 hours to see if this helps. And that she follow-up with her primary care physician Dr. Avila within the next week or so. Departure - Departure Time of Disposition: 12:23 Disposition: Home, Self-Care 01 Condition: Good Clinical Impression: Atypical chest pain Instructions: Nonspecific Chest Pain, Adult, [id number] Referrals: Kobe Maravilla MD [Primary Care Provider] - Forms: ED Department Discharge Additional Instructions: You with complaints of headache pain that started last evening and chest pressure that started today while you are at work. Full cardiac work-up was completed. Lab work was unremarkable as well as chest x-ray, and head CT. You were given Toradol in your IV for your headache pain and you did report that this seemed to help. You can take ibuprofen 600 mg every 6 hours for the next 48 hours to help with the discomfort in your left chest wall. Can also use ice or heat for comfort. Recommend that you follow-up in the clinic with Dr. Avila within the week.. Should your condition worsen or change please return to the emergency department. Sepsis Event Note (ED) - Evaluation Sepsis Screening Result: No Definite Risk - Focused Exam Vital Signs: Vital Signs Temp Pulse Resp BP Pulse Ox 09/14/20 10:10 98.6 F 64 21 H 206/82 H 96 - My Orders Last 24 Hours: My Active Orders 09/14/20 10:32 EKG Documentation Completion [RC] STAT Sodium Chloride 0.9% [Saline Flush] 10 ml FLUSH ASDIRECTED PRN Saline Lock Insert [OM.PC] Stat - Assessment/Plan Last 24 Hours: My Active Orders 09/14/20 10:32 EKG Documentation Completion [RC] STAT Sodium Chloride 0.9% [Saline Flush] 10 ml FLUSH ASDIRECTED PRN Saline Lock Insert [OM.PC] Stat
== END 2020-09-14 12:48 | disposition home or self-care (01) ==
LOC: JD.ED 10:01
DX: R07.89 Other chest pain (principal); E78.00 Pure hypercholesterolemia, unspecified; I12.9 Hypertensive chronic kidney disease with stage 1 through stage 4 chronic kidney disease, or unspecified chronic kidney disease; N18.9 Chronic kidney disease, unspecified; E10.22 Type 1 diabetes mellitus with diabetic chronic kidney disease; E03.9 Hypothyroidism, unspecified; E10.42 Type 1 diabetes mellitus with diabetic polyneuropathy; E10.21 Type 1 diabetes mellitus with diabetic nephropathy; E66.9 Obesity, unspecified; Z68.34 Body mass index [BMI] 34.0-34.9, adult; Z79.899 Other long term (current) drug therapy
CPT/HCPCS: 36415; 70450; 70450-26; 71045; 71045-26; 80053; 83735; 84484; 85025; 93005; 93010; 96374; 96375; 99284; 99285-25; J0360; J1885

== ENCOUNTER 2020-11-23 10:42 | Inpatient (IN) | payer BC ==
[2020-11-23] MEDS ORDERED: Sodium Chloride 0.9% 10 ML Syringe FLUSH PRN (11:12)
[2020-11-23] MEDS ORDERED: Sodium Chloride 0.9% 1,000 ML IV STA ×3 (11:23→13:47)
[2020-11-23] MEDS ORDERED: Magnesium Sulfate/Water 2 GM/50 ML BAG IV SCH (12:15)
[2020-11-23] MEDS ORDERED: Magnesium Sulfate/Water 2 GM/50 ML BAG IV ONE (12:16)
--- NOTE | 2020-11-23 12:52 | EDM.PDOC ---
ED HPI GENERAL MEDICAL PROBLEM - General Chief Complaint: Diabetic Complaint Stated Complaint: HIGH BLOOD SUGAR/BLURRED VISION/BODY ACHES Time Seen by Provider: 11/23/20 10:59 Source of Information: Reports: Patient, RN Notes Reviewed History Limitations: Reports: No Limitations - History of Present Illness INITIAL COMMENTS - FREE TEXT/NARRATIVE: Patient is a 55-year-old female presenting to the emergency department with complaints of body aches, blurred vision, and elevated blood sugars. She is a type I diabetic on an insulin pump. She states she was sick with a viral ga stroenteritis on Sunday symptoms redeveloped on Sunday. She had nausea, vomiting, and diarrhea associated with this. She states during her illness, her blood sugars were "perfect"; however, last evening they margo and she has been unable to get them below 300 since that time. At the time of my exam, her blood sugar showed 297 on her pump. Bedside glucose showed greater than 400 on our monitor. Patient denies any nausea or vomiting at this time. She has had no further diarrhea. Her insulin is a basal rate of 2 units/h with automatic boluses as indicated by CGM. She has had a number of automatic boluses in the range of 2 to 3 units throughout the morning. She also manually bolused herself 4 units of insulin at this morning. She states since she has had her insulin pump, she has had no problems with elevated blood sugars. Denies any history of DKA. Headache Pain Score (Numeric/FACES): 0 - Related Data Allergies Allergy/AdvReac Type Severity Reaction Status Date / Time No Known Allergies Allergy Verified 11/23/20 17:37 Home Meds: Home Meds Levothyroxine [Synthroid] 50 mcg PO DAILY 02/16/18 [History] Lisinopril 20 mg PO DAILY 02/16/18 [History] atorvaSTATin [Lipitor] 10 mg PO DAILY 02/16/18 [History] Insulin Aspart [NovoLOG] 2 unit SQ ASDIRECTED 09/14/20 [History] Timolol [Betimol] 1 ml EYEBOTH BEDTIME 09/14/20 [History] Past Medical History HEENT History: Reports: Impaired Vision Other HEENT History: Wears glasses Cardiovascular History: Reports: High Cholesterol, Hypertension Gastrointestinal History: Reports: None Genitourinary History: Reports: Chronic Renal Insuffiency, Diabetic Nephropathy Neurological History: Reports: Neuropathy, Peripheral Endocrine/Metabolic History: Reports: Diabetes, Type I, Hypothyroidism, Obesity/BMI 30+ - Infectious Disease History Infectious Disease History: Reports: Chicken Pox - Past Surgical History HEENT Surgical History: Reports: Eye Surgery, Laser Surgery, Oral Surgery Cardiovascular Surgical History: Reports: None GI Surgical History: Reports: Colonoscopy Social & Family History - Family History Family Medical History: No Pertinent Family History - Caffeine Use Caffeine Use: Reports: Coffee, Soda - Living Situation & Occupation Living situation: Reports: Occupation: Employed ED ROS GENERAL - Review of Systems Review Of Systems: See Below Constitutional: Reports: Fatigue. Denies: Fever, Chills HEENT: Reports: Vision Change Respiratory: Reports: No Symptoms Cardiovascular: Reports: No Symptoms Endocrine: Reports: No Symptoms GI/Abdominal: Reports: No Symptoms. Denies: Abdominal Pain, Diarrhea, Nausea, Vomiting : Reports: No Symptoms Musculoskeletal: Reports: Other (Generalized body aches) Skin: Reports: No Symptoms Neurological: Reports: No Symptoms Psychiatric: Reports: No Symptoms Hematologic/Lymphatic: Reports: No Symptoms Immunologic: Reports: No Symptoms ED EXAM GENERAL NO PERIP PULSE - Physical Exam Exam: See Below Exam Limited By: No Limitations General Appearance: Alert, WD/WN, No Apparent Distress Eye Exam: Bilateral Eye: Normal Inspection, PERRL Respiratory/Chest: No Respiratory Distress, Lungs Clear, Normal Breath Sounds, No Accessory Muscle Use, Chest Non-Tender Cardiovascular: Normal Peripheral Pulses, Regular Rate, Rhythm, No Edema, No Gallop, No JVD, No Murmur, No Rub GI/Abdominal: Normal Bowel Sounds, Soft, Non-Tender, No Organomegaly, No Distention, No Abnormal Bruit, No Mass Neurological: Alert, Oriented, CN II-XII Intact, Normal Cognition, Normal Gait, Normal Reflexes, No Motor/Sensory Deficits Psychiatric: Normal Affect, Normal Mood Skin Exam: Warm, Dry, Intact, Normal Color, No Rash Course - Vital Signs Last Recorded V/S: Last Vital Signs Temp 97.9 F 11/24/20 08:00 Pulse 78 11/23/20 17:31 Resp 14 11/24/20 08:00 BP 139/64 11/24/20 08:00 Pulse Ox 98 11/24/20 08:00 - Orders/Labs/Meds Labs: Laboratory Tests 11/23/20 11/23/20 11/23/20 Range/Units 11:12 11:20 11:20 WBC 12.40 H (3.98-10.04) K/mm3 RBC 5.10 (3.98-5.22) M/mm3 Hgb 14.1 (11.2-15.7) gm/dl Hct 41.8 (34.1-44.9) % MCV 82.0 (79.4-94.8) fl MCH 27.6 (25.6-32.2) pg MCHC 33.7 (32.2-35.5) g/dl RDW Std Deviation 41.4 (36.4-46.3) fL Plt Count 225 (182-369) K/mm3 MPV 10.6 (9.4-12.3) fl Neut % (Auto) 89.9 H (34.0-71.1) % Lymph % (Auto) 6.9 L (19.3-51.7) % [place] % (Auto) 2.8 L (4.7-12.5) % Eos % (Auto) 0 L (0.7-5.8) Baso % (Auto) 0.2 (0.1-1.2) % Neut # (Auto) 11.14 H (1.56-6.13) K/mm3 Lymph # (Auto) 0.86 L (1.18-3.74) K/mm3 [place] # (Auto) 0.35 (0.24-0.36) K/mm3 Eos # (Auto) 0.00 L (0.04-0.36) K/mm3 Baso # (Auto) 0.02 (0.01-0.08) K/mm3 Manual Slide Review Abnormal smear Puncture Site Rt radial ABG pH 7.35 (7.35-7.45) ABG pCO2 25.2 L (35.0-45.0) mmHg ABG pO2 102.0 H (80.0-100.0) mmHg ABG HCO3 13.5 L (22.0-26.0) meq/L ABG O2 Saturation 97.7 H (96.0-97.0) % ABG Base Excess -10.3 L (-2-2.0) Romario Test Positive O2 Delivery Device Room air Sodium 135 L D (136-145) mEq/L Potassium 3.9 (3.5-5.1) mEq/L Chloride 98 (98-107) mEq/L Carbon Dioxide 18 L D (21-32) mEq/L Anion Gap 22.9 H (5-15) BUN 24 H (7-18) mg/dL Creatinine 1.2 H (0.55-1.02) mg/dL Est Cr Clr Drug Dosing TNP Estimated GFR (MDRD) 47 (>60) mL/min BUN/Creatinine Ratio 20.0 H (14-18) Glucose 413 H (74-106) mg/dL POC Glucose (70-105) mg/dL Calcium 9.2 (8.5-10.1) mg/dL Magnesium 1.6 L (1.8-2.4) mg/dl Total Bilirubin 0.7 (0.2-1.0) mg/dL AST 15 (15-37) U/L ALT 14 (14-59) U/L Alkaline Phosphatase 88 (46-116) U/L C-Reactive Protein 2.6 H* (<1.0) mg/dL Total Protein 7.4 (6.4-8.2) g/dl Albumin 3.6 (3.4-5.0) g/dl Globulin 3.8 gm/dL Albumin/Globulin Ratio 1.0 (1-2) Urine Color (Yellow) Urine Appearance (Clear) Urine pH (5.0-8.0) Ur Specific [place] (1.005-1.030) Urine Protein (Negative) Urine Glucose (UA) (Negative) Urine Ketones (Negative) Urine Occult Blood (Negative) Urine Nitrite (Negative) Urine Bilirubin (Negative) Urine Urobilinogen (0.2-1.0) Ur Leukocyte Esterase (Negative) Urine RBC (0-5) /hpf Urine WBC (0-5) /hpf Ur Epithelial Cells (0-5) /hpf Urine Bacteria (FEW) /hpf Urine Mucus (FEW) /hpf Ketones (0.0-0.3) mM SARS-CoV-2 RNA (SALLY) (NEGATIVE) 11/23/20 11/23/20 11/23/20 Range/Units 11:20 11:30 11:43 WBC (3.98-10.04) K/mm3 RBC (3.98-5.22) M/mm3 Hgb (11.2-15.7) gm/dl Hct (34.1-44.9) % MCV (79.4-94.8) fl MCH (25.6-32.2) pg MCHC (32.2-35.5) g/dl RDW Std Deviation (36.4-46.3) fL Plt Count (182-369) K/mm3 MPV (9.4-12.3) fl Neut % (Auto) (34.0-71.1) % Lymph % (Auto) (19.3-51.7) % [place] % (Auto) (4.7-12.5) % Eos % (Auto) (0.7-5.8) Baso % (Auto) (0.1-1.2) % Neut # (Auto) (1.56-6.13) K/mm3 Lymph # (Auto) (1.18-3.74) K/mm3 [place] # (Auto) (0.24-0.36) K/mm3 Eos # (Auto) (0.04-0.36) K/mm3 Baso # (Auto) (0.01-0.08) K/mm3 Manual Slide Review Puncture Site ABG pH (7.35-7.45) ABG pCO2 (35.0-45.0) mmHg ABG pO2 (80.0-100.0) mmHg ABG HCO3 (22.0-26.0) meq/L ABG O2 Saturation (96.0-97.0) % ABG Base Excess (-2-2.0) Romario Test O2 Delivery Device Sodium (136-145) mEq/L Potassium (3.5-5.1) mEq/L Chloride (98-107) mEq/L Carbon Dioxide (21-32) mEq/L Anion Gap (5-15) BUN (7-18) mg/dL Creatinine (0.55-1.02) mg/dL Est Cr Clr Drug Dosing Estimated GFR (MDRD) (>60) mL/min BUN/Creatinine Ratio (14-18) Glucose (74-106) mg/dL POC Glucose (70-105) mg/dL Calcium (8.5-10.1) mg/dL Magnesium (1.8-2.4) mg/dl Total Bilirubin (0.2-1.0) mg/dL AST (15-37) U/L ALT (14-59) U/L Alkaline Phosphatase (46-116) U/L C-Reactive Protein (<1.0) mg/dL Total Protein (6.4-8.2) g/dl Albumin (3.4-5.0) g/dl Globulin gm/dL Albumin/Globulin Ratio (1-2) Urine Color Yellow (Yellow) Urine Appearance Clear (Clear) Urine pH 5.5 (5.0-8.0) Ur Specific [place] 1.025 (1.005-1.030) Urine Protein Negative (Negative) Urine Glucose (UA) 2+ H (Negative) Urine Ketones 4+ H (Negative) Urine Occult Blood Trace-lysed H (Negative) Urine Nitrite Negative (Negative) Urine Bilirubin Negative (Negative) Urine Urobilinogen 0.2 (0.2-1.0) Ur Leukocyte Esterase Negative (Negative) Urine RBC 0-5 (0-5) /hpf Urine WBC 0-5 (0-5) /hpf Ur Epithelial Cells 0-5 (0-5) /hpf Urine Bacteria Few (FEW) /hpf Urine Mucus Not seen (FEW) /hpf Ketones 1.00 (0.0-0.3) mM SARS-CoV-2 RNA (SALLY) Negative (NEGATIVE) 11/23/20 11/23/20 11/23/20 Range/Units 13:33 14:08 15:00 WBC (3.98-10.04) K/mm3 RBC (3.98-5.22) M/mm3 Hgb (11.2-15.7) gm/dl Hct (34.1-44.9) % MCV (79.4-94.8) fl MCH (25.6-32.2) pg MCHC (32.2-35.5) g/dl RDW Std Deviation (36.4-46.3) fL Plt Count (182-369) K/mm3 MPV (9.4-12.3) fl Neut % (Auto) (34.0-71.1) % Lymph % (Auto) (19.3-51.7) % [place] % (Auto) (4.7-12.5) % Eos % (Auto) (0.7-5.8) Baso % (Auto) (0.1-1.2) % Neut # (Auto) (1.56-6.13) K/mm3 Lymph # (Auto) (1.18-3.74) K/mm3 [place] # (Auto) (0.24-0.36) K/mm3 Eos # (Auto) (0.04-0.36) K/mm3 Baso # (Auto) (0.01-0.08) K/mm3 Manual Slide Review Puncture Site ABG pH (7.35-7.45) ABG pCO2 (35.0-45.0) mmHg ABG pO2 (80.0-100.0) mmHg ABG HCO3 (22.0-26.0) meq/L ABG O2 Saturation (96.0-97.0) % ABG Base Excess (-2-2.0) Romario Test O2 Delivery Device Sodium 142 (136-145) mEq/L Potassium 3.8 (3.5-5.1) mEq/L Chloride 107 (98-107) mEq/L Carbon Dioxide 16 L (21-32) mEq/L Anion Gap 22.8 H (5-15) BUN 22 H (7-18) mg/dL Creatinine 1.0 (0.55-1.02) mg/dL Est Cr Clr Drug Dosing TNP Estimated GFR (MDRD) 58 (>60) mL/min BUN/Creatinine Ratio 22.0 H (14-18) Glucose 295 H (74-106) mg/dL POC Glucose 346 H 350 H (70-105) mg/dL Calcium 7.8 L (8.5-10.1) mg/dL Magnesium (1.8-2.4) mg/dl Total Bilirubin (0.2-1.0) mg/dL AST (15-37) U/L ALT (14-59) U/L Alkaline Phosphatase (46-116) U/L C-Reactive Protein (<1.0) mg/dL Total Protein (6.4-8.2) g/dl Albumin (3.4-5.0) g/dl Globulin gm/dL Albumin/Globulin Ratio (1-2) Urine Color (Yellow) Urine Appearance (Clear) Urine pH (5.0-8.0) Ur Specific [place] (1.005-1.030) Urine Protein (Negative) Urine Glucose (UA) (Negative) Urine Ketones (Negative) Urine Occult Blood (Negative) Urine Nitrite (Negative) Urine Bilirubin (Negative) Urine Urobilinogen (0.2-1.0) Ur Leukocyte Esterase (Negative) Urine RBC (0-5) /hpf Urine WBC (0-5) /hpf Ur Epithelial Cells (0-5) /hpf Urine Bacteria (FEW) /hpf Urine Mucus (FEW) /hpf Ketones (0.0-0.3) mM SARS-CoV-2 RNA (SALLY) (NEGATIVE) 11/23/20 11/23/20 Range/Units 15:20 15:35 WBC (3.98-10.04) K/mm3 RBC (3.98-5.22) M/mm3 Hgb (11.2-15.7) gm/dl Hct (34.1-44.9) % MCV (79.4-94.8) fl MCH (25.6-32.2) pg MCHC (32.2-35.5) g/dl RDW Std Deviation (36.4-46.3) fL Plt Count (182-369) K/mm3 MPV (9.4-12.3) fl Neut % (Auto) (34.0-71.1) % Lymph % (Auto) (19.3-51.7) % [place] % (Auto) (4.7-12.5) % Eos % (Auto) (0.7-5.8) Baso % (Auto) (0.1-1.2) % Neut # (Auto) (1.56-6.13) K/mm3 Lymph # (Auto) (1.18-3.74) K/mm3 [place] # (Auto) (0.24-0.36) K/mm3 Eos # (Auto) (0.04-0.36) K/mm3 Baso # (Auto) (0.01-0.08) K/mm3 Manual Slide Review Puncture Site Rt radial ABG pH 7.28 L (7.35-7.45) ABG pCO2 25.3 L (35.0-45.0) mmHg ABG pO2 102.0 H (80.0-100.0) mmHg ABG HCO3 11.6 L (22.0-26.0) meq/L ABG O2 Saturation 97.0 (96.0-97.0) % ABG Base Excess -13.5 L (-2-2.0) Romario Test Positive O2 Delivery Device Room air Sodium (136-145) mEq/L Potassium (3.5-5.1) mEq/L Chloride (98-107) mEq/L Carbon Dioxide (21-32) mEq/L Anion Gap (5-15) BUN (7-18) mg/dL Creatinine (0.55-1.02) mg/dL Est Cr Clr Drug Dosing Estimated GFR (MDRD) (>60) mL/min BUN/Creatinine Ratio (14-18) Glucose (74-106) mg/dL POC Glucose 250 H (70-105) mg/dL Calcium (8.5-10.1) mg/dL Magnesium (1.8-2.4) mg/dl Total Bilirubin (0.2-1.0) mg/dL AST (15-37) U/L ALT (14-59) U/L Alkaline Phosphatase (46-116) U/L C-Reactive Protein (<1.0) mg/dL Total Protein (6.4-8.2) g/dl Albumin (3.4-5.0) g/dl Globulin gm/dL Albumin/Globulin Ratio (1-2) Urine Color (Yellow) Urine Appearance (Clear) Urine pH (5.0-8.0) Ur Specific [place] (1.005-1.030) Urine Protein (Negative) Urine Glucose (UA) (Negative) Urine Ketones (Negative) Urine Occult Blood (Negative) Urine Nitrite (Negative) Urine Bilirubin (Negative) Urine Urobilinogen (0.2-1.0) Ur Leukocyte Esterase (Negative) Urine RBC (0-5) /hpf Urine WBC (0-5) /hpf Ur Epithelial Cells (0-5) /hpf Urine Bacteria (FEW) /hpf Urine Mucus (FEW) /hpf Ketones (0.0-0.3) mM SARS-CoV-2 RNA (SALLY) (NEGATIVE) Meds: Medications Discontinued Medications Generic Name Dose Route Start Last Admin Trade Name Freq PRN Reason Stop Dose Admin Acetaminophen 650 mg 11/23/20 22:59 11/23/20 23:23 Acetaminophen 325 Mg Tab PO 650 mg Q4H PRN Administration Pain/Fever Benzocaine/Menthol 1 lozenge 11/23/20 22:55 11/23/20 23:23 Benzocaine/Cetylpyridinium/Menthol Lozenge MUCMEM 1 lozenge Q4HR PRN Administration Sore Throat Enoxaparin Sodium 40 mg 11/24/20 09:00 11/24/20 08:04 Enoxaparin 40 Mg/0.4 Ml Syringe SUBCUT 40 mg DAILY WILLIAM Administration Sodium Chloride 1,000 mls @ 999 mls/hr 11/23/20 11:23 11/23/20 11:32 Normal Saline IV 11/23/20 12:23 999 mls/hr NOW STA Administration Sodium Chloride 1,000 mls @ 999 mls/hr 11/23/20 12:14 11/23/20 12:40 Normal Saline IV 11/23/20 13:14 999 mls/hr NOW STA Administration Insulin Human Regular 100 unit 100 mls @ 3 mls/hr 11/23/20 12:15 11/23/20 22:30 / Sodium Chloride IV 0 unit/hr TITRATE WILLIAM 0 mls/hr Titration Protocol 3 UNIT/HR Magnesium Sulfate 2 gm in 50 mls @ 25 mls/hr 11/23/20 12:15 11/23/20 12:26 Magnesium Sulfate In Water 2 Gm/50 Ml IV Not Given Q1H WILLIAM Magnesium Sulfate 2 gm in 50 mls @ 25 mls/hr 11/23/20 12:16 11/23/20 12:35 Magnesium Sulfate In Water 2 Gm/50 Ml IV 11/23/20 14:15 25 mls/hr ONETIME ONE Administration Sodium Chloride 1,000 mls @ 999 mls/hr 11/23/20 13:47 11/23/20 14:12 Normal Saline IV 11/23/20 14:47 999 mls/hr NOW STA Administration Lactated Ringer's 1,000 mls @ 999 mls/hr 11/23/20 15:45 11/23/20 16:10 Ringers, Lactated IV 999 mls/hr ASDIRECTED WILLIAM Administration Dextrose/Sodium Chloride 1,000 mls @ 150 mls/hr 11/23/20 16:45 11/23/20 16:50 Dextrose 5%-Normal Saline IV 150 mls/hr ASDIRECTED WILLIAM Administration Potassium Chloride 10 meq/ 100 mls @ 100 mls/hr 11/23/20 17:30 11/23/20 18:46 Premix IV 11/23/20 19:29 100 mls/hr Q1H WILLIAM Administration Potassium Chloride/Dextrose/Sod Cl 1,000 mls @ 150 mls/hr 11/23/20 17:15 11/23/20 22:30 D5 1/2 Ns W/ 20 Meq/L Kcl IV 0 mls/hr ASDIRECTED WILLIAM Infusion Magnesium Sulfate 2 gm/ Premix 50 mls @ 25 mls/hr 11/24/20 07:07 11/24/20 07:58 IV 11/24/20 09:06 25 mls/hr ONETIME ONE Administration Insulin Human Lispro 5 unit 11/24/20 04:51 11/24/20 05:01 Insulin Lispro 100 Unit/Ml SUBCUT 11/24/20 04:52 5 units ONETIME ONE Administration Insulin Human Lispro 5 unit 11/24/20 06:52 11/24/20 07:09 Insulin Lispro 100 Unit/Ml SUBCUT 11/24/20 06:53 5 units ONETIME ONE Administration Levothyroxine Sodium 50 mcg 11/24/20 06:00 Levothyroxine 50 Mcg Tab PO ACBREAKFAST WILLIAM Ondansetron HCl 4 mg 11/23/20 17:08 Ondansetron 4 Mg/2 Ml Sdv IV Q4H PRN Nausea/Vomiting Sodium Chloride 10 ml 11/23/20 11:12 11/23/20 11:19 Sodium Chloride 0.9% 10 Ml Syringe FLUSH 10 ml ASDIRECTED PRN Administration Keep Vein Open Timolol Maleate 0 ml 11/24/20 21:00 Timolol Maleate 0.5% Ophth Soln 5 Ml Bottle EYEBOTH BEDTIME WILLIAM - Re-Assessments/Exams Free Text/Narrative Re-Assessment/Exam: Patient is a 55-year-old female presenting to the emergency department with complaints of elevated blood sugars, body aches, and blurred vision. She was ill with gastroenteritis symptoms this weekend, however the nausea, vomiting, diarrhea resolved Sunday evening. Last evening she started having elevated blood sugars and has been able to get them down using her insulin pump. Bedside glucose completed on triage showed greater than 400. At the time of my exam, her CGM showed 297 for blood sugar. Exam is grossly unremarkable. I have order ed work-up including CBC, CMP, CRP, serum ketones, magnesium, urinalysis, and ABG. We will start a bolus of 1 L of normal saline while we await results. 11/23/20 12:15 Hematology significant for WBC minimally elevated at 12.4, sodium 135, CO2 18, anion gap 22.9, BUN 24, creatinine 1.2, glucose 413, magnesium 1.6, CRP 2.6. Urinalysis shows 2+ glucose, 4+ ketones, and trace lysed occult blood. ABG reveals pH 7.35, PCO2 25.2, PO2 102.0, HCO3 13.5, O2 saturation 97.7. This is consistent with a fully compensated metabolic acidosis. Serum ketones are pending, however given lab results received thus far, patient is in a mild diabetic ketoacidosis. We will attempt to correct this in the emergency department without requiring admission as patient is having no nausea or vomiting at this time. She has turned off her insulin pump per my request. I have ordered an insulin drip at 3 units/h, magnesium 2 g IV, and another liter of NS bolus. Ordered bedside glucose checks every 30 minutes. Nursing staff was updated to notify me if patient's blood sugar drops to 150 as we will change her to IV fluids of D5 NS. Plan will be to recheck a BMP at 1500. 11/23/20 15:51 Repeat BMP shows sodium normal at 142, potassium 3.8, CO2 has decreased to 16, anion gap essentially unchanged at 22.8, BUN 22, creatinine at 1.0, last bedside glucose was 250. Insulin drip is currently running at 4.5 units/h. Patient is on her fourth liter of IV fluids which was switched to LR. Unfortunately, patient's labs are not correcting as anticipated, therefore admission will be required. Spoke to hospitalist, Dr. Abad. He has accepted the patient for admission into the ICU. Discussed this plan with the patient and she is in agreement. Departure - Departure Time of Disposition: 15:51 Disposition: Admitted As Inpatient 67 Condition: Good Clinical Impression: DKA (diabetic ketoacidoses) Qualifiers: Diabetes mellitus type: type 1 Diabetes mellitus complication detail: without coma Qualified Code(s): E10.10 - Type 1 diabetes mellitus with ketoacidosis without coma - Discharge Information Sepsis Event Note (ED) - Evaluation Sepsis Screening Result: No Definite Risk
[2020-11-23] MEDS ORDERED: Lactated Ringers 1,000 ML IV SCH (15:45)
[2020-11-23] MEDS ORDERED: Dextrose 5%-0.9% NaCl 1,000 ML IV SCH (16:45)
[2020-11-23] MEDS ORDERED: Ondansetron 4 MG/2 ML SDV IV PRN (17:08)
[2020-11-23] MEDS ORDERED: D5 1/2 NS w/ 20 mEq/L KCl 1,000 ML IV SCH (17:15)
[2020-11-23] MEDS: Potassium Chloride 10 MEQ in Premix Bag 1 BAG IV SCH ×2 (17:19→18:46)
--- NOTE | 2020-11-23 17:29 | PCM.HP.2 ---
H&P History of Present Illness - General Date of Service: 11/23/20 Admit Problem/Dx: Admission Diagnosis/Problem Admission Diagnosis/Problem Diabetic ketoacidosis - History of Present Illness Initial Comments - Free Text/Narative: 55-year-old female with type 1 diabetes presents to the emergency department after developing nausea and vomiting with diarrhea 3 days ago. On Sunday night patient developed the above symptoms a few hours after her developed the same symptoms. No known other contact, but they did eat chicken which they felt may be the cause of the gastroenteritis. Patient's symptoms c ontinued throughout the next day but she did feel better today and did go to work. Unfortunately, her blood sugars have been consistently elevated over the last 3 days and she was above 300 which is very unusual for her when she presented to the emergency department her blood sugars were in the upper 200s and a metabolic panel showed it as high as 413. Patient does have a continuous glucose monitor and insulin pump. He did give herself an extra insulin bolus and had automatic boluses. Lab work when she arrived in the emergency department showed an anion gap of 22.9 with a bicarb of 18. PCO2 is 25 with a normal pH showing a compensated metabolic acidosis. Fortunately ketones were only 1. Magnesium was slightly low at 1.6 which was corrected in the emergency department. Slight leukocytosis of 12.4 likely stress. - Related Data Allergies/Adverse Reactions: Allergies Allergy/AdvReac Type Severity Reaction Status Date / Time No Known Allergies Allergy Verified 09/14/20 10:13 Home Medications: Home Meds Levothyroxine [Synthroid] 50 mcg PO DAILY 02/16/18 [History] Lisinopril 20 mg PO DAILY 02/16/18 [History] atorvaSTATin [Lipitor] 10 mg PO DAILY 02/16/18 [History] Insulin Aspart [NovoLOG] 2 unit SQ ASDIRECTED 09/14/20 [History] Timolol [Betimol] 1 ml EYEBOTH BEDTIME 09/14/20 [History] hydroCHLOROthiazide [Hydrochlorothiazide] 25 mg PO DAILY 09/14/20 [History] Past Medical History HEENT History: Reports: Impaired Vision Other HEENT History: Wears glasses Cardiovascular History: Reports: High Cholesterol, Hypertension Gastrointestinal History: Reports: None Genitourinary History: Reports: Chronic Renal Insuffiency, Diabetic Nephropathy Neurological History: Reports: Neuropathy, Peripheral Endocrine/Metabolic History: Reports: Diabetes, Type I, Hypothyroidism, Obesity/BMI 30+ - Infectious Disease History Infectious Disease History: Reports: Chicken Pox - Past Surgical History HEENT Surgical History: Reports: Eye Surgery, Laser Surgery, Oral Surgery Cardiovascular Surgical History: Reports: None GI Surgical History: Reports: Colonoscopy Social & Family History - Family History Family Medical History: No Pertinent Family History - Tobacco Use Tobacco Use Status *Q: Never Tobacco User - Caffeine Use Caffeine Use: Reports: Coffee, Soda - Recreational Drug Use Recreational Drug Use: No - Living Situation & Occupation Living situation: Reports: Occupation: Employed H&P Review of Systems - Review of Systems: Review Of Systems: Comprehensive ROS is negative, except as noted in HPI. Exam - Exam Exam: See Below - Vital Signs Vital Signs: Last Vital Signs Temp 98.2 F 11/23/20 11:22 Pulse 88 11/23/20 16:42 Resp 16 11/23/20 16:42 BP 142/63 H 11/23/20 16:42 Pulse Ox 98 11/23/20 16:42 Weight: 200 lb - Exam Quality Assessment: No: Supplemental Oxygen General: Alert, Oriented, 4 HEENT: Conjunctiva Clear, Mucosa Moist & [place], Normal Nasal Septum, Posterior Pharynx Clear Neck: Supple, Trachea Midline, 2 Lungs: Clear to Auscultation, Normal Respiratory Effort Cardiovascular: Regular Rate, Regular Rhythm, Normal S1, Normal S2, Systolic Murmur GI/Abdominal Exam: Normal Bowel Sounds, Soft, Non-Tender, No Organomegaly, No Distention, No Abnormal Bruit Back Exam: Normal Inspection Extremities: Normal Inspection, Normal Range of Motion, Non-Tender, No Pedal Edema, Normal Capillary Refill Peripheral Pulses: 2+: Posterior Tibial (L), Posterior Tibial (R), Dorsalis Pedis (L), Dorsalis Pedis (R) Skin: Warm, Dry, Intact Neurological: Cranial Nerves Intact Neuro Extensive - Mental Status: Alert, Oriented x3, Normal Mood/Affect, Normal Cognition, Memory Intact Neuro Extensive - Motor, Sensory, Reflexes: CN II-XII Intact Psychiatric: Alert, Normal Affect, Normal Mood - Patient Data Lab Results Last 24 hrs: Laboratory Results - last 24 hr 11/23/20 11/23/20 11/23/20 Range/Units 11:12 11:20 11:20 WBC 12.40 H (3.98-10.04) K/mm3 RBC 5.10 (3.98-5.22) M/mm3 Hgb 14.1 (11.2-15.7) gm/dl Hct 41.8 (34.1-44.9) % MCV 82.0 (79.4-94.8) fl MCH 27.6 (25.6-32.2) pg MCHC 33.7 (32.2-35.5) g/dl RDW Std Deviation 41.4 (36.4-46.3) fL Plt Count 225 (182-369) K/mm3 MPV 10.6 (9.4-12.3) fl Neut % (Auto) 89.9 H (34.0-71.1) % Lymph % (Auto) 6.9 L (19.3-51.7) % [place] % (Auto) 2.8 L (4.7-12.5) % Eos % (Auto) 0 L (0.7-5.8) Baso % (Auto) 0.2 (0.1-1.2) % Neut # (Auto) 11.14 H (1.56-6.13) K/mm3 Lymph # (Auto) 0.86 L (1.18-3.74) K/mm3 [place] # (Auto) 0.35 (0.24-0.36) K/mm3 Eos # (Auto) 0.00 L (0.04-0.36) K/mm3 Baso # (Auto) 0.02 (0.01-0.08) K/mm3 Manual Slide Review Abnormal smear Puncture Site Rt radial ABG pH 7.35 (7.35-7.45) ABG pCO2 25.2 L (35.0-45.0) mmHg ABG pO2 102.0 H (80.0-100.0) mmHg ABG HCO3 13.5 L (22.0-26.0) meq/L ABG O2 Saturation 97.7 H (96.0-97.0) % ABG Base Excess -10.3 L (-2-2.0) Romario Test Positive O2 Delivery Device Room air Sodium 135 L D (136-145) mEq/L Potassium 3.9 (3.5-5.1) mEq/L Chloride 98 (98-107) mEq/L Carbon Dioxide 18 L D (21-32) mEq/L Anion Gap 22.9 H (5-15) BUN 24 H (7-18) mg/dL Creatinine 1.2 H (0.55-1.02) mg/dL Est Cr Clr Drug Dosing TNP Estimated GFR (MDRD) 47 (>60) mL/min BUN/Creatinine Ratio 20.0 H (14-18) Glucose 413 H (74-106) mg/dL POC Glucose (70-105) mg/dL Calcium 9.2 (8.5-10.1) mg/dL Magnesium 1.6 L (1.8-2.4) mg/dl Total Bilirubin 0.7 (0.2-1.0) mg/dL AST 15 (15-37) U/L ALT 14 (14-59) U/L Alkaline Phosphatase 88 (46-116) U/L C-Reactive Protein 2.6 H* (<1.0) mg/dL Total Protein 7.4 (6.4-8.2) g/dl Albumin 3.6 (3.4-5.0) g/dl Globulin 3.8 gm/dL Albumin/Globulin Ratio 1.0 (1-2) Urine Color (Yellow) Urine Appearance (Clear) Urine pH (5.0-8.0) Ur Specific [place] (1.005-1.030) Urine Protein (Negative) Urine Glucose (UA) (Negative) Urine Ketones (Negative) Urine Occult Blood (Negative) Urine Nitrite (Negative) Urine Bilirubin (Negative) Urine Urobilinogen (0.2-1.0) Ur Leukocyte Esterase (Negative) Urine RBC (0-5) /hpf Urine WBC (0-5) /hpf Ur Epithelial Cells (0-5) /hpf Urine Bacteria (FEW) /hpf Urine Mucus (FEW) /hpf Ketones (0.0-0.3) mM SARS-CoV-2 RNA (SALLY) (NEGATIVE) 11/23/20 11/23/20 11/23/20 Range/Units 11:20 11:30 11:43 WBC (3.98-10.04) K/mm3 RBC (3.98-5.22) M/mm3 Hgb (11.2-15.7) gm/dl Hct (34.1-44.9) % MCV (79.4-94.8) fl MCH (25.6-32.2) pg MCHC (32.2-35.5) g/dl RDW Std Deviation (36.4-46.3) fL Plt Count (182-369) K/mm3 MPV (9.4-12.3) fl Neut % (Auto) (34.0-71.1) % Lymph % (Auto) (19.3-51.7) % [place] % (Auto) (4.7-12.5) % Eos % (Auto) (0.7-5.8) Baso % (Auto) (0.1-1.2) % Neut # (Auto) (1.56-6.13) K/mm3 Lymph # (Auto) (1.18-3.74) K/mm3 [place] # (Auto) (0.24-0.36) K/mm3 Eos # (Auto) (0.04-0.36) K/mm3 Baso # (Auto) (0.01-0.08) K/mm3 Manual Slide Review Puncture Site ABG pH (7.35-7.45) ABG pCO2 (35.0-45.0) mmHg ABG pO2 (80.0-100.0) mmHg ABG HCO3 (22.0-26.0) meq/L ABG O2 Saturation (96.0-97.0) % ABG Base Excess (-2-2.0) Romario Test O2 Delivery Device Sodium (136-145) mEq/L Potassium (3.5-5.1) mEq/L Chloride (98-107) mEq/L Carbon Dioxide (21-32) mEq/L Anion Gap (5-15) BUN (7-18) mg/dL Creatinine (0.55-1.02) mg/dL Est Cr Clr Drug Dosing Estimated GFR (MDRD) (>60) mL/min BUN/Creatinine Ratio (14-18) Glucose (74-106) mg/dL POC Glucose (70-105) mg/dL Calcium (8.5-10.1) mg/dL Magnesium (1.8-2.4) mg/dl Total Bilirubin (0.2-1.0) mg/dL AST (15-37) U/L ALT (14-59) U/L Alkaline Phosphatase (46-116) U/L C-Reactive Protein (<1.0) mg/dL Total Protein (6.4-8.2) g/dl Albumin (3.4-5.0) g/dl Globulin gm/dL Albumin/Globulin Ratio (1-2) Urine Color Yellow (Yellow) Urine Appearance Clear (Clear) Urine pH 5.5 (5.0-8.0) Ur Specific [place] 1.025 (1.005-1.030) Urine Protein Negative (Negative) Urine Glucose (UA) 2+ H (Negative) Urine Ketones 4+ H (Negative) Urine Occult Blood Trace-lysed H (Negative) Urine Nitrite Negative (Negative) Urine Bilirubin Negative (Negative) Urine Urobilinogen 0.2 (0.2-1.0) Ur Leukocyte Esterase Negative (Negative) Urine RBC 0-5 (0-5) /hpf Urine WBC 0-5 (0-5) /hpf Ur Epithelial Cells 0-5 (0-5) /hpf Urine Bacteria Few (FEW) /hpf Urine Mucus Not seen (FEW) /hpf Ketones 1.00 (0.0-0.3) mM SARS-CoV-2 RNA (SALLY) Negative (NEGATIVE) 11/23/20 11/23/20 11/23/20 Range/Units 13:33 14:08 15:00 WBC (3.98-10.04) K/mm3 RBC (3.98-5.22) M/mm3 Hgb (11.2-15.7) gm/dl Hct (34.1-44.9) % MCV (79.4-94.8) fl MCH (25.6-32.2) pg MCHC (32.2-35.5) g/dl RDW Std Deviation (36.4-46.3) fL Plt Count (182-369) K/mm3 MPV (9.4-12.3) fl Neut % (Auto) (34.0-71.1) % Lymph % (Auto) (19.3-51.7) % [place] % (Auto) (4.7-12.5) % Eos % (Auto) (0.7-5.8) Baso % (Auto) (0.1-1.2) % Neut # (Auto) (1.56-6.13) K/mm3 Lymph # (Auto) (1.18-3.74) K/mm3 [place] # (Auto) (0.24-0.36) K/mm3 Eos # (Auto) (0.04-0.36) K/mm3 Baso # (Auto) (0.01-0.08) K/mm3 Manual Slide Review Puncture Site ABG pH (7.35-7.45) ABG pCO2 (35.0-45.0) mmHg ABG pO2 (80.0-100.0) mmHg ABG HCO3 (22.0-26.0) meq/L ABG O2 Saturation (96.0-97.0) % ABG Base Excess (-2-2.0) Romario Test O2 Delivery Device Sodium 142 (136-145) mEq/L Potassium 3.8 (3.5-5.1) mEq/L Chloride 107 (98-107) mEq/L Carbon Dioxide 16 L (21-32) mEq/L Anion Gap 22.8 H (5-15) BUN 22 H (7-18) mg/dL Creatinine 1.0 (0.55-1.02) mg/dL Est Cr Clr Drug Dosing TNP Estimated GFR (MDRD) 58 (>60) mL/min BUN/Creatinine Ratio 22.0 H (14-18) Glucose 295 H (74-106) mg/dL POC Glucose 346 H 350 H (70-105) mg/dL Calcium 7.8 L (8.5-10.1) mg/dL Magnesium (1.8-2.4) mg/dl Total Bilirubin (0.2-1.0) mg/dL AST (15-37) U/L ALT (14-59) U/L Alkaline Phosphatase (46-116) U/L C-Reactive Protein (<1.0) mg/dL Total Protein (6.4-8.2) g/dl Albumin (3.4-5.0) g/dl Globulin gm/dL Albumin/Globulin Ratio (1-2) Urine Color (Yellow) Urine Appearance (Clear) Urine pH (5.0-8.0) Ur Specific [place] (1.005-1.030) Urine Protein (Negative) Urine Glucose (UA) (Negative) Urine Ketones (Negative) Urine Occult Blood (Negative) Urine Nitrite (Negative) Urine Bilirubin (Negative) Urine Urobilinogen (0.2-1.0) Ur Leukocyte Esterase (Negative) Urine RBC (0-5) /hpf Urine WBC (0-5) /hpf Ur Epithelial Cells (0-5) /hpf Urine Bacteria (FEW) /hpf Urine Mucus (FEW) /hpf Ketones (0.0-0.3) mM SARS-CoV-2 RNA (SALLY) (NEGATIVE) 11/23/20 11/23/20 11/23/20 Range/Units 15:20 15:35 15:59 WBC (3.98-10.04) K/mm3 RBC (3.98-5.22) M/mm3 Hgb (11.2-15.7) gm/dl Hct (34.1-44.9) % MCV (79.4-94.8) fl MCH (25.6-32.2) pg MCHC (32.2-35.5) g/dl RDW Std Deviation (36.4-46.3) fL Plt Count (182-369) K/mm3 MPV (9.4-12.3) fl Neut % (Auto) (34.0-71.1) % Lymph % (Auto) (19.3-51.7) % [place] % (Auto) (4.7-12.5) % Eos % (Auto) (0.7-5.8) Baso % (Auto) (0.1-1.2) % Neut # (Auto) (1.56-6.13) K/mm3 Lymph # (Auto) (1.18-3.74) K/mm3 [place] # (Auto) (0.24-0.36) K/mm3 Eos # (Auto) (0.04-0.36) K/mm3 Baso # (Auto) (0.01-0.08) K/mm3 Manual Slide Review Puncture Site Rt radial ABG pH 7.28 L (7.35-7.45) ABG pCO2 25.3 L (35.0-45.0) mmHg ABG pO2 102.0 H (80.0-100.0) mmHg ABG HCO3 11.6 L (22.0-26.0) meq/L ABG O2 Saturation 97.0 (96.0-97.0) % ABG Base Excess -13.5 L (-2-2.0) Romario Test Positive O2 Delivery Device Room air Sodium (136-145) mEq/L Potassium (3.5-5.1) mEq/L Chloride (98-107) mEq/L Carbon Dioxide (21-32) mEq/L Anion Gap (5-15) BUN (7-18) mg/dL Creatinine (0.55-1.02) mg/dL Est Cr Clr Drug Dosing Estimated GFR (MDRD) (>60) mL/min BUN/Creatinine Ratio (14-18) Glucose (74-106) mg/dL POC Glucose 250 H 282 H (70-105) mg/dL Calcium (8.5-10.1) mg/dL Magnesium (1.8-2.4) mg/dl Total Bilirubin (0.2-1.0) mg/dL AST (15-37) U/L ALT (14-59) U/L Alkaline Phosphatase (46-116) U/L C-Reactive Protein (<1.0) mg/dL Total Protein (6.4-8.2) g/dl Albumin (3.4-5.0) g/dl Globulin gm/dL Albumin/Globulin Ratio (1-2) Urine Color (Yellow) Urine Appearance (Clear) Urine pH (5.0-8.0) Ur Specific [place] (1.005-1.030) Urine Protein (Negative) Urine Glucose (UA) (Negative) Urine Ketones (Negative) Urine Occult Blood (Negative) Urine Nitrite (Negative) Urine Bilirubin (Negative) Urine Urobilinogen (0.2-1.0) Ur Leukocyte Esterase (Negative) Urine RBC (0-5) /hpf Urine WBC (0-5) /hpf Ur Epithelial Cells (0-5) /hpf Urine Bacteria (FEW) /hpf Urine Mucus (FEW) /hpf Ketones (0.0-0.3) mM SARS-CoV-2 RNA (SALLY) (NEGATIVE) Result Diagrams: 11/23/20 11:20 11/23/20 15:00 Sepsis Event Note - Evaluation Sepsis Screening Result: No Definite Risk - Focused Exam Vital Signs: Vital Signs Temp Pulse Resp BP Pulse Ox 11/23/20 16:42 88 16 142/63 H 98 11/23/20 14:25 90 16 116/79 99 11/23/20 11:22 98.2 F 88 16 114/55 L 98 - Problem List (1) DKA (diabetic ketoacidoses) SNOMED Code(s): 393177870, 407669557 ICD Code: E11.10 - TYPE 2 DIABETES MELLITUS WITH KETOACIDOSIS WITHOUT COMA Status: Acute Current Visit: Yes Qualifiers: Diabetes mellitus type: type 1 Diabetes mellitus complication detail: without coma Qualified Code(s): E10.10 - Type 1 diabetes mellitus with ke toacidosis without coma (2) Acute kidney failure SNOMED Code(s): 24384881 ICD Code: N17.9 - ACUTE KIDNEY FAILURE, UNSPECIFIED Status: Acute Current Visit: Yes Problem List Initiated/Reviewed/Updated: Yes Orders Last 24hrs: Active Orders 24 hr Category Date Time Status Patient Status [ADT] Routine ADT 11/23/20 15:51 Active Blood Glucose Check, Bedside [RC] Q30M Care 11/23/20 12:15 Active Oxygen Therapy [RC] PRN Care 11/23/20 17:08 Ordered Peripheral IV Care [RC] . DIRECTED Care 11/23/20 11:13 Active Up ad [place] [RC] ASDIRECTED Care 11/23/20 17:08 Ordered VTE/DVT Education [RC] PER UNIT ROUTINE Care 11/23/20 17:08 Ordered Vital Signs [RC] Q4H Care 11/23/20 17:08 Ordered Nothing per Oral Now Diet [DIET] Diet 11/23/20 Dinner Ordered BASIC METABOLIC PANEL,BMP [CHEM] Routine Lab 11/23/20 17:07 Ordered MAGNESIUM [CHEM] Routine Lab 11/23/20 17:07 Ordered PH,VENOUS [BG] Routine Lab 11/23/20 17:07 Ordered Dextrose 5%-1/2 Normal Saline with KCl 20 mEq @ 150 mL/ Med 11/23/20 17:15 Ordered Hr (1000 mL) D5 1/2 NS w/ 20 mEq/L KCl 1,000 ml IV ASDIRECTED Enoxaparin [Lovenox] Med 11/24/20 09:00 Ordered 40 mg SUBCUT DAILY Insulin Regular, Human [HumuLIN R] 100 unit Med 11/23/20 12:15 Active Sodium Chloride 0.9% [Normal Saline] 99 ml IV TITRATE Ondansetron [Zofran] Med 11/23/20 17:08 Ordered 4 mg IV Q4H PRN Potassium Chloride [KCl in Water 10 MEQ/100 ML] 10 meq Med 11/23/20 17:15 Ordered Premix Bag 1 bag IV Q1H Sodium Chloride 0.9% [Saline Flush] Med 11/23/20 11:12 Active 10 ml FLUSH ASDIRECTED PRN Peripheral IV Insertion Adult [OM.PC] Stat Oth 11/23/20 11:12 Ordered Resuscitation Status Routine Resus Stat 11/23/20 17:08 Ordered Medication Orders Enoxaparin Sodium (Enoxaparin 40 Mg/0.4 Ml Syringe) 40 mg SUBCUT DAILY WILLIAM Insulin Human Regular 100 unit (/ Sodium Chloride) 100 mls @ 3 mls/hr IV TITRATE WILLIAM; Protocol Last Titration: 11/23/20 14:13 Dose: 4.5 unit/hr, 4.5 mls/hr Documented by: LEVAR Cosigned by: NOAH Admin: 11/23/20 12:45 Dose: 3 unit/hr, 3 mls/hr Documented by: NOAH Cosigned by: SHARON Potassium Chloride 10 meq/ (Premix) 100 mls @ 100 mls/hr IV Q1H WILLIAM Stop: 11/23/20 19:29 Potassium Chloride/Dextrose/Sod Cl (D5 1/2 Ns W/ 20 Meq/L Kcl) 1,000 mls @ 150 mls/hr IV ASDIRECTED WILLIAM Ondansetron HCl (Ondansetron 4 Mg/2 Ml Sdv) 4 mg IV Q4H PRN PRN Reason: Nausea/Vomiting Sodium Chloride (Sodium Chloride 0.9% 10 Ml Syringe) 10 ml FLUSH ASDIRECTED PRN PRN Reason: Keep Vein Open Last Admin: 11/23/20 11:19 Dose: 10 ml Documented by: NOAH Assessment/Plan Comment:: Assessment 55-year-old female with history of type 1 diabetes since 12 years of age developed viral gastroenteritis over the weekend with increasing blood sugars and acidosis. Diabetic ketoacidosis Presenting blood sugars 413 Serum ketones 1.0 Initial pH 7.35 with repeat at 7.28 Bicarb worsened from 18-16 on serum chemistry Partially compensated metabolic acidosis Blood sugar when I evaluated her was 199 Inciting event appears to be viral gastroenteritis now resolved At home on insulin pump with basal rate of 2 units/h with continuous glucose monitoring. She does not know her carb to insulin correction ratio Received approximately 4 L of normal saline in the ER Plan Admit to ICU N.p.o. Bedside blood sugar every hour Insulin drip Change IV fluids to D5 half-normal saline with 20 mEq of KCl Give 20 mEq of KCl IV x1 Recheck BMP, magnesium, venous pH every 2 to 4 hours Acute kidney injury Initial estimated GFR 47 and repeat 58 with hydration Plan Continue to monitor Should improve with rehydration and treatment of DKA Hypertension Blood pressure well controlled initially Hold home medications Plan Follow blood pressure in the ICU Treat with hydralazine if blood pressure is greater than 170/100 Leukocytosis Likely secondary to stress We will follow Chronic: Hyperlipidemia, hypertension, chronic renal sufficiency, diabetic nephropathy, neuropathy, hypothyroidism VTE prophylaxis with Lovenox CODE STATUS: Full code - Mortality Measure Prognosis:: Good
[2020-11-23] MEDS ORDERED: Benzocaine/Cetylpyridinium/Menthol Lozenge MUCMEM PRN (22:55)
[2020-11-23] MEDS ORDERED: Acetaminophen 325 MG Tab PO PRN (22:59)
[2020-11-24] MEDS ORDERED: Insulin Lispro 100 UNIT/ML 10 ML Vial SUBCUT ONE ×2 (04:51→06:52)
[2020-11-24] MEDS ORDERED: Levothyroxine 50 MCG Tab PO SCH (06:00)
[2020-11-24] MEDS ORDERED: Magnesium Sulfate/Water 2 GM in Premix Bag 1 BAG IV ONE (07:07)
[2020-11-24] MEDS ORDERED: Enoxaparin 40 MG/0.4 ML Syringe SUBCUT SCH (09:00)
[2020-11-24 10:44] LABS: HEMOGLOBIN A1C 6.4 %
--- NOTE | 2020-11-24 11:50 | PCM.DCSUM1 ---
Discharge Summary - Hospital Course HPI Initial Comments: 55-year-old female with type 1 diabetes presents to the emergency department after developing nausea and vomiting with diarrhea 3 days ago. On Sunday night patient developed the above symptoms a few hours after her developed the same symptoms. No known other contact, but they did eat chicken which they felt may be the cause of the gastroenteritis. Patient's symptoms continued throughout the next day but she did feel better today and did go to work. Unfortunately, her blood sugars have been consistently elevated over the last 3 days and she was above 300 which is very unusual for her when she presented to the emergency department her blood sugars were in the upper 200s and a metabolic panel showed it as high as 413. Patient does have a continuous glucose monitor and insulin pump. He did give herself an extra insulin bolus and had automatic boluses. Lab work when she arrived in the emergency department showed an anion gap of 22.9 with a bicarb of 18. PCO2 is 25 with a normal pH showing a compensated metabolic acidosis. Fortunately ketones were only 1. Magnesium was slightly low at 1.6 which was corrected in the emergency department. Slight leukocytosis of 12.4 likely stress. Assessment 55-year-old female with history of type 1 diabetes since 12 years of age developed viral gastroenteritis over the weekend with increasing blood sugars and acidosis. Diabetic ketoacidosis Presenting blood sugars 413 Serum ketones 1.0 Initial pH 7.35 with repeat at 7.28 Bicarb worsened from 18-16 on serum chemistry Partially compensated metabolic acidosis Blood sugar when I evaluated her was 199 Inciting event appears to be viral gastroenteritis now resolved At home on insulin pump with basal rate of 2 units/h with continuous glucose monitoring. She does not know her carb to insulin correction ratio Received approximately 4 L of normal saline in the ER Plan Admit to ICU N.p.o. Bedside blood sugar every hour Insulin drip Change IV fluids to D5 half-normal saline with 20 mEq of KCl Give 20 mEq of KCl IV x1 Recheck BMP, magnesium, venous pH every 2 to 4 hours Acute kidney injury Initial estimated GFR 47 and repeat 58 with hydration Plan Continue to monitor Should improve with rehydration and treatment of DKA Hypertension Blood pressure well controlled initially Hold home medications Plan Follow blood pressure in the ICU Treat with hydralazine if blood pressure is greater than 170/100 Leukocytosis Likely secondary to stress We will follow Chronic: Hyperlipidemia, hypertension, chronic renal sufficiency, diabetic nephropathy, neuropathy, hypothyroidism VTE prophylaxis with Lovenox CODE STATUS: Full code - Mortality Measure Prognosis:: Good Diagnosis: Stroke: No - Discharge Data Discharge Date: 11/24/20 Discharge Disposition: Home, Self-Care 01 Condition: Good - Referral to Home Health Primary Care Physician: Kobe Maravilla MD - Discharge Diagnosis/Problem(s) (1) DKA (diabetic ketoacidoses) SNOMED Code(s): 352832209, 779635301 ICD Code: E11.10 - TYPE 2 DIABETES MELLITUS WITH KETOACIDOSIS WITHOUT COMA Status: Acute Current Visit: Yes Qualifiers: Diabetes mellitus type: type 1 Diabetes mellitus complication detail: without coma Qualified Code(s): E10.10 - Type 1 diabetes mellitus with ketoacidosis without coma (2) Acute kidney failure SNOMED Code(s): 56263760 ICD Code: N17.9 - ACUTE KIDNEY FAILURE, UNSPECIFIED Status: Acute Current Visit: Yes - Patient Summary/Data Consults: Consultations 11/24/20 08:02 Consult to Dietary [Consult to [employer] Inspector] [CONS] Routine Hospital Course: Patient was admitted to the ICU on an insulin drip. She was placed on D5 half- normal saline, had placement of her hypokalemia and hypomagnesemia, and her anion gap closed late last night. Patient was then switched back to her subcu insulin and IV insulin drip was stopped. Blood sugars did increase a bit after that from the 160s 70s to 300, but this resolved this morning. Patient was discharged home in good condition back on her insulin pump. She had dietary and diabetic education work with her today. - Discharge Plan *PRESCRIPTION DRUG MONITORING PROGRAM REVIEWED*: No *COPY OF PRESCRIPTION DRUG MONITORING REPORT IN PATIENT COLETTE: No Home Medications: Home Meds Levothyroxine [Synthroid] 50 mcg PO DAILY 02/16/18 [History] Lisinopril 20 mg PO DAILY 02/16/18 [History] atorvaSTATin [Lipitor] 10 mg PO DAILY 02/16/18 [History] Insulin Aspart [NovoLOG] 2 unit SQ ASDIRECTED 09/14/20 [History] Timolol [Betimol] 1 ml EYEBOTH BEDTIME 09/14/20 [History] Patient Handouts: Diabetic Ketoacidosis, Preventing Diabetic Ketoacidosis Forms: ED Department Discharge Referrals: Kobe Maravilla MD [Primary Care Provider] - 12/02/20 10:45 am (10:45 check in time for 11:00 appointment, pring phot ID, insurance cards and hospital discharge instructions.) - Discharge Summary/Plan Comment DC Time >30 min.: Yes - General Info Date of Service: 11/24/20 Admission Dx/Problem (Free Text: Admission Diagnosis/Problem Admission Diagnosis/Problem Diabetic ketoacidosis Subjective Update: Patient is doing well. She is able to eat breakfast without difficulty. Blood sugars have stabilized just under 200. Functional Status: Reports: Pain Controlled - Review of Systems General: Reports: No Symptoms HEENT: Reports: No Symptoms Pulmonary: Reports: No Symptoms Cardiovascular: Reports: No Symptoms Gastrointestinal: Reports: No Symptoms Genitourinary: Reports: No Symptoms Musculoskeletal: Reports: No Symptoms Neurological: Reports: No Symptoms Psychiatric: Reports: No Symptoms - Patient Data Vitals - Most Recent: Last Vital Signs Temp 97.9 F 11/24/20 08:00 Pulse 78 11/23/20 17:31 Resp 14 11/24/20 08:00 BP 139/64 11/24/20 08:00 Pulse Ox 98 11/24/20 08:00 Weight - Most Recent: 210 lb I&O - Last 24 hours: Intake & Output 11/23/20 11/24/20 11/24/20 22:59 06:59 14:59 Intake Total 1330 Output Total 800 Balance 530 Lab Results - Last 24 hrs: Laboratory Results - last 24 hr 11/23/20 11/23/20 11/23/20 Range/Units 11:20 11:20 11:20 WBC 12.40 H (3.98-10.04) K/mm3 RBC 5.10 (3.98-5.22) M/mm3 Hgb 14.1 (11.2-15.7) gm/dl Hct 41.8 (34.1-44.9) % MCV 82.0 (79.4-94.8) fl MCH 27.6 (25.6-32.2) pg MCHC 33.7 (32.2-35.5) g/dl RDW Std Deviation 41.4 (36.4-46.3) fL Plt Count 225 (182-369) K/mm3 MPV 10.6 (9.4-12.3) fl Neut % (Auto) 89.9 H (34.0-71.1) % Lymph % (Auto) 6.9 L (19.3-51.7) % [place] % (Auto) 2.8 L (4.7-12.5) % Eos % (Auto) 0 L (0.7-5.8) Baso % (Auto) 0.2 (0.1-1.2) % Neut # (Auto) 11.14 H (1.56-6.13) K/mm3 Lymph # (Auto) 0.86 L (1.18-3.74) K/mm3 [place] # (Auto) 0.35 (0.24-0.36) K/mm3 Eos # (Auto) 0.00 L (0.04-0.36) K/mm3 Baso # (Auto) 0.02 (0.01-0.08) K/mm3 Manual Slide Review Abnormal smear Puncture Site ABG pH (7.35-7.45) ABG pCO2 (35.0-45.0) mmHg ABG pO2 (80.0-100.0) mmHg ABG HCO3 (22.0-26.0) meq/L ABG O2 Saturation (96.0-97.0) % ABG Base Excess (-2-2.0) Romario Test VBG pH (7.30-7.40) O2 Delivery Device Sodium 135 L D (136-145) mEq/L Potassium 3.9 (3.5-5.1) mEq/L Chloride 98 (98-107) mEq/L Carbon Dioxide 18 L D (21-32) mEq/L Anion Gap 22.9 H (5-15) BUN 24 H (7-18) mg/dL Creatinine 1.2 H (0.55-1.02) mg/dL Est Cr Clr Drug Dosing TNP Estimated GFR (MDRD) 47 (>60) mL/min BUN/Creatinine Ratio 20.0 H (14-18) Glucose 413 H (74-106) mg/dL POC Glucose (70-105) mg/dL Hemoglobin A1c ( - 5.6) % Calcium 9.2 (8.5-10.1) mg/dL Magnesium 1.6 L (1.8-2.4) mg/dl Total Bilirubin 0.7 (0.2-1.0) mg/dL AST 15 (15-37) U/L ALT 14 (14-59) U/L Alkaline Phosphatase 88 (46-116) U/L C-Reactive Protein 2.6 H* (<1.0) mg/dL Total Protein 7.4 (6.4-8.2) g/dl Albumin 3.6 (3.4-5.0) g/dl Globulin 3.8 gm/dL Albumin/Globulin Ratio 1.0 (1-2) TSH 3rd Generation (0.358-3.74) uIU/mL Urine Color (Yellow) Urine Appearance (Clear) Urine pH (5.0-8.0) Ur Specific [place] (1.005-1.030) Urine Protein (Negative) Urine Glucose (UA) (Negative) Urine Ketones (Negative) Urine Occult Blood (Negative) Urine Nitrite (Negative) Urine Bilirubin (Negative) Urine Urobilinogen (0.2-1.0) Ur Leukocyte Esterase (Negative) Urine RBC (0-5) /hpf Urine WBC (0-5) /hpf Ur Epithelial Cells (0-5) /hpf Urine Bacteria (FEW) /hpf Urine Mucus (FEW) /hpf Ketones 1.00 (0.0-0.3) mM SARS-CoV-2 RNA (SALLY) (NEGATIVE) 11/23/20 11/23/20 11/23/20 Range/Units 11:30 11:43 13:33 WBC (3.98-10.04) K/mm3 RBC (3.98-5.22) M/mm3 Hgb (11.2-15.7) gm/dl Hct (34.1-44.9) % MCV (79.4-94.8) fl MCH (25.6-32.2) pg MCHC (32.2-35.5) g/dl RDW Std Deviation (36.4-46.3) fL Plt Count (182-369) K/mm3 MPV (9.4-12.3) fl Neut % (Auto) (34.0-71.1) % Lymph % (Auto) (19.3-51.7) % [place] % (Auto) (4.7-12.5) % Eos % (Auto) (0.7-5.8) Baso % (Auto) (0.1-1.2) % Neut # (Auto) (1.56-6.13) K/mm3 Lymph # (Auto) (1.18-3.74) K/mm3 [place] # (Auto) (0.24-0.36) K/mm3 Eos # (Auto) (0.04-0.36) K/mm3 Baso # (Auto) (0.01-0.08) K/mm3 Manual Slide Review Puncture Site ABG pH (7.35-7.45) ABG pCO2 (35.0-45.0) mmHg ABG pO2 (80.0-100.0) mmHg ABG HCO3 (22.0-26.0) meq/L ABG O2 Saturation (96.0-97.0) % ABG Base Excess (-2-2.0) Romario Test VBG pH (7.30-7.40) O2 Delivery Device Sodium (136-145) mEq/L Potassium (3.5-5.1) mEq/L Chloride (98-107) mEq/L Carbon Dioxide (21-32) mEq/L Anion Gap (5-15) BUN (7-18) mg/dL Creatinine (0.55-1.02) mg/dL Est Cr Clr Drug Dosing Estimated GFR (MDRD) (>60) mL/min BUN/Creatinine Ratio (14-18) Glucose (74-106) mg/dL POC Glucose 346 H (70-105) mg/dL Hemoglobin A1c ( - 5.6) % Calcium (8.5-10.1) mg/dL Magnesium (1.8-2.4) mg/dl Total Bilirubin (0.2-1.0) mg/dL AST (15-37) U/L ALT (14-59) U/L Alkaline Phosphatase (46-116) U/L C-Reactive Protein (<1.0) mg/dL Total Protein (6.4-8.2) g/dl Albumin (3.4-5.0) g/dl Globulin gm/dL Albumin/Globulin Ratio (1-2) TSH 3rd Generation (0.358-3.74) uIU/mL Urine Color Yellow (Yellow) Urine Appearance Clear (Clear) Urine pH 5.5 (5.0-8.0) Ur Specific [place] 1.025 (1.005-1.030) Urine Protein Negative (Negative) Urine Glucose (UA) 2+ H (Negative) Urine Ketones 4+ H (Negative) Urine Occult Blood Trace-lysed H (Negative) Urine Nitrite Negative (Negative) Urine Bilirubin Negative (Negative) Urine Urobilinogen 0.2 (0.2-1.0) Ur Leukocyte Esterase Negative (Negative) Urine RBC 0-5 (0-5) /hpf Urine WBC 0-5 (0-5) /hpf Ur Epithelial Cells 0-5 (0-5) /hpf Urine Bacteria Few (FEW) /hpf Urine Mucus Not seen (FEW) /hpf Ketones (0.0-0.3) mM SARS-CoV-2 RNA (SALLY) Negative (NEGATIVE) 11/23/20 11/23/20 11/23/20 Range/Units 14:08 15:00 15:20 WBC (3.98-10.04) K/mm3 RBC (3.98-5.22) M/mm3 Hgb (11.2-15.7) gm/dl Hct (34.1-44.9) % MCV (79.4-94.8) fl MCH (25.6-32.2) pg MCHC (32.2-35.5) g/dl RDW Std Deviation (36.4-46.3) fL Plt Count (182-369) K/mm3 MPV (9.4-12.3) fl Neut % (Auto) (34.0-71.1) % Lymph % (Auto) (19.3-51.7) % [place] % (Auto) (4.7-12.5) % Eos % (Auto) (0.7-5.8) Baso % (Auto) (0.1-1.2) % Neut # (Auto) (1.56-6.13) K/mm3 Lymph # (Auto) (1.18-3.74) K/mm3 [place] # (Auto) (0.24-0.36) K/mm3 Eos # (Auto) (0.04-0.36) K/mm3 Baso # (Auto) (0.01-0.08) K/mm3 Manual Slide Review Puncture Site ABG pH (7.35-7.45) ABG pCO2 (35.0-45.0) mmHg ABG pO2 (80.0-100.0) mmHg ABG HCO3 (22.0-26.0) meq/L ABG O2 Saturation (96.0-97.0) % ABG Base Excess (-2-2.0) Romario Test VBG pH (7.30-7.40) O2 Delivery Device Sodium 142 (136-145) mEq/L Potassium 3.8 (3.5-5.1) mEq/L Chloride 107 (98-107) mEq/L Carbon Dioxide 16 L (21-32) mEq/L Anion Gap 22.8 H (5-15) BUN 22 H (7-18) mg/dL Creatinine 1.0 (0.55-1.02) mg/dL Est Cr Clr Drug Dosing TNP Estimated GFR (MDRD) 58 (>60) mL/min BUN/Creatinine Ratio 22.0 H (14-18) Glucose 295 H (74-106) mg/dL POC Glucose 350 H 250 H (70-105) mg/dL Hemoglobin A1c ( - 5.6) % Calcium 7.8 L (8.5-10.1) mg/dL Magnesium (1.8-2.4) mg/dl Total Bilirubin (0.2-1.0) mg/dL AST (15-37) U/L ALT (14-59) U/L Alkaline Phosphatase (46-116) U/L C-Reactive Protein (<1.0) mg/dL Total Protein (6.4-8.2) g/dl Albumin (3.4-5.0) g/dl Globulin gm/dL Albumin/Globulin Ratio (1-2) TSH 3rd Generation (0.358-3.74) uIU/mL Urine Color (Yellow) Urine Appearance (Clear) Urine pH (5.0-8.0) Ur Specific [place] (1.005-1.030) Urine Protein (Negative) Urine Glucose (UA) (Negative) Urine Ketones (Negative) Urine Occult Blood (Negative) Urine Nitrite (Negative) Urine Bilirubin (Negative) Urine Urobilinogen (0.2-1.0) Ur Leukocyte Esterase (Negative) Urine RBC (0-5) /hpf Urine WBC (0-5) /hpf Ur Epithelial Cells (0-5) /hpf Urine Bacteria (FEW) /hpf Urine Mucus (FEW) /hpf Ketones (0.0-0.3) mM SARS-CoV-2 RNA (SALLY) (NEGATIVE) 0311/23/20 11/23/20 Range/Units 15:35 15:59 17:07 WBC (3.98-10.04) K/mm3 RBC (3.98-5.22) M/mm3 Hgb (11.2-15.7) gm/dl Hct (34.1-44.9) % MCV (79.4-94.8) fl MCH (25.6-32.2) pg MCHC (32.2-35.5) g/dl RDW Std Deviation (36.4-46.3) fL Plt Count (182-369) K/mm3 MPV (9.4-12.3) fl Neut % (Auto) (34.0-71.1) % Lymph % (Auto) (19.3-51.7) % [place] % (Auto) (4.7-12.5) % Eos % (Auto) (0.7-5.8) Baso % (Auto) (0.1-1.2) % Neut # (Auto) (1.56-6.13) K/mm3 Lymph # (Auto) (1.18-3.74) K/mm3 [place] # (Auto) (0.24-0.36) K/mm3 Eos # (Auto) (0.04-0.36) K/mm3 Baso # (Auto) (0.01-0.08) K/mm3 Manual Slide Review Puncture Site Rt radial ABG pH 7.28 L (7.35-7.45) ABG pCO2 25.3 L (35.0-45.0) mmHg ABG pO2 102.0 H (80.0-100.0) mmHg ABG HCO3 11.6 L (22.0-26.0) meq/L ABG O2 Saturation 97.0 (96.0-97.0) % ABG Base Excess -13.5 L (-2-2.0) Romario Test Positive VBG pH 7.27 L (7.30-7.40) O2 Delivery Device Room air Sodium (136-145) mEq/L Potassium (3.5-5.1) mEq/L Chloride (98-107) mEq/L Carbon Dioxide (21-32) mEq/L Anion Gap (5-15) BUN (7-18) mg/dL Creatinine (0.55-1.02) mg/dL Est Cr Clr Drug Dosing Estimated GFR (MDRD) (>60) mL/min BUN/Creatinine Ratio (14-18) Glucose (74-106) mg/dL POC Glucose 282 H (70-105) mg/dL Hemoglobin A1c ( - 5.6) % Calcium (8.5-10.1) mg/dL Magnesium (1.8-2.4) mg/dl Total Bilirubin (0.2-1.0) mg/dL AST (15-37) U/L ALT (14-59) U/L Alkaline Phosphatase (46-116) U/L C-Reactive Protein (<1.0) mg/dL Total Protein (6.4-8.2) g/dl Albumin (3.4-5.0) g/dl Globulin gm/dL Albumin/Globulin Ratio (1-2) TSH 3rd Generation (0.358-3.74) uIU/mL Urine Color (Yellow) Urine Appearance (Clear) Urine pH (5.0-8.0) Ur Specific [place] (1.005-1.030) Urine Protein (Negative) Urine Glucose (UA) (Negative) Urine Ketones (Negative) Urine Occult Blood (Negative) Urine Nitrite (Negative) Urine Bilirubin (Negative) Urine Urobilinogen (0.2-1.0) Ur Leukocyte Esterase (Negative) Urine RBC (0-5) /hpf Urine WBC (0-5) /hpf Ur Epithelial Cells (0-5) /hpf Urine Bacteria (FEW) /hpf Urine Mucus (FEW) /hpf Ketones (0.0-0.3) mM SARS-CoV-2 RNA (SALLY) (NEGATIVE) 11/23/20 11/23/20 11/23/20 Range/Units 17:15 17:15 17:40 WBC (3.98-10.04) K/mm3 RBC (3.98-5.22) M/mm3 Hgb (11.2-15.7) gm/dl Hct (34.1-44.9) % MCV (79.4-94.8) fl MCH (25.6-32.2) pg MCHC (32.2-35.5) g/dl RDW Std Deviation (36.4-46.3) fL Plt Count (182-369) K/mm3 MPV (9.4-12.3) fl Neut % (Auto) (34.0-71.1) % Lymph % (Auto) (19.3-51.7) % [place] % (Auto) (4.7-12.5) % Eos % (Auto) (0.7-5.8) Baso % (Auto) (0.1-1.2) % Neut # (Auto) (1.56-6.13) K/mm3 Lymph # (Auto) (1.18-3.74) K/mm3 [place] # (Auto) (0.24-0.36) K/mm3 Eos # (Auto) (0.04-0.36) K/mm3 Baso # (Auto) (0.01-0.08) K/mm3 Manual Slide Review Puncture Site ABG pH (7.35-7.45) ABG pCO2 (35.0-45.0) mmHg ABG pO2 (80.0-100.0) mmHg ABG HCO3 (22.0-26.0) meq/L ABG O2 Saturation (96.0-97.0) % ABG Base Excess (-2-2.0) Romario Test VBG pH (7.30-7.40) O2 Delivery Device Sodium 142 (136-145) mEq/L Potassium 3.7 (3.5-5.1) mEq/L Chloride 107 (98-107) mEq/L Carbon Dioxide 16 L (21-32) mEq/L Anion Gap 22.7 H (5-15) BUN 18 (7-18) mg/dL Creatinine 0.9 (0.55-1.02) mg/dL Est Cr Clr Drug Dosing 64.30 Estimated GFR (MDRD) > 60 (>60) mL/min BUN/Creatinine Ratio 20.0 H (14-18) Glucose 235 H (74-106) mg/dL POC Glucose 227 H (70-105) mg/dL Hemoglobin A1c ( - 5.6) % Calcium 7.9 L (8.5-10.1) mg/dL Magnesium 2.0 (1.8-2.4) mg/dl Total Bilirubin (0.2-1.0) mg/dL AST (15-37) U/L ALT (14-59) U/L Alkaline Phosphatase (46-116) U/L C-Reactive Protein (<1.0) mg/dL Total Protein (6.4-8.2) g/dl Albumin (3.4-5.0) g/dl Globulin gm/dL Albumin/Globulin Ratio (1-2) TSH 3rd Generation 0.337 L (0.358-3.74) uIU/mL Urine Color (Yellow) Urine Appearance (Clear) Urine pH (5.0-8.0) Ur Specific [place] (1.005-1.030) Urine Protein (Negative) Urine Glucose (UA) (Negative) Urine Ketones (Negative) Urine Occult Blood (Negative) Urine Nitrite (Negative) Urine Bilirubin (Negative) Urine Urobilinogen (0.2-1.0) Ur Leukocyte Esterase (Negative) Urine RBC (0-5) /hpf Urine WBC (0-5) /hpf Ur Epithelial Cells (0-5) /hpf Urine Bacteria (FEW) /hpf Urine Mucus (FEW) /hpf Ketones (0.0-0.3) mM SARS-CoV-2 RNA (SALLY) (NEGATIVE) 11/23/20 11/23/20 11/23/20 Range/Units 18:46 19:52 20:59 WBC (3.98-10.04) K/mm3 RBC (3.98-5.22) M/mm3 Hgb (11.2-15.7) gm/dl Hct (34.1-44.9) % MCV (79.4-94.8) fl MCH (25.6-32.2) pg MCHC (32.2-35.5) g/dl RDW Std Deviation (36.4-46.3) fL Plt Count (182-369) K/mm3 MPV (9.4-12.3) fl Neut % (Auto) (34.0-71.1) % Lymph % (Auto) (19.3-51.7) % [place] % (Auto) (4.7-12.5) % Eos % (Auto) (0.7-5.8) Baso % (Auto) (0.1-1.2) % Neut # (Auto) (1.56-6.13) K/mm3 Lymph # (Auto) (1.18-3.74) K/mm3 [place] # (Auto) (0.24-0.36) K/mm3 Eos # (Auto) (0.04-0.36) K/mm3 Baso # (Auto) (0.01-0.08) K/mm3 Manual Slide Review Puncture Site ABG pH (7.35-7.45) ABG pCO2 (35.0-45.0) mmHg ABG pO2 (80.0-100.0) mmHg ABG HCO3 (22.0-26.0) meq/L ABG O2 Saturation (96.0-97.0) % ABG Base Excess (-2-2.0) Romario Test VBG pH (7.30-7.40) O2 Delivery Device Sodium (136-145) mEq/L Potassium (3.5-5.1) mEq/L Chloride (98-107) mEq/L Carbon Dioxide (21-32) mEq/L Anion Gap (5-15) BUN (7-18) mg/dL Creatinine (0.55-1.02) mg/dL Est Cr Clr Drug Dosing Estimated GFR (MDRD) (>60) mL/min BUN/Creatinine Ratio (14-18) Glucose (74-106) mg/dL POC Glucose 245 H 217 H 185 H (70-105) mg/dL Hemoglobin A1c ( - 5.6) % Calcium (8.5-10.1) mg/dL Magnesium (1.8-2.4) mg/dl Total Bilirubin (0.2-1.0) mg/dL AST (15-37) U/L ALT (14-59) U/L Alkaline Phosphatase (46-116) U/L C-Reactive Protein (<1.0) mg/dL Total Protein (6.4-8.2) g/dl Albumin (3.4-5.0) g/dl Globulin gm/dL Albumin/Globulin Ratio (1-2) TSH 3rd Generation (0.358-3.74) uIU/mL Urine Color (Yellow) Urine Appearance (Clear) Urine pH (5.0-8.0) Ur Specific [place] (1.005-1.030) Urine Protein (Negative) Urine Glucose (UA) (Negative) Urine Ketones (Negative) Urine Occult Blood (Negative) Urine Nitrite (Negative) Urine Bilirubin (Negative) Urine Urobilinogen (0.2-1.0) Ur Leukocyte Esterase (Negative) Urine RBC (0-5) /hpf Urine WBC (0-5) /hpf Ur Epithelial Cells (0-5) /hpf Urine Bacteria (FEW) /hpf Urine Mucus (FEW) /hpf Ketones (0.0-0.3) mM SARS-CoV-2 RNA (SALLY) (NEGATIVE) 11/23/20 11/23/20 11/23/20 Range/Units 21:47 21:50 22:00 WBC (3.98-10.04) K/mm3 RBC (3.98-5.22) M/mm3 Hgb (11.2-15.7) gm/dl Hct (34.1-44.9) % MCV (79.4-94.8) fl MCH (25.6-32.2) pg MCHC (32.2-35.5) g/dl RDW Std Deviation (36.4-46.3) fL Plt Count (182-369) K/mm3 MPV (9.4-12.3) fl Neut % (Auto) (34.0-71.1) % Lymph % (Auto) (19.3-51.7) % [place] % (Auto) (4.7-12.5) % Eos % (Auto) (0.7-5.8) Baso % (Auto) (0.1-1.2) % Neut # (Auto) (1.56-6.13) K/mm3 Lymph # (Auto) (1.18-3.74) K/mm3 [place] # (Auto) (0.24-0.36) K/mm3 Eos # (Auto) (0.04-0.36) K/mm3 Baso # (Auto) (0.01-0.08) K/mm3 Manual Slide Review Puncture Site ABG pH (7.35-7.45) ABG pCO2 (35.0-45.0) mmHg ABG pO2 (80.0-100.0) mmHg ABG HCO3 (22.0-26.0) meq/L ABG O2 Saturation (96.0-97.0) % ABG Base Excess (-2-2.0) Romario Test VBG pH 7.36 (7.30-7.40) O2 Delivery Device Sodium 142 (136-145) mEq/L Potassium 3.6 (3.5-5.1) mEq/L Chloride 111 H (98-107) mEq/L Carbon Dioxide 20 L (21-32) mEq/L Anion Gap 14.6 (5-15) BUN 16 (7-18) mg/dL Creatinine 1.0 (0.55-1.02) mg/dL Est Cr Clr Drug Dosing 57.87 Estimated GFR (MDRD) 58 (>60) mL/min BUN/Creatinine Ratio 16.0 (14-18) Glucose 172 H (74-106) mg/dL POC Glucose 163 H (70-105) mg/dL Hemoglobin A1c ( - 5.6) % Calcium 7.8 L (8.5-10.1) mg/dL Magnesium (1.8-2.4) mg/dl Total Bilirubin (0.2-1.0) mg/dL AST (15-37) U/L ALT (14-59) U/L Alkaline Phosphatase (46-116) U/L C-Reactive Protein (<1.0) mg/dL Total Protein (6.4-8.2) g/dl Albumin (3.4-5.0) g/dl Globulin gm/dL Albumin/Globulin Ratio (1-2) TSH 3rd Generation (0.358-3.74) uIU/mL Urine Color (Yellow) Urine Appearance (Clear) Urine pH (5.0-8.0) Ur Specific [place] (1.005-1.030) Urine Protein (Negative) Urine Glucose (UA) (Negative) Urine Ketones (Negative) Urine Occult Blood (Negative) Urine Nitrite (Negative) Urine Bilirubin (Negative) Urine Urobilinogen (0.2-1.0) Ur Leukocyte Esterase (Negative) Urine RBC (0-5) /hpf Urine WBC (0-5) /hpf Ur Epithelial Cells (0-5) /hpf Urine Bacteria (FEW) /hpf Urine Mucus (FEW) /hpf Ketones (0.0-0.3) mM SARS-CoV-2 RNA (SALLY) (NEGATIVE) 11/24/20 11/24/20 11/24/20 Range/Units 00:31 02:42 04:45 WBC (3.98-10.04) K/mm3 RBC (3.98-5.22) M/mm3 Hgb (11.2-15.7) gm/dl Hct (34.1-44.9) % MCV (79.4-94.8) fl MCH (25.6-32.2) pg MCHC (32.2-35.5) g/dl RDW Std Deviation (36.4-46.3) fL Plt Count (182-369) K/mm3 MPV (9.4-12.3) fl Neut % (Auto) (34.0-71.1) % Lymph % (Auto) (19.3-51.7) % [place] % (Auto) (4.7-12.5) % Eos % (Auto) (0.7-5.8) Baso % (Auto) (0.1-1.2) % Neut # (Auto) (1.56-6.13) K/mm3 Lymph # (Auto) (1.18-3.74) K/mm3 [place] # (Auto) (0.24-0.36) K/mm3 Eos # (Auto) (0.04-0.36) K/mm3 Baso # (Auto) (0.01-0.08) K/mm3 Manual Slide Review Puncture Site ABG pH (7.35-7.45) ABG pCO2 (35.0-45.0) mmHg ABG pO2 (80.0-100.0) mmHg ABG HCO3 (22.0-26.0) meq/L ABG O2 Saturation (96.0-97.0) % ABG Base Excess (-2-2.0) Romario Test VBG pH (7.30-7.40) O2 Delivery Device Sodium (136-145) mEq/L Potassium (3.5-5.1) mEq/L Chloride (98-107) mEq/L Carbon Dioxide (21-32) mEq/L Anion Gap (5-15) BUN (7-18) mg/dL Creatinine (0.55-1.02) mg/dL Est Cr Clr Drug Dosing Estimated GFR (MDRD) (>60) mL/min BUN/Creatinine Ratio (14-18) Glucose (74-106) mg/dL POC Glucose 169 H 247 H 299 H (70-105) mg/dL Hemoglobin A1c ( - 5.6) % Calcium (8.5-10.1) mg/dL Magnesium (1.8-2.4) mg/dl Total Bilirubin (0.2-1.0) mg/dL AST (15-37) U/L ALT (14-59) U/L Alkaline Phosphatase (46-116) U/L C-Reactive Protein (<1.0) mg/dL Total Protein (6.4-8.2) g/dl Albumin (3.4-5.0) g/dl Globulin gm/dL Albumin/Globulin Ratio (1-2) TSH 3rd Generation (0.358-3.74) uIU/mL Urine Color (Yellow) Urine Appearance (Clear) Urine pH (5.0-8.0) Ur Specific [place] (1.005-1.030) Urine Protein (Negative) Urine Glucose (UA) (Negative) Urine Ketones (Negative) Urine Occult Blood (Negative) Urine Nitrite (Negative) Urine Bilirubin (Negative) Urine Urobilinogen (0.2-1.0) Ur Leukocyte Esterase (Negative) Urine RBC (0-5) /hpf Urine WBC (0-5) /hpf Ur Epithelial Cells (0-5) /hpf Urine Bacteria (FEW) /hpf Urine Mucus (FEW) /hpf Ketones (0.0-0.3) mM SARS-CoV-2 RNA (SALLY) (NEGATIVE) 11/24/20 11/24/20 11/24/20 Range/Units 05:51 05:51 05:51 WBC 11.32 H (3.98-10.04) K/mm3 RBC 4.49 (3.98-5.22) M/mm3 Hgb 12.5 D (11.2-15.7) gm/dl Hct 37.1 (34.1-44.9) % MCV 82.6 (79.4-94.8) fl MCH 27.8 (25.6-32.2) pg MCHC 33.7 (32.2-35.5) g/dl RDW Std Deviation 41.9 (36.4-46.3) fL Plt Count 205 (182-369) K/mm3 MPV 10.7 (9.4-12.3) fl Neut % (Auto) 70.5 (34.0-71.1) % Lymph % (Auto) 20.1 (19.3-51.7) % [place] % (Auto) 8.6 (4.7-12.5) % Eos % (Auto) 0.4 L (0.7-5.8) Baso % (Auto) 0.2 (0.1-1.2) % Neut # (Auto) 7.98 H (1.56-6.13) K/mm3 Lymph # (Auto) 2.28 (1.18-3.74) K/mm3 [place] # (Auto) 0.97 H (0.24-0.36) K/mm3 Eos # (Auto) 0.05 (0.04-0.36) K/mm3 Baso # (Auto) 0.02 (0.01-0.08) K/mm3 Manual Slide Review Puncture Site ABG pH (7.35-7.45) ABG pCO2 (35.0-45.0) mmHg ABG pO2 (80.0-100.0) mmHg ABG HCO3 (22.0-26.0) meq/L ABG O2 Saturation (96.0-97.0) % ABG Base Excess (-2-2.0) Romario Test VBG pH (7.30-7.40) O2 Delivery Device Sodium 141 (136-145) mEq/L Potassium 3.9 (3.5-5.1) mEq/L Chloride 110 H (98-107) mEq/L Carbon Dioxide 17 L (21-32) mEq/L Anion Gap 17.9 H (5-15) BUN 15 (7-18) mg/dL Creatinine 0.8 (0.55-1.02) mg/dL Est Cr Clr Drug Dosing 72.34 Estimated GFR (MDRD) > 60 (>60) mL/min BUN/Creatinine Ratio 18.8 H (14-18) Glucose 314 H (74-106) mg/dL POC Glucose (70-105) mg/dL Hemoglobin A1c 6.4 H ( - 5.6) % Calcium 8.0 L (8.5-10.1) mg/dL Magnesium 1.7 L (1.8-2.4) mg/dl Total Bilirubin 0.5 (0.2-1.0) mg/dL AST 12 L (15-37) U/L ALT 13 L (14-59) U/L Alkaline Phosphatase 64 (46-116) U/L C-Reactive Protein (<1.0) mg/dL Total Protein 5.4 L (6.4-8.2) g/dl Albumin 2.5 L (3.4-5.0) g/dl Globulin 2.9 gm/dL Albumin/Globulin Ratio 0.9 L (1-2) TSH 3rd Generation (0.358-3.74) uIU/mL Urine Color (Yellow) Urine Appearance (Clear) Urine pH (5.0-8.0) Ur Specific [place] (1.005-1.030) Urine Protein (Negative) Urine Glucose (UA) (Negative) Urine Ketones (Negative) Urine Occult Blood (Negative) Urine Nitrite (Negative) Urine Bilirubin (Negative) Urine Urobilinogen (0.2-1.0) Ur Leukocyte Esterase (Negative) Urine RBC (0-5) /hpf Urine WBC (0-5) /hpf Ur Epithelial Cells (0-5) /hpf Urine Bacteria (FEW) /hpf Urine Mucus (FEW) /hpf Ketones (0.0-0.3) mM SARS-CoV-2 RNA (SALLY) (NEGATIVE) 11/24/20 11/24/20 Range/Units 06:48 08:55 WBC (3.98-10.04) K/mm3 RBC (3.98-5.22) M/mm3 Hgb (11.2-15.7) gm/dl Hct (34.1-44.9) % MCV (79.4-94.8) fl MCH (25.6-32.2) pg MCHC (32.2-35.5) g/dl RDW Std Deviation (36.4-46.3) fL Plt Count (182-369) K/mm3 MPV (9.4-12.3) fl Neut % (Auto) (34.0-71.1) % Lymph % (Auto) (19.3-51.7) % [place] % (Auto) (4.7-12.5) % Eos % (Auto) (0.7-5.8) Baso % (Auto) (0.1-1.2) % Neut # (Auto) (1.56-6.13) K/mm3 Lymph # (Auto) (1.18-3.74) K/mm3 [place] # (Auto) (0.24-0.36) K/mm3 Eos # (Auto) (0.04-0.36) K/mm3 Baso # (Auto) (0.01-0.08) K/mm3 Manual Slide Review Puncture Site ABG pH (7.35-7.45) ABG pCO2 (35.0-45.0) mmHg ABG pO2 (80.0-100.0) mmHg ABG HCO3 (22.0-26.0) meq/L ABG O2 Saturation (96.0-97.0) % ABG Base Excess (-2-2.0) Romario Test VBG pH (7.30-7.40) O2 Delivery Device Sodium (136-145) mEq/L Potassium (3.5-5.1) mEq/L Chloride (98-107) mEq/L Carbon Dioxide (21-32) mEq/L Anion Gap (5-15) BUN (7-18) mg/dL Creatinine (0.55-1.02) mg/dL Est Cr Clr Drug Dosing Estimated GFR (MDRD) (>60) mL/min BUN/Creatinine Ratio (14-18) Glucose (74-106) mg/dL POC Glucose 264 H 185 H (70-105) mg/dL Hemoglobin A1c ( - 5.6) % Calcium (8.5-10.1) mg/dL Magnesium (1.8-2.4) mg/dl Total Bilirubin (0.2-1.0) mg/dL AST (15-37) U/L ALT (14-59) U/L Alkaline Phosphatase (46-116) U/L C-Reactive Protein (<1.0) mg/dL Total Protein (6.4-8.2) g/dl Albumin (3.4-5.0) g/dl Globulin gm/dL Albumin/Globulin Ratio (1-2) TSH 3rd Generation (0.358-3.74) uIU/mL Urine Color (Yellow) Urine Appearance (Clear) Urine pH (5.0-8.0) Ur Specific [place] (1.005-1.030) Urine Protein (Negative) Urine Glucose (UA) (Negative) Urine Ketones (Negative) Urine Occult Blood (Negative) Urine Nitrite (Negative) Urine Bilirubin (Negative) Urine Urobilinogen (0.2-1.0) Ur Leukocyte Esterase (Negative) Urine RBC (0-5) /hpf Urine WBC (0-5) /hpf Ur Epithelial Cells (0-5) /hpf Urine Bacteria (FEW) /hpf Urine Mucus (FEW) /hpf Ketones (0.0-0.3) mM SARS-CoV-2 RNA (SALLY) (NEGATIVE) Med Orders - Current: Current Medications Acetaminophen (Acetaminophen 325 Mg Tab) 650 mg PO Q4H PRN PRN Reason: Pain/Fever Last Admin: 11/23/20 23:23 Dose: 650 mg Documented by: Benzocaine/Menthol (Benzocaine/Cetylpyridinium/Menthol Lozenge) 1 lozenge MUCMEM Q4HR PRN PRN Reason: Sore Throat Last Admin: 11/23/20 23:23 Dose: 1 lozenge Documented by: Enoxaparin Sodium (Enoxaparin 40 Mg/0.4 Ml Syringe) 40 mg SUBCUT DAILY WILLIAM Last Admin: 11/24/20 08:04 Dose: 40 mg Documented by: Insulin Human Regular 100 unit (/ Sodium Chloride) 100 mls @ 3 mls/hr IV TITRATE WILLIAM; Protocol Last Titration: 11/23/20 22:30 Dose: 0 unit/hr, 0 mls/hr Documented by: Potassium Chloride/Dextrose/Sod Cl (D5 1/2 Ns W/ 20 Meq/L Kcl) 1,000 mls @ 150 mls/hr IV ASDIRECTED WILLIAM Last Infusion: 11/23/20 22:30 Dose: 0 mls/hr Documented by: Ondansetron HCl (Ondansetron 4 Mg/2 Ml Sdv) 4 mg IV Q4H PRN PRN Reason: Nausea/Vomiting Sodium Chloride (Sodium Chloride 0.9% 10 Ml Syringe) 10 ml FLUSH ASDIRECTED PRN PRN Reason: Keep Vein Open Last Admin: 11/23/20 11:19 Dose: 10 ml Documented by: Timolol Maleate (Timolol Maleate 0.5% Ophth Soln 5 Ml Bottle) 0 ml EYEBOTH BEDTIME WILLIAM Discontinued Medications Sodium Chloride (Normal Saline) 1,000 mls @ 999 mls/hr IV NOW STA Stop: 11/23/20 12:23 Last Admin: 11/23/20 11:32 Dose: 999 mls/hr Documented by: Sodium Chloride (Normal Saline) 1,000 mls @ 999 mls/hr IV NOW STA Stop: 11/23/20 13:14 Last Admin: 11/23/20 12:40 Dose: 999 mls/hr Documented by: Magnesium Sulfate (Magnesium Sulfate In Water 2 Gm/50 Ml) 2 gm in 50 mls @ 25 mls/hr IV Q1H [facility] Last Admin: 11/23/20 12:26 Dose: Not Given Documented by: Magnesium Sulfate (Magnesium Sulfate In Water 2 Gm/50 Ml) 2 gm in 50 mls @ 25 mls/hr IV ONETIME ONE Stop: 11/23/20 14:15 Last Admin: 11/23/20 12:35 Dose: 25 mls/hr Documented by: Sodium Chloride (Normal Saline) 1,000 mls @ 999 mls/hr IV NOW STA Stop: 11/23/20 14:47 Last Admin: 11/23/20 14:12 Dose: 999 mls/hr Documented by: Lactated Ringer's (Ringers, Lactated) 1,000 mls @ 999 mls/hr IV ASDIRECTED [facility] Last Admin: 11/23/20 16:10 Dose: 999 mls/hr Documented by: Dextrose/Sodium Chloride (Dextrose 5%-Normal Saline) 1,000 mls @ 150 mls/hr IV ASDIRECTED [facility] Last Admin: 11/23/20 16:50 Dose: 150 mls/hr Documented by: Potassium Chloride 10 meq/ (Premix) 100 mls @ 100 mls/hr IV Q1H [facility] Stop: 11/23/20 19:29 Last Admin: 11/23/20 18:46 Dose: 100 mls/hr Documented by: Magnesium Sulfate 2 gm/ Premix 50 mls @ 25 mls/hr IV ONETIME ONE Stop: 11/24/20 09:06 Last Admin: 11/24/20 07:58 Dose: 25 mls/hr Documented by: Insulin Human Lispro (Insulin Lispro 100 Unit/Ml) 5 unit SUBCUT ONETIME ONE Stop: 11/24/20 04:52 Last Admin: 11/24/20 05:01 Dose: 5 units Documented by: Insulin Human Lispro (Insulin Lispro 100 Unit/Ml) 5 unit SUBCUT ONETIME ONE Stop: 11/24/20 06:53 Last Admin: 11/24/20 07:09 Dose: 5 units Documented by: Levothyroxine Sodium (Levothyroxine 50 Mcg Tab) 50 mcg PO ACBREAKFAST WILLIAM - Exam General: Reports: Alert, Oriented HEENT: Reports: Pupils Equal, Mucous Membr. Moist/[place] Neck: Reports: Supple Lungs: Reports: Clear to Auscultation, Normal Respiratory Effort Cardiovascular: Reports: Regular Rate, Regular Rhythm GI/Abdominal Exam: Normal Bowel Sounds, Soft, Non-Tender, No Organomegaly, No Distention, No Abnormal Bruit Extremities: Normal Inspection, Normal Range of Motion, Non-Tender, No Pedal Edema, Normal Capillary Refill Skin: Reports: Warm, Dry, Intact Neurological: Reports: No New Focal Deficit Psy/Mental Status: Reports: Alert, Normal Affect, Normal Mood
[2020-11-24] MEDS ORDERED: Timolol Maleate 0.5% Ophth Soln 5 ML Bottle EYEBOTH SCH (21:00)
== END 2020-11-24 12:45 | disposition home or self-care (01) | DRG 420 ==
LOC: JD.ED 10:42 → JD.ICU 15:51
PROVIDERS: ADMIT Family Medicine; ATTEND Family Medicine
DX: E10.10 Type 1 diabetes mellitus with ketoacidosis without coma (principal); N17.9 Acute kidney failure, unspecified; E78.5 Hyperlipidemia, unspecified; E03.9 Hypothyroidism, unspecified; E10.21 Type 1 diabetes mellitus with diabetic nephropathy; E10.42 Type 1 diabetes mellitus with diabetic polyneuropathy; N18.9 Chronic kidney disease, unspecified; I12.9 Hypertensive chronic kidney disease with stage 1 through stage 4 chronic kidney disease, or unspecified chronic kidney disease; E87.6 Hypokalemia; E83.42 Hypomagnesemia; H54.7 Unspecified visual loss; E78.00 Pure hypercholesterolemia, unspecified; E66.9 Obesity, unspecified; Z20.822 Contact with and (suspected) exposure to COVID-19; Z98.890 Other specified postprocedural states; Z79.890 Hormone replacement therapy; Z79.4 Long term (current) use of insulin; Z79.899 Other long term (current) drug therapy; Z68.34 Body mass index [BMI] 34.0-34.9, adult
CPT/HCPCS: 36415; 36600; 80048; 80053; 81001; 82009; 82800; 82803; 82962; 83036; 83735; 84443; 85025; 86140; 99222; 99239; 99285; A9270-GY; J1650; J1815-GY; J3475; J3480; J7030; J7042; J7120; U0002

== ENCOUNTER → 2023-03-15 | Day surgery (SDC) | payer OTHER ==
[~2023-03-15] MED LIST: Brimonidine 0.2% Ophth Soln 5 ML Bottle EYEBOTH SCH
[2023-03-15] MEDS: Brimonidine 0.2% Ophth Soln 15 ML Bottle EYEBOTH SCH ×2 (14:52→15:51)
[2023-03-15] MEDS: Phenylephrine 2.5% Ophth Soln 2 ML Bot EYEBOTH SCH ×2 (14:55→15:09)
[2023-03-15] MEDS: Tropicamide 1% Ophth Soln 15 ML Bottle EYEBOTH SCH ×2 (15:00→15:20)
== END ==
LOC: JD.SDS 13:51
PROVIDERS: ATTEND Ophthalmology
DX: H40.033 Anatomical narrow angle, bilateral (principal); E78.00 Pure hypercholesterolemia, unspecified; I10 Essential (primary) hypertension; E11.43 Type 2 diabetes mellitus with diabetic autonomic (poly)neuropathy; K31.84 Gastroparesis
CPT/HCPCS: 66761; A9270; J3490